=== PATIENT | male | born 1985 | race Caucasian/White ===

== ENCOUNTER 2018-02-26 13:13 | Emergency (ER) | payer BC, OTHER ==
--- OUTSIDE RECORDS SUMMARY | 2018-02-26 13:16 | XMS REPORT | Clinical Summary ---
:1985 Author Organization [facility] Address [address] [place] [id number] Phone Care Team Providers Name Role Phone Unavailable Primary Care Provider Unavailable Allergies Active Allergy Reactions Severity Noted Date Comments Sulfa (Sulfonamide Antibiotics) Anaphylaxis High 10/12/2015 Current Medications No known medications Active Problems Problem Noted Date Kidney stone 02/03/2016 Social History Tobacco Use Types Packs/Day Years Used Date Current Every Day Smoker 0.5 15 Smokeless Tobacco: Current User Chew Alcohol Use Drinks/Week oz/Week Comments No Sex Assigned at Date Recorded Not on file Last Filed Vital Signs Not on file Plan of Treatment Not on file Implants Implanted Type Area Terminal Worker Device Expiration Model / Identifier Date Serial / Lot Set Stent Injection 6x28cm [id number] - [id number] Stents-[employer] 2017 [id number] / Implanted: Qty: 1 on 02/03/2016 by Edgardo Almonte MD [facility] SCI: ONCOLOGY / [id number] Results Not on fileafter 02/25/2017
--- OUTSIDE RECORDS SUMMARY | 2018-02-26 13:16 | XMS REPORT | Clinical Summary ---
:1985 Author Organization [facility] Address [address] [place] [address] Care Team Providers Name Role Phone Asked, No Pcp Primary Care Provider Unavailable Allergies Active Allergy Reactions Severity Noted Date Comments Sulfa (Sulfonamide Antibiotics) 02/23/2016 THROAT SWELL Current Medications Prescription Sig. Disp. Refills Start Date End Date Status baclofen (LIORESAL) TAKE 1 TO 2 60 tablet 2 09/18/2017 Active 10 MG TABLETS BY tabletIndications: MOUTH AT Ankylosing BEDTIME FOR spondylitis of MUSCLE SPASMS lumbosacral region, Encounter for long-term (current) use of high-risk medication, Hyperuricemia, Fatigue, unspecified type, Renal insufficiency, Acute idiopathic gout of foot, unspecified laterality, Encounter for monitoring of methotrexate therapy, Leukocytosis, unspecified type folic acid Take 2 tablets 60 tablet 11 09/18/2017 Active (FOLVITE) 1 MG (2 mg total) by 9 tabletIndications: mouth daily. Ankylosing spondylitis of lumbosacral region, Encounter for long-term (current) use of high-risk medication, Hyperuricemia, Acute idiopathic gout of foot, unspecified laterality, Encounter for monitoring of methotrexate therapy, Leukocytosis, unspecified type, Renal insufficiency sertraline (ZOLOFT) Take 1 tablet 30 tablet 11 09/18/2017 Active 50 MG (50 mg total) 9 tabletIndications: by mouth daily. Acute idiopathic gout of foot, unspecified laterality, Hyperuricemia, Ankylosing spondylitis of lumbosacral region, Encounter for long-term (current) use of high-risk medication, Renal insufficiency, Depressed mood, Encounter for monitoring of methotrexate therapy, Leukocytosis, unspecified type, Obesity (BMI 30-39.9) methotrexate 2.5 MG Take 8 tablets 32 tablet 2 12/20/2017 Active tabletIndications: (20 mg total) 8 Ankylosing by mouth once a spondylitis of week for 90 lumbosacral region, days. 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 baclofen (LIORESAL) TAKE 1 TO 2 60 tablet 2 01/21/2017 Discontinued 10 MG TABLETS BY 7 tabletIndications: MOUTH AT (ankylosing BEDTIME FOR spondylitis), MUSCLE SPASMS Encounter for long-term (current) use of high-risk medication, Hyperuricemia, Fatigue, unspecified type, Renal insufficiency DULoxetine Take 1 capsule 30 capsule 2 01/21/2017 Discontinued (CYMBALTA) 60 MG (60 mg total) 7 capsuleIndications: by mouth daily. (ankylosing spondylitis), Encounter for long-term (current) use of high-risk medication, Hyperuricemia, Fatigue, unspecified type, Renal insufficiency methotrexate 2.5 MG Take 5 tablets 20 tablet 2 01/21/2017 Discontinued tabletIndications: (12.5 mg total) 7 (ankylosing by mouth once a spondylitis), week for 90 Encounter for days. long-term (current) use of high-risk medication folic acid Take 1 tablet 30 tablet 11 01/21/2017 Discontinued (FOLVITE) 1 MG (1 mg total) by 7 tabletIndications: mouth daily. (ankylosing spondylitis), Encounter for long-term (current) use of high-risk medication traMADol (ULTRAM) Take 1 tablet 120 tablet 2 01/21/2017 50 mg (50 mg total) 7 tabletIndications: by mouth every (ankylosing 6 (six) hours spondylitis), as needed for Encounter for moderate pain long-term (current) for up to 90 use of high-risk days. medication certolizumab pegol Inject 2 mL 6 mL 0 01/21/2017 (CIMZIA) 400 mg/2 (400 mg total) 7 mL (200 mg/mL x 2) under the skin syringe every 28 days kitIndications: for 90 days. (ankylosing spondylitis) ULORIC 40 mg TAKE 1 TABLET 30 tablet 0 02/18/2017 Discontinued tabletIndications: BY MOUTH EVERY 7 (ankylosing DAY spondylitis), Encounter for long-term (current) use of high-risk medication, Hyperuricemia, Fatigue, unspecified type, Renal insufficiency febuxostat (ULORIC) Take 1 tablet 30 tablet 2 02/26/2017 Discontinued 80 mg (80 mg total) 7 tabletIndications: by mouth daily (ankylosing for 90 days. spondylitis), Encounter for long-term (current) use of high-risk medication, Hyperuricemia, Fatigue, unspecified type, Renal insufficiency, Acute idiopathic gout of foot, unspecified laterality predniSONE Take 1 tablet 18 tablet 2 02/26/2017 Discontinued (DELTASONE) 10 mg (10 mg total) 7 tabletIndications: by mouth take Acute idiopathic as directed gout of foot, (take 3-2-1 unspecified tabs for 3-3-3 laterality, days each dose) Hyperuricemia, for up to 9 (ankylosing days. spondylitis), Encounter for long-term (current) use of high-risk medication, Renal insufficiency sertraline (ZOLOFT) Take 1 tablet 30 tablet 11 02/26/2017 Discontinued 25 MG (25 mg total) 7 tabletIndications: by mouth daily. Acute idiopathic gout of foot, unspecified laterality, Hyperuricemia, (ankylosing spondylitis), Encounter for long-term (current) use of high-risk medication, Renal insufficiency, Depressed mood predniSONE Take 1 tablet 20 tablet 0 03/05/2017 (DELTASONE) 10 mg (10 mg total) 7 tabletIndications: by mouth take Acute idiopathic as directed gout of foot, (take 4-3-2-1 unspecified tabs for laterality, 3-3-3-3 days Hyperuricemia, each dose) for (ankylosing up to 12 days. spondylitis), Encounter for long-term (current) use of high-risk medication, Renal insufficiency methotrexate 2.5 MG TAKE 5 TABLETS 20 tablet 2 04/11/2017 Discontinued tabletIndications: BY MOUTH ONCE A 7 (ankylosing WEEK spondylitis), Encounter for long-term (current) use of high-risk medication DULoxetine TAKE ONE 30 capsule 2 04/17/2017 Discontinued (CYMBALTA) 60 MG CAPSULE BY 7 capsule MOUTH EVERY DAY baclofen (LIORESAL) TAKE 1 TO 2 60 tablet 2 04/17/2017 Discontinued 10 MG TABLETS BY 7 tabletIndications: MOUTH AT (ankylosing BEDTIME FOR spondylitis), MUSCLE SPASMS Encounter for long-term (current) use of high-risk medication, Hyperuricemia, Fatigue, unspecified type, Renal insufficiency DULoxetine Take 1 capsule 30 capsule 2 04/18/2017 Discontinued (CYMBALTA) 60 MG (60 mg total) 7 capsule by mouth once daily for 30 days. certolizumab pegol Inject 400 mg Discontinued (CIMZIA) 400 mg/2 under the skin 7 mL (200 mg/mL x 2) every 14 syringe kit (fourteen) days. t injection every other week baclofen (LIORESAL) TAKE 1 TO 2 60 tablet 2 04/25/2017 Discontinued 10 MG TABLETS BY 8 tabletIndications: MOUTH AT (ankylosing BEDTIME FOR spondylitis), MUSCLE SPASMS Encounter for long-term (current) use of high-risk medication, Hyperuricemia, Fatigue, unspecified type, Renal insufficiency, Acute idiopathic gout of foot, unspecified laterality, Encounter for monitoring of methotrexate therapy methotrexate 2.5 MG Take 7 tablets 28 tablet 2 04/25/2017 tabletIndications: (17.5 mg total) 7 (ankylosing by mouth once a spondylitis), week for 90 Encounter for days. long-term (current) use of high-risk medication, Hyperuricemia, Acute idiopathic gout of foot, unspecified laterality, Encounter for monitoring of methotrexate therapy folic acid Take 2 tablets 60 tablet 11 04/25/2017 Discontinued (FOLVITE) 1 MG (2 mg total) by 8 tabletIndications: mouth daily. (ankylosing spondylitis), Encounter for long-term (current) use of high-risk medication, Hyperuricemia, Acute idiopathic gout of foot, unspecified laterality, Encounter for monitoring of methotrexate therapy sertraline (ZOLOFT) Take 1 tablet 30 tablet 11 04/25/2017 Discontinued 25 MG (25 mg total) 7 tabletIndications: by mouth daily. Acute idiopathic gout of foot, unspecified laterality, Hyperuricemia, (ankylosing spondylitis), Encounter for long-term (current) use of high-risk medication, Renal insufficiency, Depressed mood, Encounter for monitoring of methotrexate therapy febuxostat (ULORIC) Take 1 tablet 30 tablet 2 04/25/2017 80 mg (80 mg total) 7 tabletIndications: by mouth daily (ankylosing for 90 days. spondylitis), Encounter for long-term (current) use of high-risk medication, Hyperuricemia, Fatigue, unspecified type, Renal insufficiency, Acute idiopathic gout of foot, unspecified laterality, Encounter for monitoring of methotrexate therapy predniSONE Take 1 tablet 30 tablet 2 04/25/2017 (DELTASONE) 5 mg (5 mg total) by 7 tabletIndications: mouth daily for (ankylosing 90 days. spondylitis), Encounter for long-term (current) use of high-risk medication, Hyperuricemia, Acute idiopathic gout of foot, unspecified laterality, Encounter for monitoring of methotrexate therapy certolizumab pegol Inject 2 mL 4 mL 2 05/08/2017 (CIMZIA) 400 mg/2 (400 mg total) 7 mL (200 mg/mL x 2) under the skin syringe every 14 kitIndications: (fourteen) days (ankylosing for 90 days. spondylitis) sertraline (ZOLOFT) Take 1 tablet 30 tablet 11 07/05/2017 Discontinued 50 MG (50 mg total) 8 tabletIndications: by mouth daily. Acute idiopathic gout of foot, unspecified laterality, Hyperuricemia, Ankylosing spondylitis of lumbosacral region, Encounter for long-term (current) use of high-risk medication, Renal insufficiency, Depressed mood, Encounter for monitoring of methotrexate therapy, Leukocytosis, unspecified type, Obesity (BMI 30-39.9) methotrexate 2.5 MG TAKE 5 TABLETS 20 tablet 2 08/26/2017 Discontinued tabletIndications: BY MOUTH ONCE A 8 (ankylosing WEEK spondylitis), Encounter for long-term (current) use of high-risk medication baclofen (LIORESAL) TAKE 1 TO 2 60 tablet 2 08/29/2017 Discontinued 10 MG TABLETS BY 8 tabletIndications: MOUTH AT (ankylosing BEDTIME FOR spondylitis), MUSCLE SPASMS Encounter for long-term (current) use of high-risk medication, Hyperuricemia, Fatigue, unspecified type, Renal insufficiency DULoxetine TAKE ONE 30 capsule 2 08/29/2017 Discontinued (CYMBALTA) 60 MG CAPSULE BY 8 capsule MOUTH EVERY DAY DULoxetine Take 1 capsule 30 capsule 3 08/14/2017 (CYMBALTA) 60 MG (60 mg total) 7 capsule by mouth daily for 30 days. DULoxetine Take 1 capsule 30 capsule 2 09/18/2017 Discontinued (CYMBALTA) 60 MG (60 mg total) 8 capsuleIndications: by mouth once Ankylosing daily. spondylitis of lumbosacral region, Leukocytosis, unspecified type, Renal insufficiency, Hyperuricemia methotrexate 2.5 MG Take 7 tablets 28 tablet 2 09/18/2017 Discontinued tabletIndications: (17.5 mg total) 8 Ankylosing by mouth once a spondylitis of week for 90 lumbosacral region, days. Encounter for long-term (current) use of high-risk medication, Leukocytosis, unspecified type, Renal insufficiency, Hyperuricemia febuxostat (ULORIC) Take 1 tablet 90 tablet 1 09/18/2017 80 mg (80 mg total) 8 tabletIndications: by mouth daily Ankylosing for 90 days. spondylitis of lumbosacral region, Leukocytosis, unspecified type, Renal insufficiency, Hyperuricemia certolizumab pegol Inject 2 mL 2 mL 2 09/18/2017 Discontinued (CIMZIA) 400 mg/2 (400 mg total) 8 mL (200 mg/mL x 2) under the skin syringe every 28 days kitIndications: for 90 days. Ankylosing spondylitis of lumbosacral region methotrexate 2.5 MG Take 8 tablets 32 tablet 2 09/27/2017 Discontinued tabletIndications: (20 mg total) 8 Ankylosing by mouth once a spondylitis of week for 90 lumbosacral region, days. Encounter for long-term (current) use of high-risk medication, Leukocytosis, unspecified type, Renal insufficiency, Hyperuricemia, Encounter for methotrexate monitoring, Fall (on) (from) other stairs and steps, initial encounter, Hip injury, left, initial encounter clobetasol Apply topically 30 g 0 09/27/2017 (TEMOVATE) 0.05 % 2 (two) times a 8 ointmentIndications day for 14 : Ankylosing days. spondylitis of lumbosacral region, Leukocytosis, unspecified type, Encounter for long-term (current) use of high-risk medication, Hyperuricemia, Encounter for methotrexate monitoring, Fall (on) (from) other stairs and steps, initial encounter, Hip injury, left, initial encounter certolizumab pegol Inject 1 mL 6 mL 0 09/27/2017 (CIMZIA) 400 mg/2 (200 mg total) 8 mL (200 mg/mL x 2) under the skin syringe every 14 kitIndications: (fourteen) days Ankylosing for 90 days. spondylitis of lumbosacral region acetaminophen-codei Take 1-2 150 tablet 0 10/07/2017 ne (TYLENOL WITH tablets by 8 CODEINE #3) 300-30 mouth every 8 mg per (eight) hours tabletIndications: as needed for Ankylosing moderate pain spondylitis of for up to 30 lumbosacral region days. febuxostat (ULORIC) Take 80 mg by Discontinued 80 mg tablet mouth daily. 8 predniSONE Take 1-2 60 tablet 2 12/20/2017 Discontinued (DELTASONE) 5 mg tablets (5-10 8 tabletIndications: mg total) by Ankylosing mouth daily for spondylitis of 90 days. 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, Encounter for methotrexate monitoring, Hyperuricemia Hospital, Clinic, or Other Ordered Dose Route Frequency Start Date End Date Status Facility Administered Medication methylPREDNISolone acetate 160 mg IM once 02/26/2017 02/26/2017 Ended (DEPO-MEDROL) injection 160 mgIndications: Acute idiopathic gout of foot, unspecified laterality methylPREDNISolone acetate 40 mg IM once 12/12/2017 12/12/2017 Ended (DEPO-MEDROL) injection 40 mgIndications: Acute idiopathic gout, unspecified site methylPREDNISolone acetate 80 mg IM once 12/20/2017 12/20/2017 Ended (DEPO-MEDROL) injection 80 mgIndications: Ankylosing spondylitis of multiple sites in spine Active Problems Problem Noted Date 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 12/20/2017 Encounter for methotrexate monitoring 09/27/2017 Fall (on) (from) other stairs and steps, initial encounter 09/27/2017 Hip injury, left, initial encounter 09/27/2017 Rash and nonspecific skin eruption 09/27/2017 Depressed mood 02/26/2017 (ankylosing spondylitis) 06/29/2016 Encounter for long-term (current) use of high-risk medication 06/29/2016 Hyperuricemia 06/29/2016 Nephrolithiasis 06/29/2016 Renal insufficiency 06/29/2016 Fatigue 06/29/2016 Obesity (BMI 30-39.9) 06/29/2016 Acute right flank pain 04/28/2016 Calculus of urinary bladder 04/28/2016 Leukocytosis 04/28/2016 Encounters Date Type Specialty Care Team Description 02/03/2018 Documentation Rheumatology maryam Santiago MA 01/20/2018 Office Visit Orthopedic Surgery Jay, Left hip pain (Primary Dx); Lizandro Hargrove MD Femoroacetabular impingement of left hip; Tendinitis involving left hip abductors; Hip instability, left; Labral tear of hip, degenerative 01/08/2018 Orders Only Rheumatology Annel Rivera, 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 (Primary Dx); Ankylosing spondylitis of lumbosacral region; Nephrolithiasis; Renal insufficiency; Obesity (BMI 30-39.9); Encounter for methotrexate monitoring; Hyperuricemia 12/27/2017 Orders Only Rheumatology Annel Rivera, Hip injury, left, MD initial encounter (Primary Dx) 12/20/2017 Hospital Encounter Radiology Annel Rivera, Ankylosing spondylitis of lumbosacral region; Leukocytosis, unspecified type; Encounter for long-term (current) use of high-risk medication; Hyperuricemia; Encounter for methotrexate monitoring; Fall (on) (from) other stairs and steps, initial encounter; Hip injury, left, initial encounter 12/20/2017 Office Visit Rheumatology Annel Rivera, Ankylosing spondylitis of lumbosacral region (Primary Dx); Nephrolithiasis; Renal insufficiency; Obesity (BMI 30-39.9); 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; Encounter for methotrexate monitoring; Hyperuricemia; Fatigue, unspecified type; Fall (on) (from) other stairs and steps, initial encounter; Encounter for long-term (current) use of high-risk medication; Leukocytosis, unspecified type 12/20/2017 Orders Only Rheumatology Jack, Ankylosing spondylitis DAT Miles of multiple sites in spine (Primary Dx) 12/12/2017 Clinical Support Rheumatology 12/12/2017 Orders Only Rheumatology Jack, Acute idiopathic gout, DAT Miles unspecified site (Primary Dx) 10/07/2017 Orders Only Rheumatology Annel Rivera, Ankylosing spondylitis MD of lumbosacral region (Primary Dx) 09/27/2017 Hospital Encounter Radiology Annel Rivera, Ankylosing spondylitis of lumbosacral region; Leukocytosis, unspecified type; Encounter for long-term (current) use of high-risk medication; Hyperuricemia; Encounter for methotrexate monitoring; Fall (on) (from) other stairs and steps, initial encounter; Hip injury, left, initial encounter 09/27/2017 Hospital Encounter Radiology Annel Rivera, Ankylosing spondylitis of lumbosacral region; Leukocytosis, unspecified type; Encounter for long-term (current) use of high-risk medication; Hyperuricemia; Encounter for methotrexate monitoring; Fall (on) (from) other stairs and steps, initial encounter; Hip injury, left, initial encounter 09/27/2017 Office Visit Rheumatology Annel Rivera, Ankylosing spondylitis of lumbosacral region (Primary Dx); Leukocytosis, unspecified type; Encounter for long-term (current) use of high-risk medication; Hyperuricemia; Fatigue, unspecified type; Depressed mood; Obesity (BMI 30-39.9); Encounter for methotrexate monitoring; Fall (on) (from) other stairs and steps, initial encounter; Hip injury, left, initial encounter; Renal insufficiency; Rash and nonspecific skin eruption 09/27/2017 Procedure Pass Radiology 09/18/2017 Orders Only Rheumatology MiguelIliaAnnel, Ankylosing spondylitis of lumbosacral region (Primary Dx); Leukocytosis, unspecified type; Renal insufficiency; Encounter for long-term (current) use of high-risk medication; Hyperuricemia; Fatigue, unspecified type; Acute idiopathic gout of foot, unspecified laterality; Encounter for monitoring of methotrexate therapy; Depressed mood; Obesity (BMI 30-39.9) 08/14/2017 Refill Rheumatology Ginger Santiago MA 08/09/2017 Refill Rheumatology Annel Rivera AS (ankylosing spondylitis); Encounter for long-term (current) use of high-risk medication; Hyperuricemia; Fatigue, unspecified type; Renal insufficiency 08/07/2017 Refill Rheumatology Annel Rivera AS (ankylosing spondylitis); Encounter for long-term (current) use of high-risk medication 07/05/2017 Office Visit Rheumatology Annel Rivera, Ankylosing spondylitis of lumbosacral region (Primary Dx); Encounter for long-term (current) use of high-risk medication; Renal insufficiency; Nephrolithiasis; Leukocytosis, unspecified type; Obesity (BMI 30-39.9); Depressed mood; Fatigue, unspecified type; Hyperuricemia; Encounter for monitoring of methotrexate therapy; Acute idiopathic gout of foot, unspecified laterality; Ankylosing spondylitis of multiple sites in spine 04/25/2017 Office Visit Rheumatology Annel Rivera AS (ankylosing spondylitis) (Primary Dx); Acute right flank pain; Obesity (BMI 30-39.9); Leukocytosis, unspecified type; Calculus of urinary bladder; Nephrolithiasis; Renal insufficiency; Encounter for long-term (current) use of high-risk medication; Hyperuricemia; Fatigue, unspecified type; Depressed mood; Acute idiopathic gout of foot, unspecified laterality; Encounter for monitoring of methotrexate therapy 04/18/2017 Refill Rheumatology Ginger Santiago MA 04/13/2017 Refill Rheumatology Annel Rivera AS (ankylosing spondylitis); Encounter for long-term (current) use of high-risk medication; Hyperuricemia; Fatigue, unspecified type; Renal insufficiency 04/11/2017 Refill Rheumatology Annel Rivera AS (ankylosing spondylitis); Encounter for long-term (current) use of high-risk medication 03/05/2017 Orders Only Rheumatology Annel Rivera, Acute idiopathic gout of foot, unspecified laterality; Hyperuricemia; (ankylosing spondylitis); Encounter for long-term (current) use of high-risk medication; Renal insufficiency 02/26/2017 Office Visit Rheumatology Annel Rivera, Acute idiopathic gout of foot, unspecified laterality (Primary Dx); Hyperuricemia; (ankylosing spondylitis); Encounter for long-term (current) use of high-risk medication; Fatigue, unspecified type; Depressed mood; Renal insufficiency after 02/25/2017 Family History Medical History Relation Name Comments Diabetes Father No Known Problems Mother Diabetes Paternal Grandfather Diabetes Paternal Uncle Diabetes Paternal Uncle Relation Name Status Comments Father Mother Paternal Grandfather Paternal Uncle Paternal Uncle Social History Tobacco Use Types Packs/Day Years Used Date Former Smoker 0.5 10 Smokeless Tobacco: Never Used Comments: quit 02/06/16 Alcohol Use Drinks/Week oz/Week Comments Yes rarely Sex Assigned at Date Recorded Not on file Last Filed Vital Signs Vital Sign Reading Time Taken Blood Pressure 143/89 12/20/2017 10:43 AM CDT Pulse 85 12/20/2017 10:43 AM CDT Temperature 36.6 C (97.8 F) 01/20/2018 8:40 AM CDT Respiratory Rate - - Oxygen Saturation 98% 09/27/2017 12: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 Inhaled Oxygen Concentration - - Weight 113 kg (250 lb) 01/20/2018 8:40 AM CDT Height 177.8 cm (5' 10") 01/20/2018 8:40 AM CDT Body Mass Index 35.87 01/20/2018 8:40 AM CDT Plan of Treatment Health Maintenance Due Date Last Done Comments INFLUENZA VACCINE 04/16/2018 Implants Implanted Type Area Commutator Presser Device Expiration Model / Identifier Date Serial / Lot Stent Uretl S-Flx Kwart Retro-Inject 6fr 28cm - [id number] Peripheral or N/A: [employer] 10/20/2018 [id number] / Implanted: 03/06/2016 (Quantity not on file) Biliary Stents N/A / [id number] Results Urinalysis, automated with microscopy (01/20/2018 10:55 AM)Only the most recent of3 resultswithin the time period is included. Component Value Ref Range Color, UA YELLOW YELLOW Appearance CLEAR CLEAR Specific gravity, urine 1.015 1.001 - 1.035 pH, urine 6.0 5.0 - 8.0 Glucose, urine TRACE (A) NEGATIVE Bilirubin, UA NEGATIVE NEGATIVE Ketones, UA NEGATIVE NEGATIVE Occult blood, urine NEGATIVE NEGATIVE Protein, UA NEGATIVE NEGATIVE Nitrite, UA NEGATIVE NEGATIVE Leukocyte esterase, UA NEGATIVE NEGATIVE WBC, UA NONE SEEN < OR=5 /HPF RBC, UA NONE SEEN < OR=2 /HPF Squamous epithelial cells, UA NONE SEEN < OR=5 /HPF Bacteria, UA NONE SEEN NONE SEEN /HPF Hyaline casts, UA NONE SEEN NONE SEEN /LPF Specimen Performing Laboratory Urine [facility] Narrative FASTING:NO FASTING: NO Sedimentation rate (01/20/2018 10:55 AM)Only the most recent of3 resultswithin the time period is included. Component Value Ref Range Sedimentation rate 2 < OR=15 mm/h Specimen Performing Laboratory Blood [facility] Narrative FASTING:NO FASTING: NO CBC with platelet and differential (01/20/2018 10:55 AM)Only the most recent of3 resultswithin the time period is included. Component Value Ref Range WBC 19.7 (H) 3.8 - 10.8 Thousand/uL RBC 5.54 4.20 - 5.80 Million/uL HGB 15.8 13.2 - 17.1 g/dL HCT 48.0 38.5 - 50.0 % MCV 86.6 80.0 - 100.0 fL MCH 28.5 27.0 - 33.0 pg MCHC 32.9 32.0 - 36.0 g/dL RDW 14.9 11.0 - 15.0 % Platelet count 332 140 - 400 Thousand/uL MPV 9.1 7.5 - 12.5 fL Neutrophils, absolute 12,352 (H) 1,500 - 7,800 cells/uL Lymphocytes, absolute 5,555 (H) 850 - 3,900 cells/uL Monocytes, absolute 1,517 (H) 200 - 950 cells/uL Eosinophils, absolute 138 15 - 500 cells/uL Basophils, absolute 138 0 - 200 cells/uL Neutrophils 62.7 % Lymphocytes 28.2 % Monocytes 7.7 % Eosinophils 0.7 % Basophils + RC 0.7 % Nucleated RBC <enter> Comment: Review of peripheral smear confirms automated results. Specimen Performing Laboratory [facility] Narrative FASTING:NO FASTING: NO C-reactive protein (01/20/2018 10:55 AM)Only the most recent of3 resultswithin the time period is included. Component Value Ref Range CRP 11.8 (H) <8.0 mg/L Specimen Performing Laboratory [facility] Narrative FASTING:NO FASTING: NO Uric acid level (01/20/2018 10:55 AM)Only the most recent of3 resultswithin the time period is included. Component Value Ref Range Uric acid 4.4 4.0 - 8.0 mg/dL Comment: Therapeutic target for gout patients: <6.0 mg/dL Specimen Performing Laboratory [facility] Narrative FASTING:NO FASTING: NO Comprehensive metabolic panel (01/20/2018 10:55 AM)Only the most recent of3 resultswithin the time period is included. Component Value Ref Range Glucose 97 65 - 139 mg/dL Comment: Non-fasting reference interval BUN, whole blood 20 7 - 25 mg/dL Creatinine 1.04 0.60 - 1.35 mg/dL EGFR Non-Afr. Ukrainian 96 > OR=60 mL/min/1.73m2 EGFR 111 > OR=60 mL/min/1.73m2 BUN/creatinine ratio NOT APPLICABLE 6 - 22 (calc) Sodium 143 135 - 146 mmol/L Potassium 3.8 3.5 - 5.3 mmol/L Chloride 104 98 - 110 mmol/L CO2 27 20 - 31 mmol/L Calcium 10.1 8.6 - 10.3 mg/dL Protein 6.8 6.1 - 8.1 g/dL Albumin, S 3.9 3.6 - 5.1 g/dL Globulin, total 2.9 1.9 - 3.7 g/dL (calc) Albumin/globulin ratio 1.3 1.0 - 2.5 (calc) Total bilirubin 0.3 0.2 - 1.2 mg/dL Alkaline phosphatase 82 40 - 115 U/L AST 11 10 - 40 U/L ALT 19 9 - 46 U/L Specimen Performing Laboratory [facility] Narrative FASTING:NO FASTING: NO XR Hip 4 Views Left (01/20/2018 8:52 AM) Specimen Performing Laboratory [place] [id number] Narrative tonnis 0. LCEA 23 deg. Cam KAUR alpha angle 77 degrees. No fx. No HO MRI Lower Extremity Joint Wo Contrast Left (12/20/2017 6:32 PM) [place] [address] Narrative EXAMINATION:MRI LOWER EXTREMITY JOINT WO CONTRAST LEFT CLINICAL HISTORY:M45.7 Ankylosing spondylitis of lumbosacral region, D72.829 Elevated white blood cell countunspecified, patinet with ASrecent fall from height wiht left hip injury TECHNIQUE: Multiplanar, multisequence MR imaging examination of the lefthip obtained without contrast. COMPARISON:X-ray, 09/27/2017 IMPRESSION: 1.Osseous bump at the anterior superior femoral head neck junction with loss of sphericity. This can be seen with cam-type KAUR. A subtle nondisplaced anterosuperior labral tear is noted on series 10 image 1 and series 5 image 12. 2.A small focus of subcortical marrow signal abnormality in the posterior inferior femoral head may indicate a contrecoup injury in the setting of KAUR. 3.No acute fracture or AVN identified in the left hip or femoral head. Incidental note is made of a zone of AVN superiorly in the contralateral femoral head partially visualized. There is no definite cortical collapse, though there is mild flattening in the posterior superior right femoral head. 4.No left hip joint effusion or synovitis. No erosion identified. 5.Visualized portion of the sciatic nerve well-maintained. The partially visualized urinary bladder is distended. 6.Mild gluteus medius medius and minimus insertional tendinitis, without a discrete tear identified. Remaining visualized muscle groups are well- maintained. SUMMARY: CAM-type KAUR with nondisplaced anterosuperior labral tear and possible contrecoup injury in the posterior inferior femoral head. No acute fracture identified. Mild gluteal tendinitis. AVN in the contralateral femoral head partially visualized. [facility]-[id number] Procedure Note [facility], Radiology Results Incoming - 12/20/2017 8:13 PM CDT EXAMINATION: MRI LOWER EXTREMITY JOINT WO CONTRAST LEFT CLINICAL HISTORY: M45.7 Ankylosing spondylitis of lumbosacral region, D72.829 Elevated white blood cell count unspecified, patinet with recent fall from height wiht left hip injury TECHNIQUE: Multiplanar, multisequence MR imaging examination of the left hip obtained without contrast. COMPARISON: X-ray, 09/27/2017 IMPRESSION: 1. Osseous bump at the anterior superior femoral head neck junction with loss of sphericity. This can be seen with cam-type KAUR. A subtle nondisplaced anterosuperior labral tear is noted on series 10 image 1 and series 5 image 12. 2. A small focus of subcortical marrow signal abnormality in the posterior inferior femoral head may indicate a contrecoup injury in the setting of KAUR. 3. No acute fracture or AVN identified in the left hip or femoral head. Incidental note is made of a zone of AVN superiorly in the contralateral femoral head partially visualized. There is no definite cortical collapse, though there is mild flattening in the posterior superior right femoral head. 4. No left hip joint effusion or synovitis. No erosion identified. 5. Visualized portion of the sciatic nerve well-maintained. The partially visualized urinary bladder is distended. 6. Mild gluteus medius medius and minimus insertional tendinitis, without a discrete tear identified. Remaining visualized muscle groups are well- maintained. SUMMARY: CAM-type KAUR with nondisplaced anterosuperior labral tear and possible contrecoup injury in the posterior inferior femoral head. No acute fracture identified. Mild gluteal tendinitis. AVN in the contralateral femoral head partially visualized. [facility]-[id number] XR Sacroiliac Joints 3+ Vw (09/27/2017 2:45 PM) Specimen Performing Laboratory [facility] [address] [place] [id number] Narrative EXAMINATION:XR SACROILIAC JOINTS 3VW CLINICAL HISTORY:M45.7 Ankylosing spondylitis of lumbosacral region, D72.829 Elevated white blood cell countunspecified, . recent fall wiht left SIJ pain IMPRESSION: 3 views were obtained. The sacroiliac joints bilaterally are well aligned. There is no evidence of bony fusion of the joint. There is no evidence of subchondral sclerosis or lytic changes. The sacrum and iliac bones are unremarkable. There is no evidence of significant osteoarthritic changes. [facility][id number] Procedure Note Interface, Radiology Results Incoming - 09/27/2017 5:24 PM DRAWING IN MACHINE TENDER EXAMINATION: XR SACROILIAC JOINTS 3 VW CLINICAL HISTORY: M45.7 Ankylosing spondylitis of lumbosacral region, D72.829 Elevated white blood cell count unspecified, . recent fall wiht left SIJ pain IMPRESSION: 3 views were obtained. The sacroiliac joints bilaterally are well aligned. There is no evidence of bony fusion of the joint. There is no evidence of subchondral sclerosis or lytic changes. The sacrum and iliac bones are unremarkable. There is no evidence of significant osteoarthritic changes. [id number] XR Hip 2-3 View Left (09/27/2017 2:45 PM) Specimen Performing Laboratory [facility] [address] [place] [address] Narrative EXAMINATION:XR HIP 2-3 VIEWS LEFT CLINICAL HISTORY:M45.7 Ankylosing spondylitis of lumbosacral region, D72.829 Elevated white blood cell countunspecified, patinet with ASrecent fall from height wiht left hip injury COMPARISON:None. IMPRESSION: There is no evidence of left hip fracture, dislocation, or joint effusion. Bone mineralization is normal. [facility]-[id number] Procedure Note Hm Interface, Radiology Results Incoming - 09/27/2017 3:18 PM DRAWING IN MACHINE TENDER EXAMINATION: XR HIP 2-3 VIEWS LEFT CLINICAL HISTORY: M45.7 Ankylosing spondylitis of lumbosacral region, D72.829 Elevated white blood cell count unspecified, patinet with recent fall from height wiht left hip injury COMPARISON: None. IMPRESSION: There is no evidence of left hip fracture, dislocation, or joint effusion. Bone mineralization is normal. [facility]-[id number] TB GOLD Quantiferon (07/05/2017 11:23 AM) Component Value Ref Range Quantiferon TB gold NEGATIVE NEGATIVE Comment: Negative test result. M. tuberculosis complex infection unlikely. Quantiferon NIL value 0.07 IU/mL Quantiferon mitogen NIL value >10.00 IU/mL Quantiferon TB NIL value 0.00 IU/mL Comment: The Nil tube value is used to determine if the patient has a preexisting immune response which could cause a false-positive reading on the test. In order for a test to be valid, the Nil tube must have a value of less than or equal to 8.0 IU/mL. The mitogen control tube is used to assure the patient has a healthy immune status and also serves as a control for correct blood handling and incubation. It is used to detect false-negative readings. The mitogen tube must have a gamma interferon value of greater than or equal to 0.5 IU/mL higher than the value of the Nil tube. The TB antigen tube is coated with the M. tuberculosis specific antigens. For a test to be considered positive, the TB antigen tube value minus the Nil tube value must be greater than or equal to 0.35 IU/mL. For additional information, please refer to http://education.[employer]/faq/QFT (This link is being provided for informational/ educational purposes only.) Specimen Performing Laboratory [facility] Narrative FASTING:YES Vitamin D 25 hydroxy level (07/05/2017 11:23 AM) Component Value Ref Range Vitamin D, 25-hydroxy 42 30 - 100 ng/mL Comment: Vitamin D Status 25-OH Vitamin D: Deficiency:<20 ng/mL Insufficiency: 20 - 29 ng/mL Optimal: > or=30 ng/mL For 25-OH Vitamin D testing on patients on D2-supplementation and patients for whom quantitation of D2 and D3 fractions is required, the QuestAssureD(TM) 25-OH VIT D, (D2,D3), LC/MS/MS is recommended: order code 88056 (patients >2yrs). For more information on this test, go to: http://education.[employer]/faq/SWH859 (This link is being provided for informational/educational purposes only.) Specimen Performing Laboratory [facility] Narrative FASTING:YES Thyroid stimulating hormone (07/05/2017 11:23 AM) Component Value Ref Range TSH 2.17 0.40 - 4.50 mIU/L Specimen Performing Laboratory [facility] Narrative FASTING:YES T4, free (07/05/2017 11:23 AM) Component Value Ref Range T4, free 1.2 0.8 - 1.8 ng/dL Specimen Performing Laboratory [facility] Narrative FASTING:YES after 02/25/2017 Insurance Payer Benefit Plan / Group Subscriber ID Type Phone Address BCBS BS OUT OF STATE xxxxxxxxxxxx PPO Home: [address] [phone] [phone]
[2018-02-26] MEDS ORDERED: NA CHLORIDE 0.9% 1,000 ML ONE (14:16)
[2018-02-26] MEDS ORDERED: MORPHINE 4 MG/ML SYR ONE (14:16)
[2018-02-26 14:21] LABS: Potassium 3.6 mEq/L (3.6-5.0)
[2018-02-26 14:24] LABS: Albumin 3.9 g/dL (3.2-5.5); Bilirubin Total 0.8 mg/dL (0.3-1.2); Protein, Total 8.1 g/dL (6.0-8.3)
[2018-02-26 14:32] LABS: Absolute Lymphocytes (CBC) 3.3 K/uL (0.7-4.9); Absolute Monocytes 2.8 K/uL (0.1-1.3); Absolute Neutrophil 14.3 K/uL (1.8-8.0); Eosinophils % 2.7 % (0-4.4); Hematocrit 44.8 % (39.6-49.0); Lymphocytes % 15.8 % (15.3-44.8); MCH 28.2 pg (27.0-35.0); MCV 85.2 fL (80-100); MPV 7.7 fL (7.6-11.3); Monocytes % 13.3 % (3.3-12.3); RBC Red Blood Cell Count 5.26 M/uL (4.33-5.43)
[2018-02-26 15:33] LABS: Urine Blood 1+ (NEG); Urine Glucose NEGATIVE (NEG); Urine Protein TRACE (NEG)
--- NOTE | 2018-02-26 15:34 | ER ---
Nurse's Notes [facility] Name: Seble Potter II Age: 32 yrs Sex: Male : 1985 Arrival Date: 02/26/2018 Time: 13:17 Bed 16 Private MD: None, None Diagnosis: Acute embolism and thrombosis of deep veins of lower extremity;Urinary tract infection, site not specified Presentation: 02/26 13:22 Presenting complaint: Patient states: Left leg pain since Saturday that is worse with aj movement. Patient also reports vomiting since Saturday as well. Transition of care: patient was not received from another setting of care. Onset of symptoms was February 23, 2018. Risk Assessment: Do you want to hurt yourself or someone else? Patient reports no desire to harm self or others. Care prior to arrival: None. 13:22 Method Of Arrival: Ambulatory 13:22 Acuity: KARL 3 16:02 Initial Sepsis Screen: Does the patient meet any 2 criteria? No. Patient's initial jl7 sepsis screen is negative. Does the patient have a suspected source of infection? No. Patient's initial sepsis screen is negative. Triage Assessment: 13:24 General: Appears in no apparent distress. uncomfortable, Behavior is calm, cooperative, aj appropriate for age. Pain: Complains of pain in left leg Pain currently is 7 out of 10 on a pain scale. Neuro: Level of Consciousness is awake, alert, obeys commands, Oriented to person, place, time, situation, Appropriate for age. Respiratory: Airway is patent Respiratory effort is even, unlabored, Respiratory pattern is regular, symmetrical. GI: Reports nausea, vomiting. Derm: Skin is intact, is healthy with good turgor, Skin is pink, warm \T\ dry. normal. Musculoskeletal: Reports pain in left leg. Historical: - Allergies: 13:24 Sulfa (Sulfonamide Antibiotics); aj - Home Meds: 13:24 cimzia [Active]; Methotrexate Sodium Oral [Active]; Baclofen Oral [Active]; aj - PMHx: 13:24 Colitis; Gout; Kidney stones; ankylosing spondilitis; aj - Immunization history:: Adult Immunizations up to date. - Social history:: Smoking status: Patient/guardian denies using tobacco. - Ebola Screening: : Patient negative for fever greater than or equal to 101.5 degrees Fahrenheit, and additional compatible Ebola Virus Disease symptoms Patient denies exposure to infectious person Patient denies travel to an Ebola-affected area in the 21 days before illness onset No symptoms or risks identified at this time. - Family history:: not pertinent. - Hospitalizations: : No recent hospitalization is reported. Screenin:33 Abuse screen: Denies threats or abuse. Denies injuries from another. Nutritional jl7 screening: Has had N/V for 3 or more days. Tuberculosis screening: No symptoms or risk factors identified. Fall Risk IV access (20 points). Total Dupree Fall Scale indicates No Risk (0-24 pts). Assessment: 13:33 General: Appears in no apparent distress. uncomfortable, Behavior is calm, cooperative, jl7 appropriate for age. Pain: Complains of pain in left gluteus erinn Pain radiates to left gluteal fold, left hamstring, posterior aspect of left knee, left calf and medial aspect of left thigh Pain currently is 7 out of 10 on a pain scale. Quality of pain is described as aching, Pain began 2-3 days ago. Is continuous. Neuro: Level of Consciousness is awake, alert, obeys commands, Oriented to person, place, time, situation. Cardiovascular: Patient's skin is warm and dry. Respiratory: Airway is patent Respiratory effort is even, unlabored, Respiratory pattern is regular, symmetrical. GI: Abdomen is round non-distended, Reports diarrhea, nausea, vomiting, since Saturday. : No signs and/or symptoms were reported regarding the genitourinary system. EENT: No signs and/or symptoms were reported regarding the EENT system. Derm: Skin is pink, warm \T\ dry. Musculoskeletal: Reports pain in left leg since Saturday. 14:58 Reassessment: Patient and/or family updated on plan of care and expected duration. Pain jl7 level reassessed. Patient is alert, oriented x 3, equal unlabored respirations, skin warm/dry/pink. Vital Signs: 13:24 BP 135 / 92; Pulse 115; Resp 20; Temp 98.0; Pulse Ox 96% on R/A; Weight 117.93 kg; aj Height 5 ft. 10 in. (177.80 cm); Pain 7/10; 15:30 BP 146 / 90; Pulse 98; Resp 16; Pulse Ox 97% ; jl7 13:24 Body Mass Index 37.31 (117.93 kg, 177.80 cm) aj ED Course: 13:17 Patient arrived in ED. mr 13:17 None, None is Private Physician. mr 13:23 Triage completed. aj 13:24 Arm band placed on left wrist. Patient placed in an exam room. aj 13:28 Sb Upton, RN is Primary Nurse. jl7 13:33 Patient has correct armband on for positive identification. Placed in gown. Bed in low jl7 position. Call light in reach. Side rails up X 1. Pulse ox on. NIBP on. 13:36 Steph Fragoso FNP is PHCP. kav 13:36 Misha Tse MD is Attending Physician. kav 13:45 Initial lab(s) drawn, by me, sent to lab. Urine collected: clean catch specimen, jeffery mh5 colored. Inserted saline lock: 22 gauge in left hand, using aseptic technique. Blood collected. 14:30 Patient taken to ultrasound. aa4 14:47 US Extremity Venous Unilateral Ltd In Process Unspecified. EDMS 14:47 Ultrasound completed. Patient moved back from ultrasound. aa4 14:58 CPK Sent. jl7 15:44 Pillow given. Pulse ox on. NIBP on. mh5 16:00 No provider procedures requiring assistance completed. IV discontinued, intact, jl7 bleeding controlled, No redness/swelling at site. Pressure dressing applied. Administered Medications: 14:57 Drug: NS 0.9% 1000 ml Route: IV; Rate: 1000 ml; Site: left antecubital; jl7 16:00 Follow up: IV Status: Completed infusion jl7 14:58 Not Given (Other Intervention Used): NS 0.9% 1000 ml IV at 125 ml/hr continuous jl7 14:58 Drug: morphine 4 mg Route: IVP; Site: left antecubital; jl7 16:00 Follow up: Response: No adverse reaction; Pain is decreased jl7 Outcome: 15:34 Discharge ordered by . kav 16:02 Discharged to home ambulatory. jl7 16:02 Condition: stable 16:02 Discharge instructions given to patient, Instructed on discharge instructions, follow up and referral plans. medication usage, Demonstrated understanding of instructions, follow-up care, medications, Prescriptions given X 3. 16:03 Patient left the ED. jl7 Signatures: [email or web address] Paula Traore, RN RN aj Steph Fragoso, PRODUCTION TESTER PRODUCTION TESTER Neha Caldwell Amanda 4 Neha [place] [facility] Sb Upton, ALTON RN jl7
--- NOTE | 2018-02-26 15:34 | EDPHYS ---
Physician Documentation [facility] Name: Seble Potter II Age: 32 yrs Sex: Male : 1985 Arrival Date: 02/26/2018 Time: 13:17 Bed 16 Private MD: None, None ED Physician Misha Tse HPI: 02/26 13:39 This 32 yrs old Male presents to ER via Ambulatory with complaints of Leg kav Pain. 13:47 The patient presents with pain, that is acute. The complaints affect the left lateral kav ankle and left calf. Context: The problem was sustained at an unknown site. Onset: The symptoms/episode began/occurred acutely. 13:48 Onset: The symptoms/episode began/occurred 3 hour(s) ago. Modifying factors: The kav symptoms are alleviated by Muscle relaxers for pain. Associated signs and symptoms: Pertinent positives: calf tenderness, of the left lateral ankle and left calf. Treatment prior to arrival includes: prescription medications, cyclobenzaprine. Severity of symptoms: At their worst the symptoms were moderate, a " 7" out of "10". The patient has not experienced similar symptoms in the past. Historical: - Allergies: 13:24 Sulfa (Sulfonamide Antibiotics); aj - Home Meds: 13:24 cimzia [Active]; Methotrexate Sodium Oral [Active]; Baclofen Oral [Active]; aj - PMHx: 13:24 Colitis; Gout; Kidney stones; ankylosing spondilitis; aj - Immunization history:: Adult Immunizations up to date. - Social history:: Smoking status: Patient/guardian denies using tobacco. - Ebola Screening: : Patient negative for fever greater than or equal to 101.5 degrees Fahrenheit, and additional compatible Ebola Virus Disease symptoms Patient denies exposure to infectious person Patient denies travel to an Ebola-affected area in the 21 days before illness onset No symptoms or risks identified at this time. - Family history:: not pertinent. - Hospitalizations: : No recent hospitalization is reported. ROS: 13:51 Constitutional: Negative for fever, chills, and weight loss, Eyes: Negative for injury, kav pain, redness, and discharge, ENT: Negative for injury, pain, and discharge, Neck: Negative for injury, pain, and swelling, Cardiovascular: Negative for chest pain, palpitations, and edema, Respiratory: Negative for shortness of breath, cough, wheezing, and pleuritic chest pain, Back: Negative for injury and pain, : Negative for injury, bleeding, discharge, and swelling, Skin: Negative for injury, rash, and discoloration, Neuro: Negative for headache, weakness, numbness, tingling, and seizure, Psych: Negative for depression, anxiety, suicide ideation, homicidal ideation, and hallucinations, Allergy/Immunology: Negative for hives, rash, and allergies, Endocrine: Negative for neck swelling, polydipsia, polyuria, polyphagia, and marked weight changes, Hematologic/Lymphatic: Negative for swollen nodes, abnormal bleeding, and unusual bruising. 13:51 Abdomen/GI: Positive for nausea. 13:51 MS/extremity: Positive for pain, of the left lateral ankle and left calf. Exam: 13:51 Constitutional: This is a well developed, well nourished patient who is awake, alert, kav and in no acute distress. Head/Face: Normocephalic, atraumatic. Eyes: Pupils equal round and reactive to light, extra-ocular motions intact. Lids and lashes normal. Conjunctiva and sclera are non-icteric and not injected. Cornea within normal limits. Periorbital areas with no swelling, redness, or edema. ENT: Nares patent. No nasal discharge, no septal abnormalities noted. Tympanic membranes are normal and external auditory canals are clear. Oropharynx with no redness, swelling, or masses, exudates, or evidence of obstruction, uvula midline. Mucous membranes moist. Neck: Trachea midline, no thyromegaly or masses palpated, and no cervical lymphadenopathy. Supple, full range of motion without nuchal rigidity, or vertebral point tenderness. No Meningismus. Chest/axilla: Normal chest wall appearance and motion. Nontender with no deformity. No lesions are appreciated. Cardiovascular: Regular rate and rhythm with a normal S1 and S2. No gallops, murmurs, or rubs. Normal PMI, no JVD. No pulse deficits. Respiratory: Lungs have equal breath sounds bilaterally, clear to auscultation and percussion. No rales, rhonchi or wheezes noted. No increased work of breathing, no retractions or nasal flaring. Abdomen/GI: Soft, non-tender, with normal bowel sounds. No distension or tympany. No guarding or rebound. No evidence of tenderness throughout. Back: No spinal tenderness. No costovertebral tenderness. Full range of motion. Skin: Warm, dry with normal turgor. Normal color with no rashes, no lesions, and no evidence of cellulitis. Neuro: Awake and alert, GCS 15, oriented to person, place, time, and situation. Cranial nerves II-XII grossly intact. Motor strength 5/5 in all extremities. Sensory grossly intact. Cerebellar exam normal. Normal gait. Psych: Awake, alert, with orientation to person, place and time. Behavior, mood, and affect are within normal limits. 13:51 Musculoskeletal/extremity: Extremities: noted in the left lateral ankle and left calf: ROM: limited active range of motion, in the left leg, Circulation is intact in all extremities. Pulses: noted to be 2+ in the left posterior tibial artery, Sensation intact. Joints: All joints are normal except the left lateral ankle and left calf displays painful range of motion, Weight bearing: able to fully bear weight, without difficulty, DVT Exam: pain, that is moderate, of the left leg. Vital Signs: 13:24 BP 135 / 92; Pulse 115; Resp 20; Temp 98.0; Pulse Ox 96% on R/A; Weight 117.93 kg; aj Height 5 ft. 10 in. (177.80 cm); Pain 7/10; 15:30 BP 146 / 90; Pulse 98; Resp 16; Pulse Ox 97% ; jl7 13:24 Body Mass Index 37.31 (117.93 kg, 177.80 cm) aj MDM: 13:36 Medical screening is not applicable. [facility] 15:33 Data reviewed: vital signs, nurses notes, lab test result(s), radiologic studies, [facility] ultrasound. 06 13:47 Order name: CBC with Diff [facility] 02/26 15:33 Interpretation: Normal except: RDW 15.3; MN% 13.3; NEUT A 14.3. [facility] 02/26 13:47 Order name: CMP; Complete Time: 14:34 [facility] 02/26 14:34 Interpretation: Normal except: GLUC 134; CRE 1.47; GFR 56. [facility] 02/26 14:36 Order name: CPK [facility] 02/26 14:36 Order name: Creatine Phosphokinase; Complete Time: 15:33 EDMS 02/26 15:33 Interpretation: Within normal limits. kav 02/26 14:59 Order name: Urine Dipstick--Ancillary (enter results); Complete Time: 15:35 bd 02/26 15:35 Interpretation: Normal except: UBLD 1+; UESTR TRACE. [facility] 02/26 15:38 Order name: Urine Microscopic Only [facility] 02/26 13:47 Order name: Urine Dipstick-Ancillary (obtain specimen); Complete Time: 14:58 [facility] 02/26 13:47 Order name: US Extremity Venous Unilateral Ltd [facility] Administered Medications: 14:57 Drug: NS 0.9% 1000 ml Route: IV; Rate: 1000 ml; Site: left antecubital; [facility] 16:00 Follow up: IV Status: Completed infusion [facility] 14:58 Not Given (Other Intervention Used): NS 0.9% 1000 ml IV at 125 ml/hr continuous [facility] 14:58 Drug: morphine 4 mg Route: IVP; Site: left antecubital; 7 16:00 Follow up: Response: No adverse reaction; Pain is decreased [facility] Disposition: 16:10 Co-signature as Attending Physician, Misha Tse MD I agree with the assessment and kdr plan of care. Disposition: 02/26/18 15:34 Discharged to Home. Impression: Acute embolism and thrombosis of deep veins of lower extremity, Urinary tract infection, site not specified. - Condition is Stable. - Discharge Instructions: Urinary Tract Infection, Huah-jk-Nizk. - Prescriptions for Eliquis 5 mg Oral tablet - take 1 tablet by ORAL route 2 times per day; 30 tablet. Eliquis 5 mg Oral tablet - take 2 tablet by ORAL route 2 times per day for 7 days; 14 tablet. Levaquin 500 mg Oral Tablet - take 1 tablet by ORAL route once daily for 7 days; 7 tablet. - Medication Reconciliation Form, Thank You Letter, Antibiotic Education, Prescription Opioid Use form. - Follow up: Private Physician; When: 2 - 3 days; Reason: Recheck today's complaints, Continuance of care, Re-evaluation by your physician. - Problem is new. - Symptoms are unchanged. - Notes: f/u with pcp regarding diagnosis DVT LLE. you have been prescribed Eliquis (anticoagulant) for your DVT. you will start out with Eliquis 10 mg po bid x 7 days then, Eliquis 5 mg po bid. please let your pcp know that you are taking an anticoagulant f/u with nephrology regarding kidney function cr 1.47 Signatures: Dispatcher [employer] Paula Traore, RN RN Misha Barbosa MD MD kdr Vern, Katherine, TANK FURNACE OPERATOR TANK FURNACE OPERATOR Sb James RN RN jl7 Corrections: (The following items were deleted from the chart) 15:35 15:15 Within normal limits. brisa ledezma 16:03 15:34 02/26/2018 15:34 Discharged to Home. Impression: Acute embolism and thrombosis of jl7 deep veins of lower extremity; Urinary tract infection, site not specified. Condition is Stable. Discharge Instructions: Urinary Tract Infection, Dgdr-la-Aeao. Prescriptions for Eliquis 5 mg Oral tablet - take 1 tablet by ORAL route 2 times per day; 30 tablet, Eliquis 5 mg Oral tablet - take 2 tablet by ORAL route 2 times per day for 7 days; 14 tablet, Levaquin 500 mg Oral Tablet - take 1 tablet by ORAL route once daily for 7 days; 7 tablet. and Forms are Medication Reconciliation Form, Thank You Letter, Antibiotic Education, Prescription Opioid Use. Follow up: Private Physician; When: 2 - 3 days; Reason: Recheck today's complaints, Continuance of care, Re-evaluation by your physician. Problem is new. Symptoms are unchanged. kav
--- NOTE | 2018-02-26 16:04 | RAD REPORT ---
EXAM DESCRIPTION: VAS - Extremity Venous Uni Ltd - 02/26/2018 2:47 pm CLINICAL HISTORY: Left leg pain and swelling COMPARISON: None. TECHNIQUE: Real-time sonographic evaluation of the left lower extremity deep venous system was perfo rmed. FINDINGS: Good compression and flow augmentation seen in the left common femoral vein. Thrombus is p resent from the proximal superficial femoral vein distally through the popliteal vein to the posterio r tibial vein near the ankle. No mass or abnormal fluid collection in the adjacent soft tissues. Preliminary findings provided at the time of the study. IMPRESSION: Acute deep venous thrombosis left lower extremity from the proximal thigh to the ankle.
[2018-02-26 16:05] LABS: Urine RBC <5 /HPF (NONE SEEN)
[2018-02-26 16:06] LABS: Urine Bacteria NONE SEEN /HPF (NONE SEEN); Urine Culture Reflex Order NOT NEEDED
== END 2018-02-26 16:03 | disposition home or self-care (01) ==
LOC: ER 13:13
DX: I82.4Y2 Acute embolism and thrombosis of unspecified deep veins of left proximal lower extremity (principal); N39.0 Urinary tract infection, site not specified; Z88.2 Allergy status to sulfonamides; M10.9 Gout, unspecified
CPT/HCPCS: 36415; 80053; 81003; 81015; 82550; 85025; 93971; 96361; 96374; 99284; J7030

== ENCOUNTER 2018-02-28 04:45 | Observation (INO) | payer BC ==
--- OUTSIDE RECORDS SUMMARY | 2018-02-28 04:47 | XMS REPORT | Clinical Summary ---
:1985 Author Organization [facility] Address [address] [place] [phone] Phone Care Team Providers Name Role Phone [...] Not on file Implants Implanted Type Area Psychiatric Therapist Device Expiration Model / Identifier Date Serial / Lot Set Stent Injection 6x28cm [id number] - [id number] Stents-Pe [place] 2017 [id number] / Implanted: Qty: 1 on 02/03/2016 by Edgardo Almonte MD [facility] SCI: ONCOLOGY / [id number] Results Not on fileafter 02/27/2017
--- OUTSIDE RECORDS SUMMARY | 2018-02-28 04:47 | XMS REPORT | Clinical Summary ---
:1985 Author Organization [facility] Address [address] [place] [address] Care Team Providers Name Role Phone Asked, [...] days kitIndications: for 90 days. (ankylosing spondylitis) febuxostat (ULORIC) Take 1 tablet 30 tablet [...] Date Status Facility Administered Medication methylPREDNISolone acetate 40 mg IM once 12/12/2017 [...] initial encounter 12/20/2017 Office Visit Rheumatology Annel Rivera Ankylosing spondylitis of lumbosacral region (Primary Dx); [...] Orders Only Rheumatology Annel Rivera, Ankylosing spondylitis of lumbosacral region (Primary Dx) 09/27/2017 Hospital [...] Procedure Pass Radiology 09/18/2017 Orders Only Rheumatology Annel Rivera, Ankylosing spondylitis of lumbosacral [...] (current) use of high-risk medication; Renal insufficiency after 02/27/2017 Family History Medical History Relation Name Comments [...] - Oxygen Saturation 98% 09/27/2017 12:51 PM [facility] Inhaled Oxygen Concentration - - Weight 113 kg (250 lb) 01/20/2018 8:40 AM CDT Height 177.8 cm (5' 10") 01/20/2018 8:40 AM CDT Body Mass Index 35.87 01/20/2018 8:40 AM CDT Plan of Treatment Health Maintenance Due Date Last Done Comments INFLUENZA VACCINE 04/16/2018 Implants Implanted Type Area Pit Recorder Device Expiration Model / Identifier Date Serial / Lot Stent Uretl S-Flx Kwart Retro-Inject 6fr 28cm - [id number] Peripheral or N/A: [employer] 10/20/2018 [id number] / Implanted: 03/06/2016 (Quantity not on file) Biliary Stents N/A / [id number] Results Urinalysis, automated with microscopy (01/20/2018 10:55 [...] 1.04 0.60 - 1.35 mg/dL EGFR Non-Afr. Malian 96 > OR=60 mL/min/1.73m2 EGFR 111 > [...] Left (01/20/2018 8:52 AM) Specimen Performing Laboratory [facility] [address] [place] [address] Narrative tonnis 0. LCEA 23 deg. Cam KAUR alpha angle 77 degrees. No fx. No HO MRI Lower Extremity Joint Wo Contrast Left (12/20/2017 6:32 PM) Specimen Performing Laboratory [facility] [address] [place] [address] Narrative EXAMINATION:MRI LOWER EXTREMITY JOINT WO CONTRAST [...] in the contralateral femoral head partially visualized. [facility]-[id number] Procedure Note Interface, Radiology Results Incoming - 12/20/2017 8:13 PM [...] in the contralateral femoral head partially visualized. [facility]-[id number] XR Sacroiliac Joints 3+ Vw (09/27/2017 2:45 PM) Specimen Performing Laboratory [facility] [address] [place] [address] Narrative EXAMINATION:XR SACROILIAC JOINTS 3VW CLINICAL HISTORY:M45.7 [...] is no evidence of significant osteoarthritic changes. [id number] Procedure Note Interface, Radiology Results Incoming - 09/27/2017 5:24 PM [facility] EXAMINATION: XR SACROILIAC JOINTS 3 VW CLINICAL [...] is no evidence of significant osteoarthritic changes. [facility]-[id number] XR Hip 2-3 View Left (09/27/2017 2:45 PM) Specimen Performing Laboratory [address] [address] Narrative EXAMINATION:XR HIP 2-3 VIEWS LEFT CLINICAL HISTORY:M45.7 Ankylosing spondylitis of lumbosacral region, D72.829 Elevated white blood cell countunspecified, patinet with ASrecent fall from height wiht left hip injury COMPARISON:None. IMPRESSION: There is no evidence of left hip fracture, dislocation, or joint effusion. Bone mineralization is normal. [facility]-[id number] Procedure Note Interface, Radiology Results Incoming - 09/27/2017 3:18 PM [facility] EXAMINATION: XR HIP 2-3 VIEWS LEFT CLINICAL HISTORY: M45.7 Ankylosing spondylitis of lumbosacral region, D72.829 Elevated white blood cell count unspecified, patinet with recent fall from height wiht left hip injury COMPARISON: None. IMPRESSION: There is no evidence of left hip fracture, dislocation, or joint effusion. Bone mineralization is normal. [facility]-[id number] TB GOLD Quantiferon (07/05/2017 11:23 AM) Component [...] IU/mL. For additional information, please refer to [email or web address] (This link is being provided for informational/ [...] D, (D2,D3), LC/MS/MS is recommended: order code 84721 (patients >2yrs). For more information on this test, go to: http://education.[employer]/faq/LHF681 (This link is being provided for informational/educational purposes only.) Specimen Performing Laboratory [facility] Narrative FASTING:YES Thyroid stimulating hormone (07/05/2017 11:23 AM) Component Value Ref Range TSH 2.17 0.40 - 4.50 mIU/L Specimen Performing Laboratory [facility] Narrative FASTING:YES T4, free (07/05/2017 11:23 AM) Component Value Ref Range T4, free 1.2 0.8 - 1.8 ng/dL Specimen Performing Laboratory [facility] Narrative FASTING:YES after 02/27/2017 Insurance Payer Benefit Plan / Group Subscriber ID Type Phone Address BCBS BCBS OUT OF STATE xxxxxxxxxxxx PPO Home: [address] [phone] [place], [address] [place] [phone]
[2018-02-28] MEDS ORDERED: COLCHICINE 0.6 MG TAB ONE ×2 (05:29→06:52)
[2018-02-28] MEDS ORDERED: FENTANYL CITR 100 MCG/2 ML ONE (05:29)
[2018-02-28] MEDS ORDERED: ONDANSETRON 4 MG/2 ML VIAL ONE (05:30)
[2018-02-28] MEDS ORDERED: NA CHLORIDE 0.9% 1,000 ML ONE ×2 (05:30→06:44)
[2018-02-28 06:02] LABS: Absolute Lymphocytes (CBC) 2.7 K/uL (0.7-4.9); Absolute Monocytes 2.3 K/uL (0.1-1.3); Absolute Neutrophil 12.2 K/uL (1.8-8.0); Basophils % 0.6 % (0-1.3); Eosinophils % 2.6 % (0-4.4); MCH 28.9 pg (27.0-35.0); MCV 83.6 fL (80-100); MPV 7.6 fL (7.6-11.3); RBC Red Blood Cell Count 4.91 M/uL (4.33-5.43)
[2018-02-28 06:06] LABS: Potassium 3.6 mEq/L (3.6-5.0); Protime INR 2.54
[2018-02-28 06:12] LABS: Albumin 3.6 g/dL (3.2-5.5); Bilirubin Direct 0.1 mg/dL (0-0.2); Bilirubin Total 0.8 mg/dL (0.3-1.2); Magnesium 1.9 mg/dL (1.8-2.5); Protein, Total 7.8 g/dL (6.0-8.3); Uric Acid 12.2 mg/dL (4.8-8.7)
[2018-02-28 06:14] LABS: CKMB Creatine Kinase MB 0.3 ng/ml (0.3-4.0)
[2018-02-28] MEDS ORDERED: KETOROLAC 30 MG/ML INJ ONE (07:25)
--- NOTE | 2018-02-28 07:55 | EDPHYS ---
Physician Documentation [facility] Name: Seble Potter II Age: 32 yrs Sex: Male : 1985 Arrival Date: 02/28/2018 Time: 04:46 Bed 6 Private MD: ED Physician Esequiel Conley HPI: 02/28 05:07 This 32 yrs old Male presents to ER via Ambulatory with complaints of Leg dov Pain, Leg Swelling. 05:07 The patient presents with decreased range of motion, pain, swelling, tenderness. The dov complaints affect the lateral aspect of left calf, left lateral ankle, lateral aspect of left foot, left medial ankle, medial aspect of left foot, left russell, anterior aspect of left ankle and dorsum of left foot. Context: The problem was sustained at an unknown site. Onset: The symptoms/episode began/occurred 2 day(s) ago. Modifying factors: The symptoms are alleviated by remaining still, the symptoms are aggravated by movement, bending knee. Associated signs and symptoms: The patient has no apparent associated signs or symptoms. Treatment prior to arrival includes: eliqus. Severity of symptoms: At their worst the symptoms were moderate, in the emergency department the symptoms are unchanged. Historical: - Allergies: 04:58 Sulfa (Sulfonamide Antibiotics); tl2 - Home Meds: 04:58 Baclofen Oral [Active]; cimzia [Active]; Methotrexate Sodium Oral [Active]; Eliquis tl2 oral oral [Active]; - PMHx: 04:58 ankylosing spondilitis; Colitis; Kidney stones; Gout; DVT; tl2 - Immunization history:: Adult Immunizations up to date. - Social history:: Smoking status: Patient/guardian denies using tobacco. - Ebola Screening: : No symptoms or risks identified at this time. - Family history:: not pertinent. ROS: 05:07 Constitutional: Negative for fever, chills, and weight loss, Eyes: Negative for injury, dov pain, redness, and discharge, ENT: Negative for injury, pain, and discharge, Neck: Negative for injury, pain, and swelling, Cardiovascular: Negative for chest pain, palpitations, and edema, Respiratory: Negative for shortness of breath, cough, wheezing, and pleuritic chest pain, Abdomen/GI: Negative for abdominal pain, nausea, vomiting, diarrhea, and constipation, Back: Negative for injury and pain, : Negative for injury, bleeding, discharge, and swelling, Skin: Negative for injury, rash, and discoloration, Neuro: Negative for headache, weakness, numbness, tingling, and seizure, Psych: Negative for depression, anxiety, suicide ideation, homicidal ideation, and hallucinations, Allergy/Immunology: Negative for hives, rash, and allergies, Endocrine: Negative for neck swelling, polydipsia, polyuria, polyphagia, and marked weight changes, Hematologic/Lymphatic: Negative for swollen nodes, abnormal bleeding, and unusual bruising. 05:07 MS/extremity: Positive for pain, swelling, tenderness, warmth, of the left leg. Exam: 05:07 Constitutional: This is a well developed, well nourished patient who is awake, alert, dov and in no acute distress. Head/Face: Normocephalic, atraumatic. Eyes: Pupils equal round and reactive to light, extra-ocular motions intact. Lids and lashes normal. Conjunctiva and sclera are non-icteric and not injected. Cornea within normal limits. Periorbital areas with no swelling, redness, or edema. ENT: Nares patent. No nasal discharge, no septal abnormalities noted. Tympanic membranes are normal and external auditory canals are clear. Oropharynx with no redness, swelling, or masses, exudates, or evidence of obstruction, uvula midline. Mucous membranes moist. Neck: Trachea midline, no thyromegaly or masses palpated, and no cervical lymphadenopathy. Supple, full range of motion without nuchal rigidity, or vertebral point tenderness. No Meningismus. Chest/axilla: Normal chest wall appearance and motion. Nontender with no deformity. No lesions are appreciated. Cardiovascular: Regular rate and rhythm with a normal S1 and S2. No gallops, murmurs, or rubs. Normal PMI, no JVD. No pulse deficits. Respiratory: Lungs have equal breath sounds bilaterally, clear to auscultation and percussion. No rales, rhonchi or wheezes noted. No increased work of breathing, no retractions or nasal flaring. Abdomen/GI: Soft, non-tender, with normal bowel sounds. No distension or tympany. No guarding or rebound. No evidence of tenderness throughout. Back: No spinal tenderness. No costovertebral tenderness. Full range of motion. Neuro: Awake and alert, GCS 15, oriented to person, place, time, and situation. Cranial nerves II-XII grossly intact. Motor strength 5/5 in all extremities. Sensory grossly intact. Cerebellar exam normal. Normal gait. Psych: Awake, alert, with orientation to person, place and time. Behavior, mood, and affect are within normal limits. Vital Signs: 04:58 BP 142 / 87; Pulse 107; Resp 18; Temp 97.8; Pulse Ox 97% on R/A; Weight 113.4 kg; tl2 Height 5 ft. 10 in. (177.80 cm); Pain 8/10; 05:38 BP 132 / 92; Pulse 98; Resp 18; Pulse Ox 98% ; tl2 06:15 BP 111 / 66; Pulse 80; Resp 18; Pulse Ox 98% on R/A; tl2 07:29 BP 136 / 94; Pulse 79; Resp 18; Pulse Ox 98% ; sv 08:27 BP 136 / 88; Pulse 79; Resp 18; Pulse Ox 98% ; sv 10:20 BP 127 / 81; Pulse 86; Resp 18; Pulse Ox 99% ; sv 04:58 Body Mass Index 35.87 (113.40 kg, 177.80 cm) tl2 MDM: 04:49 Patient medically screened. [facility] 05:11 Data reviewed: vital signs, nurses notes, lab test result(s), EKG, radiologic studies, [facility] CT scan, doppler, plain films, ultrasound. 02/28 05:02 Order name: Basic Metabolic Panel; Complete Time: 06:38 [facility] 02/28 05:02 Order name: BNP; Complete Time: 06:38 [facility] 02/28 05:02 Order name: CBC with Diff; Complete Time: 06:38 [facility] 02/28 05:02 Order name: Ckmb; Complete Time: 06:38 [facility] 02/28 05:02 Order name: CPK; Complete Time: 06:38 [facility] 02/28 05:02 Order name: LFT's; Complete Time: 06:38 [facility] 02/28 05:02 Order name: Magnesium; Complete Time: 06:38 [facility] 02/28 05:02 Order name: PT-INR; Complete Time: 06:38 [facility] 02/28 05:02 Order name: Ptt, Activated; Complete Time: 06:38 [facility] 02/28 05:02 Order name: Troponin (emerg Dept Use Only); Complete Time: 06:38 [facility] 02/28 05:02 Order name: Uric Acid; Complete Time: 06:38 [facility] 02/28 05:02 Order name: Urine Culture [facility] 02/28 07:02 Order name: Urine Dipstick--Ancillary (enter results) 02/28 07:52 Order name: Blood Culture Adult (2) [facility] 02/28 05:02 Order name: XRAY Chest (1 view) [facility] 02/28 05:02 Order name: EKG; Complete Time: 05:02 [facility] 02/28 05:02 Order name: Cardiac monitoring; Complete Time: 05:25 [facility] 02/28 05:02 Order name: CT Chest For PE Angio [facility] 02/28 05:05 Order name: US Extremity Venous Unilateral Ltd [facility] 02/28 07:58 Order name: Echo w/ Doppler 02/28 08:06 Order name: CONS Physician Consult [facility] 02/28 08:06 Order name: CONS Physician Consult [facility] 02/28 05:02 Order name: EKG - Nurse/Tech; Complete Time: 05:25 [facility] 02/28 05:02 Order name: IV Saline Lock; Complete Time: 05:25 [facility] 02/28 05:02 Order name: Labs collected and sent; Complete Time: 05:25 [facility] 02/28 05:02 Order name: O2 Per Protocol; Complete Time: 05:25 [facility] 02/28 05:02 Order name: O2 Sat Monitoring; Complete Time: 05:25 [facility] 02/28 05:02 Order name: Urine Dipstick-Ancillary (obtain specimen); Complete Time: 06:12 [facility] Administered Medications: 05:37 Drug: NS 0.9% 1000 ml Route: IV; Rate: 1 bolus; Site: right forearm; tl2 05:38 Drug: fentaNYL (PF) 50 mcg Route: IVP; Site: right forearm; tl2 06:12 Follow up: Response: No adverse reaction; Pain is decreased tl2 05:38 Drug: Zofran 4 mg Route: IVP; Site: right forearm; tl2 06:12 Follow up: Response: No adverse reaction; Nausea is decreased tl2 05:38 Drug: Colcrys 1.2 mg Route: PO; tl2 06:12 Follow up: Response: No adverse reaction tl2 07:27 Drug: Colcrys 0.6 mg Route: PO; sv 07:50 Follow up: Response: No adverse reaction sv 07:27 Drug: NS 0.9% 1000 ml Route: IV; Rate: 1 bolus; Site: right antecubital; sv 08:30 Follow up: Response: No adverse reaction; IV Status: Completed infusion; IV Intake: sv 1000ml 07:27 Drug: TORadol 30 mg Route: IVP; Site: right antecubital; sv 07:50 Follow up: Response: No adverse reaction sv 08:42 Drug: Eliquis 5 mg Route: PO; sv 10:30 Follow up: Response: No adverse reaction sv Disposition: 02/28/18 07:55 Hospitalization ordered by Teresa Souza for Observation. Preliminary diagnosis are Acute embolism and thrombosis of other specified deep vein of left lower extremity, Pulmonary embolism with acute cor pulmonale, Elevated white blood cell count, Unspecified kidney failure, Gout. - Bed requested for Telemetry/MedSurg (observation). - Status is Observation. sv - Condition is Stable. - Problem is new. - Symptoms have improved. UTI on Admission? No Signatures: Dispatcher [employer] EDMS Dianelys Mart Stephanie, RN RN sv Anderson, Corey, MD MD cha Knox, Taylor, RN RN tl2 Corrections: (The following items were deleted from the chart) 10:11 07:55 Hospitalization Ordered by Teresa Souza MD for Observation. Preliminary bd diagnosis is Acute embolism and thrombosis of other specified deep vein of left lower extremity; Pulmonary embolism with acute cor pulmonale; Elevated white blood cell count; Unspecified kidney failure; Gout. Bed requested for Telemetry/MedSurg (observation). Status is Observation. Condition is Stable. Problem is new. Symptoms have improved. UTI on Admission? No. dov 11:07 10:11 02/28/2018 07:55 Hospitalization Ordered by Teresa Souza MD for Observation. sv Preliminary diagnosis is Acute embolism and thrombosis of other specified deep vein of left lower extremity; Pulmonary embolism with acute cor pulmonale; Elevated white blood cell count; Unspecified kidney failure; Gout. Bed requested for Telemetry/MedSurg (observation). Status is Observation. Condition is Stable. Problem is new. Symptoms have improved. UTI on Admission? No. bd
--- NOTE | 2018-02-28 07:55 | ER ---
Nurse's Notes [facility] Name: Seble Potter II Age: 32 yrs Sex: Male : 1985 Arrival Date: 02/28/2018 Time: 04:46 Bed 6 Private MD: Diagnosis: Acute embolism and thrombosis of other specified deep vein of left lower extremity;Pulmonary embolism with acute cor pulmonale;Elevated white blood cell count;Unspecified kidney failure;Gout Presentation: 02/28 04:56 Presenting complaint: Patient states: Seen here Saturday and diagnosed with a DVT in tl2 left thigh. Pt states pain has not gotten worse but he has pain and swelling in L foot since being discharged. Transition of care: patient was not received from another setting of care. Onset of symptoms was February 26, 2018. Risk Assessment: Do you want to hurt yourself or someone else? Patient reports no desire to harm self or others. Initial Sepsis Screen: Does the patient meet any 2 criteria? No. Patient's initial sepsis screen is negative. Does the patient have a suspected source of infection? No. Patient's initial sepsis screen is negative. Care prior to arrival: None. 04:56 Method Of Arrival: Ambulatory tl2 04:56 Acuity: KARL 3 tl2 Triage Assessment: 04:58 General: Appears in no apparent distress. uncomfortable, Behavior is calm, cooperative, tl2 appropriate for age. General: No swelling noted in left leg. Pt states pain has decreased in L leg since being discharged on Saturday. . Pain: Complains of pain in left foot Pain does not radiate. Pain currently is 8 out of 10 on a pain scale. Neuro: Level of Consciousness is awake, alert, obeys commands, Oriented to person, place, time, situation. Cardiovascular: Denies chest pain. Respiratory: Airway is patent Respiratory effort is even, unlabored, Respiratory pattern is regular, symmetrical. GI: Reports intolerance of food. : No signs and/or symptoms were reported regarding the genitourinary system. Derm: Skin is pink, warm \T\ dry. Musculoskeletal: Circulation, motion, and sensation intact. Swelling present in left foot. Historical: - Allergies: 04:58 Sulfa (Sulfonamide Antibiotics); tl2 - Home Meds: 04:58 Baclofen Oral [Active]; cimzia [Active]; Methotrexate Sodium Oral [Active]; Eliquis tl2 oral oral [Active]; - PMHx: 04:58 ankylosing spondilitis; Colitis; Kidney stones; Gout; DVT; tl2 - Immunization history:: Adult Immunizations up to date. - Social history:: Smoking status: Patient/guardian denies using tobacco. - Ebola Screening: : No symptoms or risks identified at this time. - Family history:: not pertinent. Screenin:01 Abuse screen: Denies threats or abuse. Nutritional screening: No deficits noted. tl2 Tuberculosis screening: No symptoms or risk factors identified. Fall Risk None identified. Assessment: 05:01 General: see triage assessment. tl2 05:39 Reassessment: Patient appears in no apparent distress at this time. No changes from tl2 previously documented assessment. Patient and/or family updated on plan of care and expected duration. Pain level reassessed. Patient is alert, oriented x 3, equal unlabored respirations, skin warm/dry/pink. 06:15 Reassessment: Patient appears in no apparent distress at this time. Pt appears to be tl2 sleeping, RR even and unlabored. 07:27 Reassessment: Patient appears in no apparent distress at this time. Patient and/or sv family updated on plan of care and expected duration. Pain level reassessed. Patient is alert, oriented x 3, equal unlabored respirations, skin warm/dry/pink. 08:27 Reassessment: Patient appears in no apparent distress at this time. No changes from sv previously documented assessment. Patient and/or family updated on plan of care and expected duration. Pain level reassessed. Patient is alert, oriented x 3, equal unlabored respirations, skin warm/dry/pink. Echo at the bedside. 09:04 Reassessment: Patient appears in no apparent distress at this time. Patient and/or sv family updated on plan of care and expected duration. Pain level reassessed. Patient is alert, oriented x 3, equal unlabored respirations, skin warm/dry/pink. Attempted to get blood cultures, unsuccessful with 1 stick using a 23G needle. Site covered with 2x2 gauze and tape. Inside lab called to help. 10:47 Reassessment: Patient appears in no apparent distress at this time. Patient and/or sv family updated on plan of care and expected duration. Pain level reassessed. Patient is alert, oriented x 3, equal unlabored respirations, skin warm/dry/pink. Vital Signs: 04:58 BP 142 / 87; Pulse 107; Resp 18; Temp 97.8; Pulse Ox 97% on R/A; Weight 113.4 kg; tl2 Height 5 ft. 10 in. (177.80 cm); Pain 8/10; 05:38 BP 132 / 92; Pulse 98; Resp 18; Pulse Ox 98% ; tl2 06:15 BP 111 / 66; Pulse 80; Resp 18; Pulse Ox 98% on R/A; tl2 07:29 BP 136 / 94; Pulse 79; Resp 18; Pulse Ox 98% ; sv 08:27 BP 136 / 88; Pulse 79; Resp 18; Pulse Ox 98% ; sv 10:20 BP 127 / 81; Pulse 86; Resp 18; Pulse Ox 99% ; sv 04:58 Body Mass Index 35.87 (113.40 kg, 177.80 cm) tl2 ED Course: 04:46 Patient arrived in ED. am2 04:49 Esequiel Conley MD is Attending Physician. dov 04:56 Marta Castillo, RN is Primary Nurse. tl2 04:57 Triage completed. tl2 04:58 Arm band placed on right wrist. tl2 05:01 Patient has correct armband on for positive identification. Placed in gown. Bed in low tl2 position. Call light in reach. Side rails up X 1. 05:19 X-ray completed. Portable x-ray completed in exam room. Patient tolerated procedure kw well. 05:19 XRAY Chest (1 view) In Process Unspecified. EDMS 05:25 Head of bed elevated. monitoring manager on. Pulse ox on. NIBP on. rg2 05:25 Initial lab(s) drawn, by ut, sent to lab. EKG done, by ED staff, reviewed by Esequiel Conley MD. Inserted saline lock: 20 gauge in right forearm, using aseptic technique. Blood collected. 06:[address] aa4 07:06 CT Chest For PE Angio In Process Unspecified. EDMS 07:06 CT completed. Patient tolerated procedure well. Patient moved back from CT. kw1 07:18 Ultrasound completed. Patient tolerated well. Patient moved back from ultrasound. aa4 07:27 US Extremity Venous Unilateral Ltd In Process Unspecified. EDMS 07:31 Primary Nurse role handed off by Marta Castillo RN sv 07:31 Franny Elliott RN is Primary Nurse. sv 07:51 Awaiting radiology results. Awaiting re-evaluation by ER provider. sv 07:53 Teresa Souza MD is Hospitalizing Provider. dov 10:31 Echo w/ Doppler Sent. sv 10:47 No provider procedures requiring assistance completed. Patient admitted, IV remains in sv place. intact. Administered Medications: 05:37 Drug: NS 0.9% 1000 ml Route: IV; Rate: 1 bolus; Site: right forearm; tl2 05:38 Drug: fentaNYL (PF) 50 mcg Route: IVP; Site: right forearm; tl2 06:12 Follow up: Response: No adverse reaction; Pain is decreased tl2 05:38 Drug: Zofran 4 mg Route: IVP; Site: right forearm; tl2 06:12 Follow up: Response: No adverse reaction; Nausea is decreased tl2 05:38 Drug: Colcrys 1.2 mg Route: PO; tl2 06:12 Follow up: Response: No adverse reaction tl2 07:27 Drug: Colcrys 0.6 mg Route: PO; sv 07:50 Follow up: Response: No adverse reaction sv 07:27 Drug: NS 0.9% 1000 ml Route: IV; Rate: 1 bolus; Site: right antecubital; sv 08:30 Follow up: Response: No adverse reaction; IV Status: Completed infusion; IV Intake: sv 1000ml 07:27 Drug: TORadol 30 mg Route: IVP; Site: right antecubital; sv 07:50 Follow up: Response: No adverse reaction sv 08:42 Drug: Eliquis 5 mg Route: PO; sv 10:30 Follow up: Response: No adverse reaction sv Intake: 08:30 IV: 1000ml; Total: 1000ml. sv Output: 08:30 Urine: 450ml (Voided); Total: 450ml. sv Outcome: 07:55 Decision to Hospitalize by Provider. dov 10:47 Admitted to Tele accompanied by manda, via stretcher, room 225, with chart, Report sv called to Nhung DANG 10:47 Condition: stable 10:47 Instructed on the need for admit. 11:07 Patient left the ED. sv Signatures: [facility] Deb Duckworth rg2 EarlFranny garcia RN RN sv Anderson, Corey, MD MD cha Frazier, Amanda aa4 Rivka Sal Taylor, RN RN tl2 Paula Zavala am2 Azucena Cifuentes kw1 Corrections: (The following items were deleted from the chart) 10:25 10:20 Pulse 86bpm; Resp 18bpm; Pulse Ox 99%; sv sv
[2018-02-28] MEDS ORDERED: APIXABAN 5 MG TABLET PO ONE (08:15)
--- NOTE | 2018-02-28 08:28 | EKG ---
Test Date: 2018-02-28 Test Time: 05:10:00 [employer] Superintendent: SHIMA MEASUREMENT RESULTS: Intervals: Rate: 101 CT: 162 QRSD: 96 QT: 334 QTc: 433 [place]: P: 11 CT: 162 QRS: 6 T: 26 INTERPRETIVE STATEMENTS: Sinus tachycardia Otherwise normal ECG Compared to ECG 03/22/2001 17:38:00 Sinus rhythm no longer present Electronically Signed On 02-28-18 08:27:28 CDT by Thomas Jay
--- NOTE | 2018-02-28 08:54 | RAD REPORT ---
EXAM DESCRIPTION: Ed Single View02/28/2018 5:21 am CLINICAL HISTORY: Cough COMPARISON: none FINDINGS: The lungs appear clear of acute infiltrate. The heart is upper limits normal size IMPRESSION: No acute abnormalities displayed
--- NOTE | 2018-02-28 08:57 | ECHO ---
HEIGHT: ft in WEIGHT: lb oz DATE OF STUDY: 02/28/[address]: Esequiel Conley MD 2-DIMENSIONAL: YES M.MODE: YES DOPPLER: YES COLOR FLOW: YES TDS: PORTABLE: DEFINITY: BUBBLE STUDY: DIAGNOSIS: LEG SWELLING, LEG PAIN CARDIAC HISTORY: CATHERIZATION: NO SURGERY: NO PROSTHETIC VALVE: NO PACEMAKER: NO MEASUREMENTS (cm) DIASTOLIC (NORMALS) SYSTOLIC (NORMALS) IVSd 1.2 (0.6-1.2) LA Diam 3.6 (1.9-4.0) LVEF 59% LVIDd 5.2 (3.5-5.7) LVIDs 3.5 (2.0-3.5) %FS 31% LVPWd 1.2 (0.6-1.2) Ao Diam 2.6 (2.0-3.7) 2 DIMENSIONAL ASSESSMENT: RIGHT ATRIUM: NORMAL LEFT ATRIUM: NORMAL RIGHT VENTRICLE: NORMAL LEFT VENTRICLE: NORMAL TRICUSPID VALVE: NORMAL MITRAL VALVE: NORMAL PULMONIC VALVE: NORMAL AORTIC VALVE: NORMAL PERICARDIAL EFFUSION: NONE AORTIC ROOT: NORMAL LEFT VENTRICULAR WALL MOTION: NORMAL DOPPLER/COLOR FLOW: PHYSIOLOGIC TRICUSPID REGURGITATION. NORMAL RIGHT VENTRICULAR SYSTOLIC PRESSURE. COMMENTS: NORMAL 2-DIMENSIONAL ECHOCARDIOGRAM WITH DOPPLER. TECHNOLOGIST: JODI VIRAMONTES
--- NOTE | 2018-02-28 09:22 | RAD REPORT ---
EXAM DESCRIPTION: VASExtremity Venous Uni Ltd02/28/2018 7:27 am CLINICAL HISTORY: left leg pain and swelling. COMPARISON: February 26, 2018 FINDINGS: There has been mild improvement in the thrombus within the left superficial femoral vein. No significant change has occurred within the thrombus within the left popliteal and left posterior t ibial veins. The left femoral vein is patent IMPRESSION: Some improvement within the thrombus within the left superficial femoral vein since February 26 No significant change in the occlusive thrombus within the left popliteal and left posterior tibial v eins.
--- NOTE | 2018-02-28 09:29 | RAD REPORT ---
EXAM DESCRIPTION: CT - Chest For Pe Angio - 02/28/2018 8:01 am CLINICAL HISTORY: Chest pain COMPARISON: None. TECHNIQUE: Dynamically enhanced axial 3 mm thick images of the chest were obtained during administra tion of <100> mL Isovue 370 IV contrast. Coronal and oblique reconstruction images were generated and reviewed. Exam utilizes a protocol for optimal evaluation of pulmonary arterial tree.A preliminary r eport was generated by [employer] and reviewed prior to this dictation All CT scans are performed using dose optimization technique as appropriate and may include automated exposure control or mA/KV adjustment according to patient size. FINDINGS: Thrombus within the main pulmonary, right and left main pulmonary arteries is not seen. Ho wever there is thrombus within the lobar, segmental and subsegmental bilateral pulmonary arteries of all lobes. A thoracic aortic aneurysm is not noted. A pleural effusion is not seen. A pericardial effusion is not seen. A lung consolidation is not present. IMPRESSION: Bilateral pulmonary emboli
[2018-02-28] MEDS ORDERED: ACETAMINOPHEN 500 MG TAB PO PRN (11:48)
[2018-02-28] MEDS: ASPIRIN EC 81 MG TAB PO SCH (11:48)
[2018-02-28 12:34] LABS: RPR Titer ND
[2018-02-28 13:42] LABS: Folic Acid, (Folate) > 22.3 ng/ml (>5.21)
--- NOTE | 2018-02-28 14:32 | P.CNS ---
Date of Consult: 02/28/18 Reason for Consult: DVT and PE Chief Complaint: Swelling of the left leg History of Present Illness: Patient is 32 years of age where started having swelling of his left leg came on when as take presented to the emergency room diagnosed with DVT and was discharged home with swelling became progressively worse and was admitted to the hospital he denies any shortness of breath chest pain fever chills no prior history of thromboembolism no risk factors is very active patient has ankylosing spondylitis and seeing a repair service dispatcher only also has some doubt Allergies Sulfa (Sulfonamide Antibiotics) Allergy (Intermediate, Verified 12/02/12 23:08) THROAT SWELLS Home Medications: Baclofen 10 mg PO Q6HP PRN 02/28/18 Febuxostat [Uloric] 80 mg PO DAILY 02/28/18 Methotrexate [Methotrexate*] 17.5 mg PO WMP 02/28/18 traMADol HCL [Ultram*] 50 mg PO Q6HP PRN 02/28/18 - Social History Smoking Status: Never smoker Review of Systems 10-point ROS is otherwise unremarkable Physical Examination Temp Pulse Resp BP Pulse Ox 97.5 F 87 16 147/88 H 97 02/28/18 12:00 02/28/18 12:00 02/28/18 12:00 02/28/18 12:00 02/28/18 12:00 General: Alert, Oriented x3 HEENT: Atraumatic Neck: Supple Respiratory: Clear to auscultation bilaterally Cardiovascular: Regular rate/rhythm, Edema (2+ edema of the left leg compared to the right) Gastrointestinal: Normal bowel sounds, Soft and benign Laboratory Data (last 24 hrs) 02/28/18 05:25: PT 30.2 H, INR 2.54, APTT 39.8 H 02/28/18 05:25: WBC 17.7 H, Hgb 14.2, Hct 41.0, Plt Count 375 02/28/18 05:25: B-Natriuretic Peptide < 10 02/28/18 05:25: Sodium 138, Potassium 3.6, BUN 12, Creatinine 1.48 H, Glucose 146 H, Uric Acid 12.2 H D, Magnesium 1.9, Total Bilirubin 0.8, AST 29, ALT 27, Alkaline Phosphatase 78 - Problems (1) DVT of lower extremity (deep venous thrombosis) Current Visit: Yes Status: Acute Plan: Patient is 32 years of age admitted with acute DVT PE is currently hemodynamically stable oxygenation satisfactory echocardiogram normal no other risk factors patient has history of ankylosing spondylitis scalp is currently on Eliquis patient to continue with full dose of Eliquis 10 mg twice a day for 10 days and 5 mg twice a day he need lifelong anticoagulation with compression stockings possible discharge tomorrow Qualifiers: Laterality: left
[2018-02-28] MEDS ORDERED: PROMETHAZINE 25 MG/ML VIAL IV ONE (19:00)
[2018-02-28] MEDS: APIXABAN 5 MG TABLET PO SCH (20:50)
--- NOTE | 2018-02-28 21:13 | P.HP ---
Certification for Inpatient Patient admitted to: Observation With expected LOS: <2 Midnights Patient will require the following post-hospital care: None Practitioner: I am a practitioner with admitting privileges, knowledge of patient current condition, hospital course, and medical plan of care. Services: Services provided to patient in accordance with Admission requirements found in Title 42 Section 412.3 of the Code of Federal Regulations Patient History Date of Service: 02/28/18 Primary Care Provider: sees Carding Supervisor in [place] Reason for admission: Swelling of the left leg History of Present Illness: Pt was seen in the ED on Saturday of this week and determined to have a DVT in his left leg. Pt discharged on Eliquis. Pt states he began having left foot pain today and returned to the ER. Pt found to have multiple PE with reported mild right heart strain. Pt denies chest pain, shortness of breath, or changes in recent abilities Allergies Sulfa (Sulfonamide Antibiotics) Allergy (Intermediate, Verified 12/02/12 23:08) THROAT SWELLS Home medications list reviewed: Yes Home Medications: Baclofen 10 mg PO Q6HP PRN 02/28/18 Febuxostat [Uloric] 80 mg PO DAILY 02/28/18 Methotrexate [Methotrexate*] 17.5 mg PO WMP 02/28/18 traMADol HCL [Ultram*] 50 mg PO Q6HP PRN 02/28/18 - Past Medical/Surgical History Has patient received pneumonia vaccine in the past: No Diabetic: No -: Gout -: kidney stones -: ankylosing spondylitis -: stent for ureteral calculi Psychosocial/ Personal History: Pt lives at home with 6 yo Daughter, 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 - Family History Father History Unknown: Yes Notes: Grandmother with multiple DVT without apparent cause - Social History Smoking Status: Never smoker Smoking therapy provided: No Alcohol use: No CD- Drugs: No Caffeine use: No Place of Residence: Home Domestic Violence: no Review of Systems Unremarkable General: Malaise Eyes: Unremarkable ENT: Unremarkable Respiratory: Unremarkable Cardiovascular: Edema (left leg greater than right), Unremarkable Gastrointestinal: Nausea, Vomiting Genitourinary: Unremarkable Musculoskeletal: Foot Pain Integumentary: Unremarkable Neurological: Unremarkable Physical Examination - Vital Signs Temperature: 98.5 F Blood Pressure: 131/73 Pulse: 82 Respirations: 17 Pulse Ox (%): 97 - Physical Exam General: Alert, In no apparent distress, Oriented x3 HEENT: Atraumatic, Normocephalic Neck: Supple, 2+ carotid pulse no bruit Respiratory: Clear to auscultation bilaterally, Normal air movement Cardiovascular: Edema (left leg greater than right, left foot) Capillary refill: <2 Seconds Gastrointestinal: Normal bowel sounds, Soft and benign Musculoskeletal: No clubbing Integumentary: No rashes Neurological: Normal gait, Normal speech, Normal strength at 5/5 x4 extr Lymphatics: No axilla or inguinal lymphadenopathy External genitalia: Deferred Rectal: Deferred - Studies Laboratory Data (last 24 hrs) 02/28/18 05:25: PT 30.2 H, INR 2.54, APTT 39.8 H 02/28/18 05:25: WBC 17.7 H, Hgb 14.2, Hct 41.0, Plt Count 375 02/28/18 05:25: B-Natriuretic Peptide < 10 02/28/18 05:25: Sodium 138, Potassium 3.6, BUN 12, Creatinine 1.48 H, Glucose 146 H, Uric Acid 12.2 H D, Magnesium 1.9, Total Bilirubin 0.8, AST 29, ALT 27, Alkaline Phosphatase 78 Assessment and Plan - Problems (Diagnosis) (1) Pulmonary embolism Current Visit: Yes Status: Acute Plan: Continue Eliquis as per Dr. Quinn recommendations Qualifiers: Chronicity: acute (2) Ankylosing spondylitis Current Visit: No Status: Acute (3) Gout Current Visit: Yes Status: Acute Plan: Pain medications prn Qualifiers: Gout etiology: unspecified cause (4) DVT of lower extremity (deep venous thrombosis) Current Visit: Yes Status: Acute Plan: Continue Eliquis as Dr. Quinn's recommendation Qualifiers: Laterality: left (5) Vomiting Current Visit: Yes Status: Acute Plan: Phenergan as needed for N/V - Advance Directives Does patient have a Living Will: No Does patient have a Durable POA for Healthcare: No
[2018-03-01 02:56] LABS: RPR (Rapid Plasma Reagin) NON-REACT (NON-REACT)
[2018-03-01 05:22] LABS: Absolute Lymphocytes (CBC) 2.5 K/uL (0.7-4.9); Absolute Monocytes 1.4 K/uL (0.1-1.3); Absolute Neutrophil 5.6 K/uL (1.8-8.0); Basophils % 1.2 % (0-1.3); Hematocrit 37.7 % (39.6-49.0); Lymphocytes % 24.1 % (15.3-44.8); MCH 29.1 pg (27.0-35.0); MCV 84.1 fL (80-100); MPV 7.1 fL (7.6-11.3); Monocytes % 13.5 % (3.3-12.3); RBC Red Blood Cell Count 4.49 M/uL (4.33-5.43)
[2018-03-01 05:38] LABS: Potassium 3.8 mEq/L (3.6-5.0)
[2018-03-01] MEDS: ASPIRIN EC 81 MG TAB PO SCH (09:44)
[2018-03-01] MEDS: APIXABAN 5 MG TABLET PO SCH (09:44)
--- NOTE | 2018-03-01 10:40 | P.DS ---
Admission Date: 02/28/18 Discharge Date: 03/01/18 Primary Care Provider: sees Cardiac Technologist in [place] Disposition: ROUTINE DISCHARGE Discharge Condition: FAIR Reason for Admission: Swelling of the left leg - Problems (1) DVT of lower extremity (deep venous thrombosis) Current Visit: Yes Status: Acute Qualifiers: Affected thrombotic vein of extremity: femoral Laterality: left Brief History of Present Illness: Patient is 32 years of age where started having swelling of his left leg came on when as take presented to the emergency room diagnosed with DVT and was discharged home with swelling became progressively worse and was admitted to the hospital he denies any shortness of breath chest pain fever chills no prior history of thromboembolism no risk factors is very active patient has ankylosing spondylitis and seeing a job molder only also has some doubt Hospital Course: Patient did well during the course of the stay his echocardiogram normal normal blood pressure oxygen at the time of discharge he was doing well denied any shortness of breath or chest pain physical examination and normal lungs normal heart sounds swelling the same improving patient was alert oriented responsive he was instructed to take Eliquis lifelong Eliquis 10 mg twice a day for 7 days then 5 mg twice a day indefinitely. extensive PE workup was ordered by air the nurse practitioner at discharge creatinine 1.27 which was an improvement Vital Signs/Physical Exam: Temp Pulse Resp BP Pulse Ox 97.9 F 92 H 18 139/74 97 03/01/18 08:00 03/01/18 08:00 03/01/18 08:00 03/01/18 08:00 03/01/18 08:00 Laboratory Data at Discharge: WBC 10.2 K/uL (4.3-10.9) D 03/01/18 04:57 Hgb 13.1 g/dL (13.6-17.9) L 03/01/18 04:57 Hct 37.7 % (39.6-49.0) L 03/01/18 04:57 Plt Count 343 K/uL (152-406) 03/01/18 04:57 PT 30.2 SECONDS (9.5-12.5) H 02/28/18 05:25 INR 2.54 02/28/18 05:25 APTT 39.8 SECONDS (24.3-36.9) H 02/28/18 05:25 Sodium 143 mEq/L (135-145) 03/01/18 04:57 Potassium 3.8 mEq/L (3.6-5.0) 03/01/18 04:57 BUN 11 mg/dL (6-20) 03/01/18 04:57 Creatinine 1.27 mg/dL (0.61-1.24) H 03/01/18 04:57 Glucose 109 mg/dL (65-120) 03/01/18 04:57 Uric Acid 12.2 mg/dL (4.8-8.7) H D 02/28/18 05:25 Magnesium 1.9 mg/dL (1.8-2.5) 02/28/18 05:25 Total Bilirubin 0.8 mg/dL (0.3-1.2) 02/28/18 05:25 AST 29 IU/L (10-42) 02/28/18 05:25 ALT 27 IU/L (10-60) 02/28/18 05:25 Alkaline Phosphatase 78 IU/L (42-121) 02/28/18 05:25 Troponin I < 0.03 ng/mL (<0.03) 02/28/18 16:17 B-Natriuretic Peptide < 10 pg/ml (<=100) 02/28/18 05:25 Home Medications: Baclofen 10 mg PO Q6HP PRN 02/28/18 Febuxostat [Uloric] 80 mg PO DAILY 02/28/18 Methotrexate [Methotrexate*] 17.5 mg PO WMP 02/28/18 traMADol HCL [Ultram*] 50 mg PO Q6HP PRN 02/28/18 Apixaban [Eliquis] 5 mg PO BID 30 Days #30 tablet 03/01/18 New Medications: Apixaban [Eliquis] 5 mg PO BID 30 Days #30 tablet Patient Discharge Instructions: Patient can resume regular activities on Saturday the Eliquis 10 mg twice a day for a total of 7 days and then 5 mg twice a day indefinitely and less instructed by a physician to do so. Please give a printout on DVT and pulmonary embolism print out for Eliquis instruct patient he is to remain on Eliquis lifelong until discontinued by a physician Diet: Regular Activity: Ad gerardo Followup: Eugene Quinn MD [ACTIVE - CAN ADMIT] -
[2018-03-02 14:17] LABS: Protein C Antigen 119 % (70-140)
[2018-03-04 13:45] LABS: Prothrombin Gene Analysis Test REPORT
[2018-03-04 16:17] LABS: P-ANCA Anti-Myeloperoxidase Ab <1.0 AI (<1.0)
[2018-03-04 21:55] LABS: Alpha-1-Globulins 0.6 g/dL (0.2-0.3); Alpha-2-Globulins 1.2 g/dL (0.5-0.9); Gamma Globulins 0.8 g/dL (0.8-1.7); INTERPRETATION REPORT
== END 2018-03-01 16:20 | disposition home or self-care (01) ==
LOC: ER 04:45 → ERHOLD 07:56 → 2ND 10:47
PROVIDERS: ADMIT Family Medicine; ATTEND Internal Medicine Sleep Medicine
DX: I82.412 Acute embolism and thrombosis of left femoral vein (principal); I26.99 Other pulmonary embolism without acute cor pulmonale; M45.9 Ankylosing spondylitis of unspecified sites in spine; M10.9 Gout, unspecified; Z88.2 Allergy status to sulfonamides
CPT/HCPCS: 36415; 71045; 71275; 80048; 80076; 81240; 81241; 82306; 82550; 82553; 82607; 82746; 83090; 83735; 83880; 84165; 84484; 84550; 85025; 85300; 85302; 85305; 85306; 85610; 85730; 86021; 86147; 86592; 87040; 87086; 87088; 93005; 93306; 93971; 99285; G0378; J2405; J2550; J3010; J7030; Q9967

== ENCOUNTER 2018-10-06 22:35 | Emergency (ER) | payer BC ==
--- OUTSIDE RECORDS SUMMARY | 2018-10-06 22:37 | XMS REPORT | Clinical Summary ---
:1985 Author Organization [facility] Address [address] [place] [address] Care Team Providers Name Role Phone Asked, No Pcp Primary Care Provider Unavailable Allergies Active Allergy Reactions Severity Noted Date Comments Sulfa (Sulfonamide Antibiotics) 02/23/2016 THROAT SWELL Medications Medication Sig Dispensed Refills Start End Date Status Date baclofen TAKE 1 TO 2 60 tablet 2 Active (LIORESAL) 10 MG TABLETS BY MOUTH 8 tabletIndications: AT BEDTIME FOR Ankylosing MUSCLE SPASMS spondylitis of lumbosacral region (HCC), Encounter for long-term (current) use of high-risk medication, Hyperuricemia, Fatigue, unspecified type, Renal insufficiency, Acute idiopathic gout of foot, unspecified laterality, Encounter for monitoring of methotrexate therapy, Leukocytosis, unspecified type febuxostat Take 1 tablet (80 30 tablet 5 01/21/20 Active (ULORIC) 80 mg mg total) by mouth 8 19 tabletIndications: daily for 180 Chronic idiopathic days. gout involving toe of left foot without tophus CIMZIA 400 mg/2 mL INJECT 400MG (2 3 kit 0 01/02/20 Active (200 mg/mL x 2) SYRINGES) 9 19 syringe kit SUBCUTANEOUSLY EVERY 4 WEEKS DIRECTED DULoxetine Take 1 capsule (60 30 capsule 2 12/21/19 Discontinued (CYMBALTA) 60 MG mg total) by mouth 8 18 capsuleIndications once daily. : Ankylosing spondylitis of lumbosacral region (HCC), Leukocytosis, unspecified type, Renal insufficiency, Hyperuricemia folic acid Take 2 tablets (2 60 tablet 11 09/18/19 (FOLVITE) 1 MG mg total) by mouth 8 19 tabletIndications: daily. Ankylosing spondylitis of lumbosacral region (HCC), Encounter for long-term (current) use of high-risk medication, Hyperuricemia, Acute idiopathic gout of foot, unspecified laterality, Encounter for monitoring of methotrexate therapy, Leukocytosis, unspecified type, Renal insufficiency sertraline Take 1 tablet (50 30 tablet 11 09/18/19 (ZOLOFT) 50 MG mg total) by mouth 8 19 tabletIndications: daily. Acute idiopathic gout of foot, unspecified laterality, Hyperuricemia, Ankylosing spondylitis of lumbosacral region (HCC), Encounter for long-term (current) use of high-risk medication, Renal insufficiency, Depressed mood, Encounter for monitoring of methotrexate therapy, Leukocytosis, unspecified type, Obesity (BMI 30-39.9) febuxostat Take 1 tablet (80 90 tablet 1 12/18/19 (ULORIC) 80 mg mg total) by mouth 8 18 tabletIndications: daily for 90 days. Ankylosing spondylitis of lumbosacral region (HCC), Leukocytosis, unspecified type, Renal insufficiency, Hyperuricemia methotrexate 2.5 Take 8 tablets (20 32 tablet 2 12/21/19 Discontinued MG mg total) by mouth 8 18 tabletIndications: once a week for 90 Ankylosing days. spondylitis of lumbosacral region (HCC), Encounter for long-term (current) use of high-risk medication, Leukocytosis, unspecified type, Renal insufficiency, Hyperuricemia, Encounter for methotrexate monitoring, Fall (on) (from) other stairs and steps, initial encounter, Hip injury, left, initial encounter clobetasol Apply topically 2 30 g 0 10/11/19 (TEMOVATE) 0.05 % (two) times a day 8 18 ointmentIndication for 14 days. s: Ankylosing spondylitis of lumbosacral region (HCC), Leukocytosis, unspecified type, Encounter for long-term (current) use of high-risk medication, Hyperuricemia, Encounter for methotrexate monitoring, Fall (on) (from) other stairs and steps, initial encounter, Hip injury, left, initial encounter certolizumab pegol Inject 1 mL (200 6 mL 0 12/27/19 (CIMZIA) 400 mg/2 mg total) under 8 18 mL (200 mg/mL x 2) the skin every 14 syringe (fourteen) days kitIndications: for 90 days. Ankylosing spondylitis of lumbosacral region (HCC) acetaminophen-code Take 1-2 tablets 150 tablet 0 11/06/19 ine (TYLENOL WITH by mouth every 8 8 18 CODEINE #3) 300-30 (eight) hours as mg per needed for tabletIndications: moderate pain for Ankylosing up to 30 days. spondylitis of lumbosacral region (HCC) febuxostat Take 80 mg by 0 12/21/19 Discontinued (ULORIC) 80 mg mouth daily. 18 tablet methotrexate 2.5 Take 8 tablets (20 32 tablet 2 03/20/20 MG mg total) by mouth 8 18 tabletIndications: once a week for 90 Ankylosing days. 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 predniSONE Take 1-2 tablets 60 tablet 0 08/21/20 (DELTASONE) 5 mg (5-10 mg total) by 8 18 tablet mouth daily as needed (joint pain) for up to 30 days. 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 12/20/2017 Fall (on) (from) other stairs and steps, initial encounter 09/27/2017 Hip injury, left, initial encounter 09/27/2017 Rash and nonspecific skin eruption 09/27/2017 Depressed mood 02/26/2017 (ankylosing spondylitis) 06/29/2016 Encounter for long-term (current) use of high-risk medication 06/29/2016 Hyperuricemia 06/29/2016 Nephrolithiasis 06/29/2016 Renal insufficiency 06/29/2016 Fatigue 06/29/2016 Obesity (BMI 30-39.9) 06/29/2016 Acute right flank pain 04/28/2016 Calculus of urinary bladder 04/28/2016 Leukocytosis 04/28/2016 Resolved Problems Problem Noted Date Resolved Date Encounter for methotrexate monitoring 09/27/2017 07/22/2018 Encounters Date Type Specialty Care Team Description 10/03/2018 Refill Rheumatology Annel Rivera MD 07/22/2018 Hospital Encounter Radiology Annel Rivera Ankylosing spondylaracely of lumbosacral region ([facility]); 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; Rash and nonspecific skin eruption; Leukocytosis, unspecified type; Renal insufficiency; Encounter for long-term (current) use of high-risk medication; Hyperuricemia; Thoracic radiculopathy 07/22/2018 Office Visit Rheumatology Annel Rivera Ankylosing spondylaracely of lumbosacral region ([facility]) (Primary Dx); 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; Rash and nonspecific skin eruption; Leukocytosis, unspecified type; Calculus of urinary bladder; Renal insufficiency; Encounter for long-term (current) use of high-risk medication; Hyperuricemia; Obesity (BMI 30-39.9); Thoracic radiculopathy; Other pulmonary embolism without acute cor pulmonale, unspecified chronicity ([facility]) 06/16/2018 Orders Only Rheumatology Annel Rivera Ankylosing spondylaracely MCKEON of lumbosacral region ([facility]) (Primary Dx) 06/12/2018 Refill Rheumatology Annel Rivera MD 03/05/2018 Refill Rheumatology Annel Rivera MD 02/03/2018 Documentation Rheumatology maryam Santiago MA 01/20/2018 [...] initial encounter 12/20/2017 Office Visit Rheumatology Annel Rievra Ankylosing spondylitis of lumbosacral region (Primary Dx); Nephrolithiasis; Renal insufficiency; Obesity (BMI 30-39.9); 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; Encounter for methotrexate monitoring; Hyperuricemia; Fatigue, unspecified type; Fall (on) (from) other stairs and steps, initial encounter; Encounter for long-term (current) use of high-risk medication; Leukocytosis, unspecified type; Hip injury, left, initial encounter 12/20/2017 Orders Only Rheumatology Jack, Ankylosing spondylitis DAT Miles of multiple sites in spine (Primary Dx) 12/12/2017 Clinical Support Rheumatology 12/12/2017 Orders Only Rheumatology Jack, Acute idiopathic gout, DAT Miles unspecified site (Primary Dx) 10/07/2017 Orders Only Rheumatology Annel Rivera Ankylosing spondylitis of lumbosacral region (Primary Dx) after 10/05/2017 Family History Medical History Relation Name Comments [...] Assigned at Date Recorded Not on file Job Start Date Occupation Industry Not on file Not on file Not on file Travel History Travel Start Travel End No recent travel history available. Last Filed Vital Signs Vital Sign Reading Time Taken Blood Pressure 171/109 07/22/2018 10:10 AM OUTSIDE SALESMAN Pulse 93 07/22/2018 10:10 AM OUTSIDE SALESMAN Temperature 36.8 C (98.2 F) 07/22/2018 10:10 AM OUTSIDE SALESMAN Respiratory Rate - - Oxygen Saturation - - Inhaled Oxygen Concentration - - Weight 117 kg (258 lb 6.4 oz) 07/22/2018 10:10 AM OUTSIDE SALESMAN Height 177.8 cm (5' 10") 07/22/2018 10:10 AM OUTSIDE SALESMAN Body Mass Index 37.08 07/22/2018 10:10 AM OUTSIDE SALESMAN Plan of Treatment Date Type Specialty Care Team Description 10/28/2018 Office Visit Rheumatology Annel Rivera MD [address] [address] Health Maintenance Due Date Last Done Comments INFLUENZA VACCINE 04/16/2018 Implants Implanted Type Area Stem Lead Former Device Shelf Model / Identifier Expiration Serial / Date Lot Stent Uretl S-Flx Kwart Retro-Inject 6fr 28cm - [id number] Peripheral or N/A: [employer] 10/20/2018 [id number] / Implanted: 03/06/2016 (Quantity not on file) Biliary Stents N/A / [id number] Procedures Procedure Name Priority Date/Time Associated Diagnosis Comments XR THORACIC SPINE 3 Routine 07/22/2018 1:09 Ankylosing Results for this VW PM OUTSIDE SALESMAN spondylitis of procedure are in lumbosacral region the results (HCC) section. 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 MRI LOWER EXTREMITY Routine 12/20/2017 6:32 Ankylosing Results for this JOINT WO CONTRAST PM CDT spondylitis of procedure are in LEFT lumbosacral region the results Leukocytosis, section. unspecified type Encounter for long-term (current) use of high-risk medication Hyperuricemia Encounter for methotrexate monitoring Fall (on) (from) other stairs and steps, initial encounter Hip injury, left, initial encounter after 10/05/2017 Results XR Thoracic Spine 3 Vw (07/22/2018 1:09 PM OUTSIDE SALESMAN) Narrative Performed At EXAMINATION: XR THORACIC SPINE 3 VW [facility] CLINICAL HISTORY: M45.7 Ankylosing spondylitis of lumbosacral region, M1A.0720 Idiopathic chronic goutleft ankle and footwithout tophus (tophi), T spine radiculopathy h o COMPARISON:None IMPRESSION: Minimal levoscoliosis of the mid to upper thoracic spine. No displaced fracture. No subluxation. No suspicious osseous abnormalities. [id number] Procedure Note Hm Interface, Radiology Results Incoming - 07/22/2018 2:28 PM OUTSIDE SALESMAN EXAMINATION: XR THORACIC SPINE 3 VW CLINICAL HISTORY: M45.7 Ankylosing spondylitis of lumbosacral region, M1A.0720 Idiopathic chronic gout left ankle and foot without tophus (tophi), T spine radiculopathy h o COMPARISON: None IMPRESSION: Minimal levoscoliosis of the mid to upper thoracic spine. No displaced fracture. No subluxation. No suspicious osseous abnormalities. [id number] Performing Organization Address City/State/Zipcode Phone Number [facility] [address] [place] [address] Vitamin D 25 hydroxy level (07/22/2018 11:57 AM OUTSIDE SALESMAN) Vitamin D, 25-hydroxy 53 30 - 100 ng/mL [facility] Comment: [place] Vitamin D Status 25-OH Vitamin D: Deficiency:<20 ng/mL Insufficiency: 20 - 29 ng/mL Optimal: > or=30 ng/mL For 25-OH Vitamin D testing on patients on D2-supplementation and patients for whom quantitation of D2 and D3 fractions is required, the QuestAssureD(TM) 25-OH VIT D, (D2,D3), LC/MS/MS is recommended: order code 93310 (patients >2yrs). For more information on this test, go to: http://education.Rypple/faq/GOH459 (This link is being provided for informational/educational purposes only.) Specimen Blood Narrative Performed At FASTING:YES [facility] FASTING: YES Resulting Agency Comment Performing Organization Information: Site ID: [id number] Name: [facility] Address: [address] [place] [phone] Director: Beryl Main Performing Organization Address [facility] Servicescode Phone Number [facility] [address] [address] Urinalysis, automated with microscopy (07/22/2018 11:57 AM OUTSIDE SALESMAN)Only the most recent of2 resultswithin the time period is included. Color, UA YELLOW YELLOW [facility] [place] Appearance CLEAR CLEAR [facility] [place] Specific gravity, urine 1.011 1.001 - 1.035 [facility] [place] pH, urine 5.5 5.0 - 8.0 [facility] [place] Glucose, urine NEGATIVE NEGATIVE [facility] [place] Bilirubin, UA NEGATIVE NEGATIVE [facility] [place] Ketones, UA NEGATIVE NEGATIVE [facility] [place] Occult blood, urine NEGATIVE NEGATIVE [facility] [place] Protein, UA NEGATIVE NEGATIVE [facility] [place] Nitrite, UA NEGATIVE NEGATIVE [facility] [place] Leukocyte esterase, UA NEGATIVE NEGATIVE [facility] [place] WBC, UA NONE SEEN < OR=5 /HPF [facility] [place] RBC, UA NONE SEEN < OR=2 /HPF [facility] [place] Squamous epithelial cells, UA NONE SEEN < OR=5 /HPF [facility] [place] Bacteria, UA NONE SEEN NONE SEEN /HPF [facility] [place] Hyaline casts, UA NONE SEEN NONE SEEN /LPF [facility] [place] Specimen Urine Narrative Performed At FASTING:YES [facility] FASTING: YES Resulting Agency Comment Performing Organization Information: Site ID: [id number] Name: [facility] Address: [address] [place] [phone] Director: Beryl Main Performing Organization Address [facility]/Zipcode Phone Number [facility] [address] [address] Sedimentation rate (07/22/2018 11:57 AM OUTSIDE SALESMAN)Only the most recent of2 resultswithin the time period is included. Sedimentation rate 6 < OR=15 mm/h [facility] [place] Specimen Blood Narrative Performed At FASTING:YES [facility] FASTING: YES Resulting Agency Comment Performing Organization Information: Site ID: [id number] Name: [facility] Address: [address] [place] [phone] Director: Beryl Main Performing Organization Address City/State/Zipcode Phone Number JOYCE [facility] [place] [address] [place] [address] [phone] CBC with platelet and differential (07/22/2018 11:57 AM OUTSIDE SALESMAN)Only the most recent of2 resultswithin the time period is included. WBC 13.1 (H) 3.8 - 10.8 Thousand/uL [facility] RBC 6.06 (H) 4.20 - 5.80 Million/uL [facility] HGB 16.9 13.2 - 17.1 g/dL [facility] HCT 49.5 38.5 - 50.0 % [facility] MCV 81.7 80.0 - 100.0 fL [facility] [place] MCH 27.9 27.0 - 33.0 pg [facility] [place] MCHC 34.1 32.0 - 36.0 g/dL [facility] [place] RDW 14.2 11.0 - 15.0 % [facility] [place] Platelet count 356 140 - 400 Thousand/uL [facility] MPV 9.8 7.5 - 12.5 fL [facility] [place] Neutrophils, absolute 8,266 (H) 1,500 - 7,800 cells/uL [facility] [place] Lymphocytes, absolute 3,354 850 - 3,900 cells/uL [facility] [place] Monocytes, absolute 983 (H) 200 - 950 cells/uL [facility] [place] Eosinophils, absolute 419 15 - 500 cells/uL [facility] [place] Basophils, absolute 79 0 - 200 cells/uL [facility] [place] Neutrophils 63.1 % [facility] [place] Lymphocytes 25.6 % [facility] [place] Monocytes 7.5 % [facility] [place] Eosinophils 3.2 % [facility] [place] Basophils + RC 0.6 % [facility] [place] Specimen Blood Narrative Performed At FASTING:YES [facility] FASTING: YES Resulting Agency Comment Performing Organization Information: Site ID: [id number] Name: [facility] Address: [address] [place] [phone] Director: Beryl Main Performing Organization Address [facility] Servicescode Phone Number [facility] [address] [address] C-reactive protein (07/22/2018 11:57 AM OUTSIDE SALESMAN)Only the most recent of2 resultswithin the time period is included. CRP 16.5 (H) <8.0 mg/L [facility] [place] Specimen Blood Narrative Performed At FASTING:YES QUEST FASTING: YES Resulting Agency Comment Performing Organization Information: Site ID: [id number] Name: [facility] Address: [address] [place] [id number] Director: Beryl Main Performing Organization Address [facility] [place] [address] Uric acid level (07/22/2018 11:57 AM OUTSIDE SALESMAN)Only the most recent of2 resultswithin the time period is included. Uric acid 14.9 (H) 4.0 - 8.0 mg/dL [facility] [place] Comment: Verified by repeat analysis. Therapeutic target for gout patients: <6.0 mg/dL Specimen Blood Narrative Performed At FASTING:YES QUEST FASTING: YES Resulting Agency Comment Performing Organization Information: Site ID: [id number] Name: [facility] Address: [address] [place] [phone] Director: Beryl Main Performing Organization Address [facility] [place] [address] Creatine kinase, total (CPK) (07/22/2018 11:57 AM OUTSIDE SALESMAN) Creatine kinase 47 44 - 196 U/L [facility] [place] Specimen Blood Narrative Performed At FASTING:YES QUEST FASTING: YES Resulting Agency Comment Performing Organization Information: Site ID: [id number] Name: [facility] Address: [address] [place] [id number] Director: Beryl Main Performing Organization Address [facility] Phone Number [facility] [place] [phone] Comprehensive metabolic panel (07/22/2018 11:57 AM OUTSIDE SALESMAN)Only the most recent of2 resultswithin the time period is included. Glucose 70 65 - 99 mg/dL [facility] Comment: [place] Fasting reference interval BUN, whole blood 13 7 - 25 mg/dL [facility] [place] Creatinine 1.08 0.60 - 1.35 mg/dL [facility] [place] EGFR Non-Afr. Maldivian 91 > OR=60 [facility] mL/min/1.73m2 [place] EGFR 105 > OR=60 [facility] mL/min/1.73m2 [place] BUN/creatinine ratio NOT APPLICABLE 6 - 22 (calc) [facility] [place] Sodium 139 135 - 146 mmol/L [facility] [place] Potassium 4.2 3.5 - 5.3 mmol/L [facility] [place] Chloride 102 98 - 110 mmol/L [facility] [place] CO2 23 20 - 32 mmol/L [facility] [place] Calcium 10.4 (H) 8.6 - 10.3 mg/dL [facility] [place] Protein 8.0 6.1 - 8.1 g/dL [facility] [place] Albumin, S 4.5 3.6 - 5.1 g/dL [facility] [place] Globulin, total 3.5 1.9 - 3.7 g/dL [facility] (calc) [place] Albumin/globulin ratio 1.3 1.0 - 2.5 (calc) [facility] [place] Total bilirubin 0.4 0.2 - 1.2 mg/dL [facility] [place] Alkaline phosphatase 90 40 - 115 U/L [facility] [place] AST 13 10 - 40 U/L [facility] [place] ALT 10 9 - 46 U/L [facility] [place] Specimen Blood Narrative Performed At FASTING:YES QUEST FASTING: YES Resulting Agency Comment Performing Organization Information: Site ID: [id number] Name: [facility] Address: [address] [place] [id number] Director: Beryl Main Performing Organization Address [facility] Phone Number [facility] [address] [address] XR Hip 4 Views Left (01/20/2018 8:52 AM CDT) Narrative Performed At tonnis 0. LCEA 23 deg. Cam KAUR alpha angle 77 degrees. No fx. No HO [facility] Performing Organization Address City/[facility]/Zipcode Phone Number [facility] [address] [place] [address] MRI Lower Extremity Joint Wo Contrast Left (12/20/2017 6:32 PM CDT) Narrative Performed At EXAMINATION:MRI LOWER EXTREMITY JOINT WO CONTRAST LEFT [facility] CLINICAL HISTORY:M45.7 Ankylosing spondylitis of lumbosacral region, D72.829 Elevated white blood cell countunspecified, patinet with recent fall from height wiht left hip injury TECHNIQUE: Multiplanar, multisequence MR imaging examination of the left hip obtained without contrast. COMPARISON:X-ray, 09/27/2017 IMPRESSION: 1.Osseous [...] femoral head partially visualized. There is no definit e cortical collapse, though there is mild flattening [...] in the contralateral femoral head partially visualized. [facility]-[id number] Procedure Note Interface, Radiology Results Incoming - [...] in the contralateral femoral head partially visualized. [facility]-[id number] Performing Organization Address City/State/Zipcode Phone Number HM [facility] [address] [place] [address] after 10/05/2017 Insurance Payer Benefit Plan / Group Subscriber ID Type Phone Address BCBS BS OUT OF STATE xxxxxxxxxxxx PPO Advance Directives Patient has advance care planning documents on file. For more information, please contact:Toney Gilmore[address] [place] [phone]
--- OUTSIDE RECORDS SUMMARY | 2018-10-06 22:38 | XMS REPORT | Clinical Summary ---
:1985 Author Organization [facility] Address [address] [place] [address] Care Team Providers Name Role Phone Ghada Primary Care Provider Allergies Active Allergy Reactions Severity Noted Date Comments Sulfa (Sulfonamide Antibiotics) Anaphylaxis High 10/12/2015 Medications No known medications Active Problems Problem [...] travel history available. Last Filed Vital Signs Not on file Plan of Treatment Not on file Implants Implanted Type Area Steam And Power Supervisor Device Shelf Model / Identifier Expiration Serial / Lot Date Set Stent Injection 6x28cm 185-615 - [id number] Stents-Pe [place] 2017 [id number] / Implanted: Qty: 1 on 02/03/2016 by Edgardo Almonte MD [facility] SCI: ONCOLOGY / [id number] Results Not on fileafter 10/05/2017 Insurance Payer Benefit Plan / Group Subscriber ID Type Phone Address HUMANA - MGD CARE HUMANA HMO POS xxxxxxxxx HMO/POS
[2018-10-06] MEDS ORDERED: KETOROLAC 30 MG/ML INJ ONE (22:59)
--- NOTE | 2018-10-07 04:03 | ER ---
Nurse's Notes [facility] Name: Seble Potter II Age: 33 yrs Sex: Male : 1985 Arrival Date: 10/06/2018 Time: 22:38 Bed 23 Private MD: Diagnosis: Monoarthritis, not elsewhere classified, right ankle and foot Presentation: 10/06 22:48 Presenting complaint: Patient states: right foot pain, throbbing since last night. ak1 Transition of care: patient was not received from another setting of care. Onset of symptoms was October 06, 2018. Risk Assessment: Do you want to hurt yourself or someone else? Patient reports no desire to harm self or others. Initial Sepsis Screen: Does the patient meet any 2 criteria? No. Patient's initial sepsis screen is negative. Does the patient have a suspected source of infection? No. Patient's initial sepsis screen is negative. Care prior to arrival: None. 22:48 Method Of Arrival: Wheelchair ak1 22:48 Acuity: KARL 4 ak1 Triage Assessment: 22:51 General: Appears in no apparent distress. Behavior is calm, cooperative. Pain: ak1 Complains of pain in right foot Quality of pain is described as throbbing. Historical: - Allergies: 22:51 Sulfa (Sulfonamide Antibiotics); ak1 - Home Meds: 22:51 Baclofen Oral [Active]; Methotrexate Sodium Oral [Active]; cimzia [Active]; ak1 - PMHx: 22:51 ankylosing spondilitis; Colitis; Gout; Kidney stones; DVT; ak1 - Immunization history:: Adult Immunizations unknown. - Social history:: Smoking status: Patient/guardian denies using tobacco, Patient/guardian denies using alcohol, street drugs. - Ebola Screening: : No symptoms or risks identified at this time. Screenin:54 Abuse screen: Denies threats or abuse. Denies injuries from another. Nutritional rv screening: No deficits noted. Tuberculosis screening: No symptoms or risk factors identified. Fall Risk None identified. Assessment: 22:53 General: Appears in no apparent distress. uncomfortable, Behavior is calm, cooperative. rv Pain: Complains of pain in right foot. Pain: Pain currently is 4 out of 10 on a pain scale. Neuro: Cardiovascular: Capillary refill < 3 seconds. Respiratory: Airway is patent. GI: No signs and/or symptoms were reported involving the gastrointestinal system. : No signs and/or symptoms were reported regarding the genitourinary system. EENT: No signs and/or symptoms were reported regarding the EENT system. Derm: Skin is intact. Musculoskeletal: Reports pain in right foot. Vital Signs: 22:47 BP 154 / 99; Pulse 88; Resp 18; Temp 97.8(O); Pulse Ox 97% on R/A; Weight 122.47 kg ak1 (R); Height 5 ft. 10 in. (177.80 cm) (R); Pain 4/10; 23:00 BP 152 / 96; Pulse 83; Resp 18; Pulse Ox 95% on R/A; rv 22:47 Body Mass Index 38.74 (122.47 kg, 177.80 cm) ak1 ED Course: 22:38 Patient arrived in ED. es 22:45 Darion Gaitan MD is Attending Physician. tw4 22:47 Arm band placed on Patient placed in an exam room, on a stretcher, on pulse oximetry, ak1 Patient notified of wait time. 22:50 Triage completed. ak1 22:56 Patient has correct armband on for positive identification. Bed in low position. Call rv light in reach. Side rails up X 1. Adult w/ patient. Pulse ox on. NIBP on. 23:37 No provider procedures requiring assistance completed. Patient did not have IV access rv during this emergency room visit. Administered Medications: 22:52 Drug: TORadol 60 mg Route: IM; Site: right deltoid; rv 23:38 Follow up: Response: Pain is decreased rv Outcome: 23:25 Discharge ordered by . tw4 23:37 Discharged to home via wheelchair. rv 23:37 Condition: improved 23:37 Discharge instructions given to patient, Instructed on discharge instructions, follow up and referral plans. medication usage, Demonstrated understanding of instructions, follow-up care, medications, Prescriptions given X 1. 23:38 Patient left the ED. rv Signatures: Michelle Moser Amber, RN RN ak1 Darion Gaitan MD MD tw4 Jacob Lo RN RN rv
--- NOTE | 2018-10-07 04:03 | EDPHYS ---
Physician Documentation [facility] Name: Seble Potter II Age: 33 yrs Sex: Male : 1985 Arrival Date: 10/06/2018 Time: 22:38 Bed 23 Private MD: ED Physician Darion Gaitan Historical: - Allergies: 10/06 22:51 Sulfa (Sulfonamide Antibiotics); ak1 - Home Meds: 22:51 Baclofen Oral [Active]; Methotrexate Sodium Oral [Active]; cimzia [Active]; ak1 - PMHx: 22:51 ankylosing spondilitis; Colitis; Gout; Kidney stones; DVT; ak1 - Immunization history:: Adult Immunizations unknown. - Social history:: Smoking status: Patient/guardian denies using tobacco, Patient/guardian denies using alcohol, street drugs. - Ebola Screening: : No symptoms or risks identified at this time. Vital Signs: 22:47 BP 154 / 99; Pulse 88; Resp 18; Temp 97.8(O); Pulse Ox 97% on R/A; Weight 122.47 kg ak1 (R); Height 5 ft. 10 in. (177.80 cm) (R); Pain 4/10; 23:00 BP 152 / 96; Pulse 83; Resp 18; Pulse Ox 95% on R/A; rv 22:47 Body Mass Index 38.74 (122.47 kg, 177.80 cm) ak1 MDM: 22:45 Patient medically screened. tw4 Administered Medications: 22:52 Drug: TORadol 60 mg Route: IM; Site: right deltoid; rv 23:38 Follow up: Response: Pain is decreased rv Disposition: 10/06/18 23:25 Discharged to Home. Impression: Monoarthritis, not elsewhere classified, right ankle and foot. - Condition is Stable. - Discharge Instructions: Arthritis, Byzv-hl-[id number]. - Prescriptions for indomethacin 25 mg Oral capsule - take 1 capsule by ORAL route 3 times per day with food; 12 capsule. - Medication Reconciliation Form, Thank You Letter, Antibiotic Education, Prescription Opioid Use form. - Follow up: Private Physician; When: Upon discharge from the Emergency Department; Reason: Recheck today's complaints, Continuance of care. - Problem is new. - Symptoms have improved. Addendum: 10/14/2018 06:28 Addendum: HPI: Pt is a 33 year old male that comes to the ED with complaint of right t w4 foot pain. Pt states that he has a history of gout. pt states that this pain feel similar to his gout flare. Pt denies injury to right foot. Pt denies fever, chills, leg swelling or calf pain. Addendum: ROS:Constitutional : denies fever chills malaise HEENT: denies sore throat, neck pain, visual changes CV: denies chest pain, palpitations Resp: denies SOB, DOMINGUEZ, PND Abdomen: denies abdominal pain, nausea vomiting Ext: positive for pain right foot, negative for swelling, injury deformity. Addendum: PE: General: well developed male in NAD Ext: right foot, pulses intact, moderate diffuse swelling of the foot, no erythema, mild tenderness to palpation . Addendum: ED: pt received Toradol for pain states that he feels better. Will give outpatient medications for treatment of gout. Signatures: Mckenna Rodriguez RN RN ak1 Darion Gaitan MD MD tw4 Jacob Lo RN RN rv Corrections: (The following items were deleted from the chart) 10/06 23:38 23:25 10/06/2018 23:25 Discharged to Home. Impression: Monoarthritis, not elsewhere rv classified, right ankle and foot. Condition is Stable. Forms are Medication Reconciliation Form, Thank You Letter, Antibiotic Education, Prescription Opioid Use. Follow up: Private Physician; When: Upon discharge from the Emergency Department; Reason: Recheck today's complaints, Continuance of care. Problem is new. Symptoms have improved. tw4
== END 2018-10-06 23:38 | disposition home or self-care (01) ==
LOC: ER 22:35
DX: M13.171 Monoarthritis, not elsewhere classified, right ankle and foot (principal); Z88.2 Allergy status to sulfonamides
CPT/HCPCS: 96372; 99283

== ENCOUNTER 2020-02-28 11:31 | Emergency (ER) | payer BC ==
--- OUTSIDE RECORDS SUMMARY | 2020-02-28 11:33 | XMS REPORT | Clinical Summary ---
:1985 Author Organization [facility] Address [address] [place] [address] Care Team Providers Name Role Phone Asked, No Pcp Primary Care Provider Unavailable Allergies Active Allergy Reactions Severity Noted Date Comments Sulfa (Sulfonamide Antibiotics) 6 THROAT SWELL Medications Medication Sig Dispensed Refills Start Date End Date Status baclofen TAKE 1 TO 2 TABLETS 60 tablet 2 09/18/2017 Active (LIORESAL) 10 MG BY MOUTH AT BEDTIME tabletIndications: FOR MUSCLE SPASMS Ankylosing spondylitis of lumbosacral region (HCC), Encounter for long-term (current) use of high-risk medication, Hyperuricemia, Fatigue, unspecified type, Renal insufficiency, Acute idiopathic gout of foot, unspecified laterality, Encounter for monitoring of methotrexate therapy, Leukocytosis, unspecified type CIMZIA 400 mg/2 mL INJECT 400MG (2 6 mL 0 02/11/201904/17 (200 mg/mL x 2) SYRINGES) syringe kit SUBCUTANEOUSLY EVERY 4 WEEKS DIRECTED CIMZIA 400 mg/2 mL INJECT 400MG (2 6 each 0 09/02/201911/14 (200 mg/mL x 2) SYRINGES) syringe kit SUBCUTANEOUSLY EVERY 4 WEEKS DIRECTED Active Problems Problem Noted Date 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 12/20/2017 Fall (on) (from) other stairs and steps, initial encou nter 09/27/2017 Hip injury, left, initial encounter 09/27/2017 Rash and nonspecific skin eruption 09/27/2017 Depressed mood 02/26/2017 (ankylosing spondylitis) 06/29/2016 Encounter for long-term (current) use of high-risk med ication 06/29/2016 Hyperuricemia 06/29/2016 Nephrolithiasis 06/29/2016 Renal insufficiency 06/29/2016 Fatigue 06/29/2016 Obesity (BMI 30-39.9) 06/29/2016 Acute right flank pain 04/28/2016 Calculus of urinary bladder 04/28/2016 Leukocytosis 04/28/2016 Encounters Date Type Specialty Care Team Description 08/26/2019 Refill Rheumatology Annel Rivera MD after 02/27/2019 Family History Medical History Relation Name Comments [...] Signs Not on file Plan of Treatment Health Maintenance Due Date Last Done Comments INFLUENZA VACCINE 04/16/2020 Implants Implanted Type Area Broom Bundler Device Shelf Model / Identifier Expiration Serial / Date Lot Stent Uretl S-Flx Kwart Retro-Inject 6fr 28cm - [id number] Periphe ral or N/A: [employer] 10/20/2018 [id number] / Implanted: 03/06/2016 at [facility] (Quantity not on file) Jaswinder iary Stents N/A / [id number] Results Not on fileafter 02/27/2019 Advance Directives For more information, please contact: [phone] Type Date Recorded Patient Delivery Clerk Explanati on Advance Directives, Living Will 12/20/2017 2:07 PM and Medical Power of Personnel Coordinator
--- OUTSIDE RECORDS SUMMARY | 2020-02-28 11:33 | XMS REPORT | Clinical Summary ---
:1985 Author Organization [facility] Address [address] [place] [address] Care Team Providers Name Role Phone Ghada Primary Care Provider Allergies Active Allergy Reactions Severity Noted Date Comments Sulfa (Sulfonamide Antibiotics) Anaphylaxis High 6 Medications No known medications Active Problems Problem [...] Not on file Implants Implanted Type Area Wood Boat Builder Supervisor Device Shelf Model / Identifier Expiration Serial / Lot Date Set Stent Injection 6x28cm [id number] - [id number] Stents-Pe [place]IA [place] 10/17/2017 [id number] / Implanted: Qty: 1 on 02/03/2016 by Edgardo Almonte MD [facility] SCI:ONCOLOGY / [id number] Results Not on fileafter 02/27/2019 Insurance Payer Benefit Plan / Group Subscriber ID Type Phone A ddress HUMANA - MGD CARE HUMANA HMO POS xxxxxxxxx HMO/POS
[2020-02-28 12:11] LABS: Urine Blood 3+ (NEG); Urine Glucose TRACE (NEG); Urine Protein 3+ (NEG); Urine Specific Gravity 1.015 (1.005-1.030); Urine pH 5.5 (5.0-7.0)
[2020-02-28 12:11] LABS: Absolute Lymphocytes (CBC) 1.8 K/uL (0.7-4.9); Basophils % 0.7 % (0-1.3); Hematocrit 48.7 % (39.6-49.0); Lymphocytes % 12.9 % (15.3-44.8); MPV 7.8 fL (7.6-11.3)
[2020-02-28] MEDS ORDERED: MORPHINE 4 MG/ML SYR ONE (12:14)
[2020-02-28] MEDS ORDERED: NA CHLORIDE 0.9% 1,000 ML ONE (12:14)
[2020-02-28] MEDS ORDERED: ONDANSETRON 4 MG/2 ML VIAL ONE (12:14)
[2020-02-28 12:34] LABS: Albumin 4.1 g/dL (3.4-5.0); Bilirubin Total 0.5 mg/dL (0.2-1.0); Potassium 3.8 mmol/L (3.5-5.1); Protein, Total 8.4 g/dL (6.4-8.2)
--- NOTE | 2020-02-28 12:42 | RAD REPORT ---
EXAM DESCRIPTION: CT - Stone Protocol - 02/28/2020 12:16 pm CLINICAL HISTORY: Pain;Kidney stones, bilateral flank pain with hematuria COMPARISON: CTSTONE PROTOCOL dated 12/06/2013 TECHNIQUE: Axial 5 mm thick images were obtained without oral or IV contrast. The vsivu-ul-ehxh span s the entirety of the system including uppermost abdomen and lung bases. All CT scans are performed using dose optimization technique as appropriate and may include automated exposure control or mA/KV adjustment according to patient size. FINDINGS: Mild right-sided hydronephrosis is present extending down to the UVJ. There is no obstruct ing calculus. The 10 x 2 millimeter area of calcification is present lower pole calyx on the right. P atient has left-sided nephrocalcinosis of the renal pyramids. A 2.5 centimeter low-density mass mid l eft kidney is believed to be a cyst. This has rim calcification. Moderate severity hydronephrosis is present in the left-side pelvis and calices with [id number] left-sided hydroureter down to the UVJ. The patient has an unusual 18 millimeter long calcification than extends from the distal ureter, across the UVJ into the lumen of the bladder. This could be an u nusual linear calcification or a cluster of calcifications. Patient additionally has a 4 millimeter b ladder calculus. Isodense masses and pyelonephritis are not excluded on stone protocol study. No sign ificant adrenal finding. No other urinary bladder finding. Liver shows diffuse fatty infiltration no focal liver lesions seen. Spleen and pancreas show no suspi cious findings. No gallbladder or biliary tree abnormality identified. No suspicious bowel findings. Appendix is normal. No hernia, mass or bulky lymphadenopathy noted. No free air, free fluid or inflammatory stranding. No significant bony abnormality. IMPRESSION: Moderate severity left-sided hydronephrosis secondary to an unusual elongated linear jackie cification 18 mm in length. This extends from the distal ureter, across the UVJ into the bladder lume n. The left sided calcification may be a single the elongated calcification that has formed or a cluster of abutting calcifications. Mild right-sided hydronephrosis without obstructing calculus seen. The patient has a 4 mm bladder jackie culus. Mildly complex 2.5 centimeter left renal cyst with rim calcification. Isodense masses and pyelonephritis are not excluded on stone protocol technique.
[2020-02-28] MEDS ORDERED: CEFTRIAXONE/SWI 1gm 1 GM/10 ML SYR ONE (13:14)
--- NOTE | 2020-02-28 13:32 | EDPHYS ---
Physician Documentation [facility] Name: Seble Potter II Age: 34 yrs Sex: Male : 1985 Arrival Date: 02/28/2020 Time: 11:33 Bed 2 Private MD: Esequiel Waters HPI: 02/27 11:57 This 34 yrs old Male presents to ER via Ambulatory with complaints of dov Possible Kidney Stone. 11:57 The patient presents with pain that is acute, with no known mechanism of injury. The dov symptoms are located in the left mid back and right mid back. Onset: The symptoms/episode began/occurred this morning. The pain does not radiate. Associated signs and symptoms: The patient has no apparent associated signs or symptoms. The problem was sustained from unknown cause. Modifying factors: The patient symptoms are alleviated by nothing, the patient symptoms are aggravated by nothing. Severity of symptoms: At their worst the symptoms were moderate, in the emergency department the symptoms are unchanged. The patient has not experienced similar symptoms in the past. Historical: - Allergies: 11:44 Sulfa (Sulfonamide Antibiotics); iw - Home Meds: 11:44 Tylenol #3 Oral as needed [Active]; iw - PMHx: 11:44 ankylosing spondilitis; Colitis; DVT; Gout; Kidney stones; Diabetes - NIDDM; iw - PSHx: 11:44 Kidney stents; Lithotripsy; iw - Immunization history:: Adult Immunizations. - Social history:: Smoking status: Patient denies any tobacco usage or history of. - Family history:: not pertinent. ROS: 11:57 Constitutional: Negative for fever, chills, and weight loss, Eyes: Negative for injury, dov pain, redness, and discharge, ENT: Negative for injury, pain, and discharge, Neck: Negative for injury, pain, and swelling, Cardiovascular: Negative for chest pain, palpitations, and edema, Respiratory: Negative for shortness of breath, cough, wheezing, and pleuritic chest pain, Abdomen/GI: Negative for abdominal pain, nausea, vomiting, diarrhea, and constipation, : Negative for injury, bleeding, discharge, and swelling, MS/Extremity: Negative for injury and deformity, Skin: Negative for injury, rash, and discoloration, Neuro: Negative for headache, weakness, numbness, tingling, and seizure, Psych: Negative for depression, anxiety, suicide ideation, homicidal ideation, and hallucinations, Allergy/Immunology: Negative for hives, rash, and allergies, Endocrine: Negative for neck swelling, polydipsia, polyuria, polyphagia, and marked weight changes, Hematologic/Lymphatic: Negative for swollen nodes, abnormal bleeding, and unusual bruising. 11:57 Back: Positive for pain at rest, of the left mid back and right mid back. Exam: 11:57 Constitutional: This is a well developed, well nourished patient who is awake, alert, dov and in no acute distress. Head/Face: Normocephalic, atraumatic. Eyes: Pupils equal round and reactive to light, extra-ocular motions intact. Lids and lashes normal. Conjunctiva and sclera are non-icteric and not injected. Cornea within normal limits. Periorbital areas with no swelling, redness, or edema. ENT: Nares patent. No nasal discharge, no septal abnormalities noted. Tympanic membranes are normal and external auditory canals are clear. Oropharynx with no redness, swelling, or masses, exudates, or evidence of obstruction, uvula midline. Mucous membranes moist. Neck: Trachea midline, no thyromegaly or masses palpated, and no cervical lymphadenopathy. Supple, full range of motion without nuchal rigidity, or vertebral point tenderness. No Meningismus. Chest/axilla: Normal chest wall appearance and motion. Nontender with no deformity. No lesions are appreciated. Cardiovascular: Regular rate and rhythm with a normal S1 and S2. No gallops, murmurs, or rubs. Normal PMI, no JVD. No pulse deficits. Respiratory: Lungs have equal breath sounds bilaterally, clear to auscultation and percussion. No rales, rhonchi or wheezes noted. No increased work of breathing, no retractions or nasal flaring. Abdomen/GI: Soft, non-tender, with normal bowel sounds. No distension or tympany. No guarding or rebound. No evidence of tenderness throughout. Back: No spinal tenderness. No costovertebral tenderness. Full range of motion. Male : Normal genitalia with no discharge or lesions. Skin: Warm, dry with normal turgor. Normal color with no rashes, no lesions, and no evidence of cellulitis. MS/ Extremity: Pulses equal, no cyanosis. Neurovascular intact. Full, normal range of motion. Neuro: Awake and alert, GCS 15, oriented to person, place, time, and situation. Cranial nerves II-XII grossly intact. Motor strength 5/5 in all extremities. Sensory grossly intact. Cerebellar exam normal. Normal gait. Psych: Awake, alert, with orientation to person, place and time. Behavior, mood, and affect are within normal limits. Vital Signs: 11:42 BP 169 / 110; Pulse 84; Resp 16; Temp 97.4; Pulse Ox 96% on R/A; Weight 117.93 kg; iw Height 5 ft. 10 in. (177.80 cm); Pain 6/10; 12:51 BP 138 / 97; Pulse 90; Resp 17; Pulse Ox 96% ; Pain 2/10; jl7 14:43 BP 138 / 68; Pulse 68; Resp 15; Pulse Ox 98% ; jl7 15:50 BP 154 / 87; Pulse 63; Resp 17; Temp 97.5; Pulse Ox 98% ; bp 11:42 Body Mass Index 37.31 (117.93 kg, 177.80 cm) iw MDM: 11:46 Patient medically screened. [facility] 12:07 Data reviewed: vital signs, nurses notes, lab test result(s), radiologic studies, CT dov scan. 12:07 Differential diagnosis: Cholelithiasis Osteoarthritis Pyelonephritis Renal Infarction dov sprain, Ureterolithiasis. 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 Counseling: I had a detailed discussion with the patient and/or guardian regarding: the historical points, exam findings, and any diagnostic results supporting the discharge/admit diagnosis, lab results, radiology results. Medication response: 13:31 ED course: dw plan with the patient and dr villar at [facility], will accept in transfer, dov pt stable and agrees with the plan. 14:18 ED course: dr de leon accepting for attending. [facility] 02/27 11:56 Order name: CBC with Diff; Complete Time: 12:56 [facility] 02/27 11:56 Order name: Comprehensive Metabolic Panel; Complete Time: 12:56 [facility] 02/27 11:56 Order name: CT Stone Protocol; Complete Time: 12:56 [facility] 02/27 11:56 Order name: Urine Culture [facility] 02/27 12:06 Order name: Urine Dipstick--Ancillary (enter results); Complete Time: 12:56 02/27 11:56 Order name: Urine Dipstick-Ancillary (obtain specimen); Complete Time: 12:11 [facility] Administered Medications: 12:05 Drug: NS 0.9% 1000 ml Route: IV; Rate: 1 bolus; Site: right antecubital; bp 13:00 Follow up: Response: No adverse reaction; IV Status: Completed infusion; IV Intake: jl7 1000ml 12:05 Drug: morphine 4 mg Route: IVP; Site: right antecubital; bp 12:30 Follow up: Response: No adverse reaction; Pain is decreased jl7 12:05 Drug: Zofran (Ondansetron) 4 mg Route: IVP; Site: right antecubital; bp 12:53 Follow up: Response: No adverse reaction 7 13:05 Drug: Rocephin 1 grams Route: IV; Rate: per protocol; Site: right forearm; 7 13:08 Follow up: Response: No adverse reaction; IV Status: Completed infusion [facility] Disposition: 02/28/20 13:31 Transfer ordered to [facility]. Diagnosis are Hydronephrosis with renal and ureteral calculous obstruction - left, moderate, right hydro with no ureteral stone, 4 mm in the bladder, Type 2 diabetes mellitus, Unspecified kidney failure - renal insufficency. - Reason for transfer: Higher level of care. - Accepting physician is to [facility], per dr villar. - Condition is Fair. - Problem is new. - Symptoms have improved. Signatures: Dispatcher [employer] EDMS Esequiel Conley MD MD cha Williams, Irene RN ALTON Sb Upton RN RN jl7 Peltier, Brian, RN RN bp Corrections: (The following items were deleted from the chart) 15:52 13:31 02/28/2020 13:31 Transfer ordered to [facility]. Diagnosis is bp Hydronephrosis with renal and ureteral calculous obstruction - left, moderate, right hydro with no ureteral stone, 4 mm in the bladder; Type 2 diabetes mellitus; Unspecified kidney failure - renal insufficency. Reason for transfer: Higher level of care. [facility]ing physician [facility], per dr villar. Condition is Fair. Problem is new. Symptoms have improved. dov
--- NOTE | 2020-02-28 13:32 | ER ---
Nurse's Notes [facility] Name: Seble Potter II Age: 34 yrs Sex: Male : 1985 Arrival Date: 02/28/2020 Time: 11:33 Bed 2 Private MD: Diagnosis: Hydronephrosis with renal and ureteral calculous obstruction-left, moderate, right hydro with no ureteral stone, 4 mm in the bladder;Type 2 diabetes mellitus;Unspecified kidney failure-renal insufficency Presentation: 02/27 11:42 Chief complaint: Patient states: hx of kidney stones, c/o blaine flank pain since this iw morning, blood in urine. Coronavirus screen: Proceed with normal triage. Patient denies a cough. Patient denies shortness of breath or difficulty breathing. Patient denies measured and/or subjective temperature greater than 100.4F prior to today's visit. Patient denies travel on a cruise ship or to a country the [facility] currently lists as an affected area. Patient denies contact with known and/or suspected case of COVID-19. Ebola Screen: Patient negative for fever greater than or equal to 101.5 degrees Fahrenheit, and additional compatible Ebola Virus Disease symptoms Patient denies exposure to infectious person. Patient denies travel to an Ebola-affected area in the 21 days before illness onset. No symptoms or risks identified at this time. Initial Sepsis Screen: Does the patient meet any 2 criteria? No. Patient's initial sepsis screen is negative. Does the patient have a suspected source of infection? No. Patient's initial sepsis screen is negative. Risk Assessment: Do you want to hurt yourself or someone else? Patient reports no desire to harm self or others. Onset of symptoms was February 28, 2020. 11:42 Method Of Arrival: Ambulatory iw 11:42 Acuity: KARL 3 iw Historical: - Allergies: 11:44 Sulfa (Sulfonamide Antibiotics); iw - Home Meds: 11:44 Tylenol #3 Oral as needed [Active]; iw - PMHx: 11:44 ankylosing spondilitis; Colitis; DVT; Gout; Kidney stones; Diabetes - NIDDM; iw - PSHx: 11:44 Kidney stents; Lithotripsy; iw - Immunization history:: Adult Immunizations. - Social history:: Smoking status: Patient denies any tobacco usage or history of. - Family history:: not pertinent. Screenin:45 Abuse screen: Denies threats or abuse. Denies injuries from another. Nutritional jl7 screening: No deficits noted. Tuberculosis screening: No symptoms or risk factors identified. Fall Risk IV access (20 points). Total Dupree Fall Scale indicates No Risk (0-24 pts). Assessment: 11:45 General: Appears in no apparent distress. uncomfortable, Behavior is cooperative, jl7 appropriate for age, anxious. Pain: Complains of pain in right mid back and left mid back Pain currently is 5 out of 10 on a pain scale. Pain began suddenly, Is continuous. Neuro: Level of Consciousness is awake, alert, obeys commands, Oriented to person, place, time, situation. Cardiovascular: Patient's skin is warm and dry. Respiratory: Airway is patent Respiratory effort is even, unlabored, Respiratory pattern is regular, symmetrical. GI: Abdomen is non-distended, : Reports pain in bilateral flank(s). Derm: Skin is pink, warm \T\ dry. 12:51 Reassessment: Pt laying in bed with eyes closed, respirations even and unlabored, jl7 easily arousable with verbal stimuli. Reports pain is a 2/10 at this time. Lowered head of bed for pt comfort. 14:43 Reassessment: Patient appears in no apparent distress at this time. No changes from jl7 previously documented assessment. Patient and/or family updated on plan of care and expected duration. Pain level reassessed. Patient is alert, oriented x 3, equal unlabored respirations, skin warm/dry/pink. 15:50 Reassessment: EMS AT B/S FOR TRANSPORT. bp Vital Signs: 11:42 BP 169 / 110; Pulse 84; Resp 16; Temp 97.4; Pulse Ox 96% on R/A; Weight 117.93 kg; iw Height 5 ft. 10 in. (177.80 cm); Pain 6/10; 12:51 BP 138 / 97; Pulse 90; Resp 17; Pulse Ox 96% ; Pain 2/10; jl7 14:43 BP 138 / 68; Pulse 68; Resp 15; Pulse Ox 98% ; jl7 15:50 BP 154 / 87; Pulse 63; Resp 17; Temp 97.5; Pulse Ox 98% ; bp 11:42 Body Mass Index 37.31 (117.93 kg, 177.80 cm) iw ED Course: 11:33 Patient arrived in ED. ag5 11:41 Esequiel Conley MD is Attending Physician. dov 11:43 Triage completed. iw 11:45 Patient has correct armband on for positive identification. Bed in low position. Call jl7 light in reach. Side rails up X 1. Pulse ox on. NIBP on. 11:46 Sb Upton, ALTON is Primary Nurse. jl7 12:02 Arm band placed on right wrist. jl7 12:02 Initial lab(s) drawn, by me, sent to lab. Urine collected: clean catch specimen, clear. jl7 Inserted saline lock: 20 gauge in right forearm, using aseptic technique. Blood collected. 12:16 CT completed. Patient tolerated procedure well. Patient moved back from CT. bq 12:16 CT Stone Protocol In Process Unspecified. EDMS 13:[address] Miranda who is covering Dr. Almonte the urologist manager implementation with [facility] Streeter for eb patient transfer consultation. 13:30 initiated a transfer with Kathy Castaneda from the [facility]. eb 14:15 connected the hospitalist manager implementation for [facility] with Dr. Conley for patient eb transfer consultation. 14:25 administrative approval given by nisa Castaneda Brazing Machine Setter. Patient has been eb accepted to [facility] pending a bed/ DrDarryl Marie has accepted the patient in transfer/ face sheet faxed to [phone]. 14:48 patient will be going to [facility] to the [facility] bed 2108/ report to be eb called to [phone]. 15:51 No provider procedures requiring assistance completed. Patient transferred, IV remains bp in place. Administered Medications: 12:05 Drug: NS 0.9% 1000 ml Route: IV; Rate: 1 bolus; Site: right antecubital; bp 13:00 Follow up: Response: No adverse reaction; IV Status: Completed infusion; IV Intake: jl7 1000ml 12:05 Drug: morphine 4 mg Route: IVP; Site: right antecubital; bp 12:30 Follow up: Response: No adverse reaction; Pain is decreased jl7 12:05 Drug: Zofran (Ondansetron) 4 mg Route: IVP; Site: right antecubital; bp 12:53 Follow up: Response: No adverse reaction jl7 13:05 Drug: Rocephin 1 grams Route: IV; Rate: per protocol; Site: right forearm; jl7 13:08 Follow up: Response: No adverse reaction; IV Status: Completed infusion 7 Intake: 13:00 IV: 1000ml; Total: 1000ml. Outcome: 13:31 ER care complete, transfer ordered by MD. monae 15:51 Transferred by ground EMS to [facility], Transfer form completed. bp 15:51 Condition: stable 15:51 Instructed on the need for transfer. 15:52 Patient left the ED. bp Signatures: Dispatcher [employer] EDMS Esequiel Conley MD MD cha Quilty, Betty bq Williams, Irene RN Sb Zabala RN RN jl7 Peltier, Brian, RN RN bp Botello, Elizabeth eb Gaskin, Ajare 5
[2020-02-28 16:01] VITALS: O2SAT 98
[2020-02-28 16:03] VITALS: BP 154/87; TEMP 97.5
== END 2020-02-28 15:52 | disposition short-term general hospital (02) ==
LOC: ER 11:31
DX: N13.2 Hydronephrosis with renal and ureteral calculous obstruction (principal); N28.9 Disorder of kidney and ureter, unspecified; E11.9 Type 2 diabetes mellitus without complications; Z88.2 Allergy status to sulfonamides
CPT/HCPCS: 87088; 85025; 87086; 36415; 81003; 80053; 76377; 74176; 99285; J0696; J7030; J2405

== ENCOUNTER 2020-08-21 | Emergency (ER) | payer BC ==
--- OUTSIDE RECORDS SUMMARY | 2020-08-21 11:41 | XMS REPORT | Clinical Summary ---
:1985 Author Organization [facility] Address [address] [place] [address] Care Team Providers Name Role Phone Edgardo Shepard Primary Care Provider Allergies Active Allergy Reactions Severity Noted Date Comments Sulfa (Sulfonamide Antibiotics) 6 THROAT SWELL Medications Medication Sig Dispensed Refills Start End Date Status Date baclofen TAKE 1 TO 2 TABLETS 60 tablet 2 Active (LIORESAL) 10 MG BY MOUTH AT BEDTIME 8 tabletIndications FOR MUSCLE SPASMS : Ankylosing spondylitis of lumbosacral region (HCC), Encounter for long-term (current) use of high-risk medication, Hyperuricemia, Fatigue, unspecified type, Renal insufficiency, Acute idiopathic gout of foot, unspecified laterality, Encounter for monitoring of methotrexate therapy, Leukocytosis, unspecified type certolizumab Inject 200 mg under 0 Active pegoL (CIMZIA) the skin every 14 400 mg/2 mL (200 (fourteen) days. mg/mL x 2) syringe kit allopurinoL Take 600 mg by 0 Act nanette (ZYLOPRIM) 300 MG mouth daily. 0 tablet pot,sodium Take 15 mL by mouth 473 mL 0 Active citrate-citric every 12 (twelve) 0 acid hours. (TRICITRATES) 550-500-334 mg/5 mL solution CIMZIA 400 mg/2 INJECT 400MG (2 6 each 0 12/01/19 mL (200 mg/mL x SYRINGES) 9 20 2) syringe kit SUBCUTANEOUSLY EVERY 4 WEEKS DIRECTED pot,sodium Take 15 mL by mouth 473 mL 0 03/02/20 Discontinued citrate-citric 4 (four) times a 0 20 acid day with meals and (TRICITRATES) nightly for 30 550-500-334 mg/5 days. mL solution tamsulosin Take 1 capsule (0.4 30 capsule 0 04/02/20 (FLOMAX) 0.4 mg mg total) by mouth 0 20 capsule daily for 30 days. 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 involving [...] Encounters Date Type Specialty Care Team Description 04/23/2020 Refill Internal Medicine Elijah Leonard MD 03/24/2020 Refill Internal Medicine Elijah Leonard MD 03/01/2020 Anesthesia Event Urology Nestor Johnston D O Crawley, Teri, NP 03/01/2020 Surgery Urology Johana Zarate CYSTO, BILA TERAL MD RETROGRADE PYELOGRAMS, BILATERAL URETROSCOPY, LE NICOLE VELOZNET STONE BASKETING, LUIGI VARGAS STENT PLACEMENT 02/28/2020 [facility] General Internal Alejandro Marie Nephrol ithiasis (Primary Dx); - Encounter Medicine Lalit SESAY MD Hydronephrosis with renal and ureteral c alculous obstruction; 03/02/2020 Moraima Darling, KISHA (acute kidney injury) (HCC) MD Christian, Atif Ruby MD 08/26/2019 Refill Rheumatology Annel Rivera MD after 08/21/2019 Surgical History Surgery Date Site/Laterality Comments URETERAL STENT PLACEMENT LITHOTRIPSY CO CYSTO/URETERO/PYELOSCOPY 03/06/2016 Left Proc edure: CYSTOSCOPY, LEFT W/LITHOTRIPSY URETEROSCOPY, LA SER OF STONE, LEFT STEN T PLACEMENT ; Surgeon: Won Almonte MD; Location: [facility] IN OR; Service: Urology Medical devices from this surgery are in t he Implants section. CYSTO, URETEROSCOPY 03/01/2020 N/A Procedure: C YSTO, BILATERAL RETROGRADE PYELO GRAMS, BILATERAL URETRO SCOPY, LEFT KIDNET STONE BAS KETING, BILATERAL STENT PLACEMENT; Surgeon: Johana Zarate MD; Location: [facility] OR; Service: Urology ; Laterality: N/A; Medical devices from this surgery are in t he Implants section. Medical History Medical History Date Comments Gout Anesthesia NHAP/NO FHAP-no CP/S OB Ankylosing spondylitis (HCC) Kidney stones Arthritis Psoriasis groin, buttocks Family History Medical History Relation Name Comments [...] Vital Signs Vital Sign Reading Time Taken Comments Blood Pressure 182/94 03/02/2020 11:47 AM CDT Pulse 87 03/02/2020 11:47 AM CDT Temperature 35.5 C (95.9 F) 03/02/2020 11:47 AM CDT Respiratory Rate 17 03/02/2020 7:58 AM CDT Oxygen Saturation 98% 03/02/2020 11:47 AM CDT Inhaled Oxygen Concentration - - Weight 117 kg (257 lb 12.8 oz) 03/01/2020 5:05 AM CDT Height 177.8 cm (5' 10") 03/01/2020 5:05 AM CDT Body Mass Index 36.99 03/01/2020 5:05 AM CDT Plan of Treatment Health Maintenance Due Date Last Done Comments DIABETES: RETINAL EYE EXAM 1997 DIABETIC FOOT EXAM 1997 URINE MICROALBUMIN 1997 INFLUENZA VACCINE 04/16/2020 Implants Implanted Type Area Network Support Manager Device Shelf Model / Identifier Expiration Serial / Date Lot Stent Uretl S-Flx Kwart Retro-Inject 6fr 28cm - [id number] Periphe ral or N/A: [employer] 10/20/2018 [id number] / Implanted: 03/06/2016 at [facility] (Quantity not on file) Biliary N/A / Stents [id number] Catheter Uretl 6/10fr 50cm Flx-Tp Dlmn Std Accs - [id number] Uro logical N/A: [employer] [id number] / Implanted: 03/01/2020 at [facility] (Quantity not on file) Implants or N/A / Sets Stent Uretl Polrs Ult [id number] 6fr 26cm Hydroplus W/O Gw - Log [id number] Urological Right: [facility] 11/04/2022 192 133 / Implanted: Qty: 1 on 03/01/2020 by Johana Zarate MD at [facility] Implants or N/A / Sets [id number] Stent Uretl Polrs Ult 2drmtr 6fr 26cm Hydroplus W/O Gw - Log [id number] Urological Left: [facility] 10/28/2022 192 133 / Implanted: Qty: 1 on 03/01/2020 by Johana Zarate MD at [facility] Implants or N/A / Sets [id number] Procedures Procedure Name Priority Date/Time Associated Diagnosis Comme nts POC GLUCOSE Routine 03/02/2020 12:35 Results for this PM CDT procedure are i n the results section. BETA HYDROXYBUTYRATE STAT 03/02/2020 9:37 Res ults for this AM CDT procedure are i n the results section. POC GLUCOSE Routine 03/02/2020 8:17 Results for this AM CDT procedure are i n the results section. ESTIMATED GFR Routine 03/02/2020 5:00 Results fo r this AM CDT procedure are i n the results section. BASIC METABOLIC PANEL Routine 03/02/2020 5:00 Re sults for this AM CDT procedure are i n the results section. HC COMPLETE BLD COUNT Routine 03/02/2020 5:00 Re sults for this W/AUTO DIFF AM CDT procedure are i n the results section. POC GLUCOSE Routine 03/01/2020 4:53 Results for this PM CDT procedure are i n the results section. POC GLUCOSE Routine 03/01/2020 1:05 Results for this PM CDT procedure are i n the results section. SURGICAL PATHOLOGY Routine 03/01/2020 12:58 Resul ts for this REQUEST PM CDT procedure are i n the results section. SURGICAL PATHOLOGY Routine 03/01/2020 12:58 Resul ts for this REQUEST PM CDT procedure are i n the results section. FL RENAL STENTOGRAM Routine 03/01/2020 12:20 Resu lts for this PM CDT procedure are i n the results section. CALCULI ANALYSIS WITH Routine 03/01/2020 11:43 Re sults for this PHOTO AM CDT procedure are i n the results section. CO AN ELECTIVE Routine 03/01/2020 11:02 Results f or this ENDOTRACHEAL AIRWAY AM CDT procedur e are in the results section. CYSTO, URETEROSCOPY 03/01/2020 10:48 Hydronephrosis wi th AM CDT renal and ureteral calculous obstruction Special Needs REQ 1030 START TYPE AND SCREEN Routine 03/01/2020 5:17 AM CDT R esults for this procedure are i n the results section . ESTIMATED GFR Routine 03/01/2020 5:17 AM CDT Res ults for this procedure are i n the results section . ALBUMIN LEVEL Routine 03/01/2020 5:17 AM CDT Res ults for this procedure are i n the results section . PHOSPHORUS LEVEL Routine 03/01/2020 5:17 AM CDT Results for this procedure are i n the results section . BASIC METABOLIC PANEL Routine 03/01/2020 5:17 AM CDT Results for this procedure are i n the results section . HC COMPLETE BLD COUNT W/AUTO Routine 03/01/2020 5:17 AM CDT Results for this DIFF procedure are i n the results section . PARATHYROID HORMONE Routine 03/01/2020 5:17 AM CDT Results for this procedure are i n the results section . PROTHROMBIN TIME WITH INR Routine 03/01/2020 5:17 AM CDT Results for this procedure are i n the results section . CALCULI ANALYSIS WITH PHOTO Routine 02/29/2020 5:35 PM CDT Results for this procedure are i n the results section . POC GLUCOSE Routine 02/29/2020 4:49 PM CDT Resu lts for this procedure are i n the results section . COVID-19 QUALITATIVE PCR STAT 02/29/2020 4:00 PM CDT Results for this procedure are i n the results section . POC GLUCOSE Routine 02/29/2020 11:37 AM CDT Resu lts for this procedure are i n the results section . POC GLUCOSE Routine 02/29/2020 7:51 AM CDT Resu lts for this procedure are i n the results section . PARTIAL THROMBOPLASTIN TIME Routine 02/29/2020 5:30 AM CDT Results for this (PTT) procedure are i n the results section . HC COMPLETE BLD COUNT W/AUTO Routine 02/29/2020 5:30 AM CDT Results for this DIFF procedure are i n the results section . ESTIMATED GFR Routine 02/29/2020 4:00 AM CDT Res ults for this procedure are i n the results section . BASIC METABOLIC PANEL Routine 02/29/2020 4:00 AM CDT Results for this procedure are i n the results section . URINE CULTURE Routine 02/28/2020 9:25 PM CDT Res ults for this procedure are i n the results section . HC COMPLETE BLD COUNT W/AUTO Routine 02/28/2020 8:10 PM CDT Results for this DIFF procedure are i n the results section . PARTIAL THROMBOPLASTIN TIME Routine 02/28/2020 8:10 PM CDT Results for this (PTT) procedure are i n the results section . PROTHROMBIN TIME WITH INR Routine 02/28/2020 8:10 PM CDT Results for this procedure are i n the results section . HEMOGLOBIN A1C Routine 02/28/2020 8:00 PM CDT Re sults for this procedure are i n the results section . POC GLUCOSE Routine 02/28/2020 7:40 PM CDT Resu lts for this procedure are i n the results section . URINALYSIS SCREEN AND Routine 02/28/2020 7:23 PM CDT Results for this MICROSCOPY, WITH REFLEX TO p rocedure are in the CULTURE results section . ESTIMATED GFR Routine 02/28/2020 7:20 PM CDT Res ults for this procedure are i n the results section . CREATININE LEVEL Routine 02/28/2020 7:20 PM CDT Results for this procedure are i n the results section . ECG 12-LEAD Routine 02/28/2020 7:05 PM CDT Resu lts for this procedure are i n the results section . ESTIMATED GFR Routine 02/28/2020 6:05 PM CDT Res ults for this procedure are i n the results section . URIC ACID LEVEL Routine 02/28/2020 6:05 PM CDT R esults for this procedure are i n the results section . LACTIC ACID LEVEL Routine 02/28/2020 6:05 PM CDT Results for this procedure are i n the results section . COMPREHENSIVE METABOLIC Routine 02/28/2020 6:05 PM CDT Results for this PANEL procedure are i n the results section . CT ABD/PELVIC EXTERNAL STUDY Routine 02/28/2020 12:13 PM CDT Results for this procedure are i n the results section . after 08/21/2019 Results POC glucose (03/02/2020 12:35 PM CDT)Only the most recent of8 resultswithin the time period is included. [facility] POC glucose 184 (H) 65 - 99 mg/dL [facility] Comment: HOSPITAL Account Services Associate Name: Galilea Grady Device ID: [id number] Chartable: [facility] Notified RN Specimen Blood Performing Organization Address City/[facility] Phon e Number [facility] DEPARTMENT OF PATHOLOGY AND [address] [place] [address] [phone] [address] Beta hydroxybutyrate (03/02/2020 9:37 AM CDT) [facility] Beta hydroxybutyrate 0.06 0.02 - 0.27 [facility] mmol/L HOSPITAL Specimen Serum Performing Organization Address [facility] Phon e Number [facility] DEPARTMENT OF PATHOLOGY AND [address] [place], [place] [phone] [address] [address] Estimated GFR (03/02/2020 5:00 AM CDT)Only the most recent of5 resultswithin the time period is included. [facility] Estimated GFR 52 (A) mL/min/1.73 [facility] Comment: m2 HOSPITAL Catergory Units Interpretation G1 >=90 Normal or high G2 60-89 Mildly decreased G3a 45-59 Mildly to moderately decreas ed G3b 30-44 Moderately to severely decre ased G4 15-29 Severely decreased G5 <15 Kidney failure The eGFR was calculated using the Chronic Kidney Disea se Epidemiology Collaboration (CKD-EPI) equation. Interpretation is based on recommendations of the National Kidney Foundation-Kidney Disease Outcomes Boo lity Initiative (NKF-KDOQI) published in 2014. Specimen Performing Organization Address City/[facility] Phon e Number [facility] DEPARTMENT OF PATHOLOGY AND [address] [place] [address] [phone] [address] CBC with platelet and differential (03/02/2020 5:00 AM CDT)Only the most recent of4 resultswithin the time period is included. WBC 11.31 (H) 4.50 - 11.00 [facility] k/uL HOSPITAL RBC 4.99 4.40 - 6.00 [facility] m/uL [facility] HGB 14.3 14.0 - 18.[address] [facility] HCT 44.2 41.0 - 51.0 % [facility] MCV 88.6 82.0 - 100.0 [facility] MCH 28.7 27.0 - 34.0 pg [facility] MCHC 32.4 31.0 - 37.0 [facility] RDW - SD 43.2 37.0 - 55.0 fL [facility] MPV 9.6 8.8 - 13.2 fL [facility] Platelet count 277 150 - 400 k/uL [facility] Nucleated RBC 0.00 /100 WBC [facility] Neutrophils 70.2 (H) 39.0 - 69.0 % [facility] Lymphocytes 18.7 (L) 25.0 - 45.0 % [facility] Monocytes 9.5 0.0 - 10.0 % [facility] Eosinophils 1.0 0.0 - 5.0 % [facility] Basophils 0.3 0.0 - 1.0 % [facility] Immature granulocytes 0.3Comment: 0.0 - 1.0 % [facility] "Immature [facility] granulocytes" (promyelocytes , myelocytes, metamyelocytes ) Specimen Blood Performing Organization Address City/[facility] Phon e Number [facility] DEPARTMENT OF PATHOLOGY AND [address] [place], [place] [phone] [address] Basic metabolic panel (03/02/2020 5:00 AM CDT)Only the most recent of3 results within the time period is included. Pathologist Sig nature Sodium 140 135 - 148 mEq/L [facility] Potassium 4.1 3.5 - 5.0 mEq/L [facility] Chloride 103 98 - 112 mEq/L [facility] CO2 20 (L) 24 - 31 mEq/L [facility] Anion gap 17@ANIO (H) 7 - 15 mEq/L [facility] BUN 17 6 - 20 mg/dL [facility] Creatinine 1.70 (H) 0.70 - 1.20 mg/dL [facility] Glucose 296 (H) 65 - 99 mg/dL [facility] Calcium 9.3 8.3 - 10.2 mg/dL [facility] Specimen Blood Performing Organization Address [facility] Phon e Number [facility] DEPARTMENT OF PATHOLOGY AND [address] [place] [phone] GENOMIC MEDICINE [address] [address] Surgical pathology request (03/01/2020 12:58 PM CDT)Only the most recent of2 resultswithin the time period is included. [facility] DEPARTMENT OF PATHOLOGY AND GENOMIC MEDICINE Surgical pathology See link below for [facility] DEPARTMENT O F report PDF Lab Report PATHOLOGY AND GENOMIC MEDICINE Result status This is Supplemental [facility] DEPARTMENT OF Report for PATHOLOGY AND [id number] GENOMIC MEDICINE Specimen Performing Organization Address [facility] Phon e Number [facility] DEPARTMENT OF PATHOLOGY AND [address] [place] [phone] GENOMIC MEDICINE FL Renal Stentogram (03/01/2020 12:20 PM CDT) Specimen Narrative Performed At EXAMINATION: FL RENAL STENTOGRAM [facility] CLINICAL HISTORY: COMPARISON: 02/28/2020 external study TECHNIQUE:Renal stentogram IMPRESSION: 1.Please refer to clinical note on the same date. Procedure Note Interface, Radiology Results Incoming - 03/01/2020 3:30 PM CDT EXAMINATION: FL RENAL STENTOGRAM CLINICAL HISTORY: COMPARISON: 02/28/2020 external study TECHNIQUE:Renal stentogram IMPRESSION: 1.Please refer to clinical note on the s shari date. Performing Organization Address City/[facility] Phon e Number [facility] [address] [place] [phone] Calculi analysis with photo (03/01/2020 11:43 AM CDT)Only the most recent of2 resultswithin the time period is included. Calculi mass 9 mg [facility] Calculi number 1 [facility] Calculi size 1 to 4 mm [facility] Calculi descrption See Note [facility] Comment: Specimen consists of a single, small, ying, irregular calculus. Calculi composition See Note [facility] Comment: Calculi composed primarily of uric acid. INTERPRETIVE INFORMATION: Calculi (Stone) analysis Calculi are the products of physiological processes th at yield crystalline compounds in a matrix of biological compou nds and blood. Matrix components are not reported. The cli nically significant crystalline components identified in calcu li specimens are reported. Gross description may not be consisten t with composition determined by FTIR analysis. EER calculi (stone) See Note [facility] analysis and photo Comment: Access [facility] Enhanced Report using either link below: -Direct access: [email or web address] -Enter Username, Password: [email or web address] Username: [email or web address] Password: [email or web address] Performed by [facility], [address] [place] [id number] [email or web address] Benja Donald MD, Lab. Director Specimen Serum Narrative Performed At [id number] [facility] Left Renal Stone Performing Organization Address City/State/ZIP Code Phon e Number [facility] [address] [phone] [facility] [address] [place] [address] Airway (03/01/2020 11:02 AM CDT) Narrative Performed At Latoya Morillo 03/01/2020 11:02 AM Airway Performed by: Latoya Morillo Authorized by: Nestor Johnston DO Location: OR Urgency: Elective Difficult Airway: No Performed by: resident/[employer] REPRESENTATIVE/AA Preoxygenated with 100% O2: Yes Mask Ventilation: Easy mask Final Airway Type: Endotracheal airway Final Endotracheal Airway: ETT Cuffed: Yes Technique Used: Direct laryngoscopy Insertion Site: Oral Blade Type: Huang Laryngoscope Blade/Videolaryngoscope Renan de Size: 2 ETT Size (mm): 8.0 Cuff at minimum occlusion pressure: Yes Measured from: Lips ETT to Lips (cm): 22 Placement Verified by: CO2 detection, di rect visualization and equal breath sounds Laryngoscopic view: Grade I - full vie w of glottis Number of Attempts at Approach: 1 Prothrombin time with INR (03/01/2020 5:17 AM CDT)Only the most recent of2 resultswithin the time period is included. Prothrombin time 13.7 11.5 - 14.5 [facility] INR 1.0 [facility] Comment: [facility] International Normalized Ratio (INR) is a [facility] monitoring tool for patients who are stable on oral anticoagulant therapy. An INR of 2.0-3.0 is suggested for deep vein thrombosis/pulmonary embolism. Specimen Blood Performing Organization Address [facility] Phon e Number [facility] DEPARTMENT OF PATHOLOGY AND [address] [place] [address] [phone] [address] Type and screen (03/01/2020 5:17 AM CDT) Pathologist Sig nature ABO grouping O [facility] Rh type NEG [facility] Antibody screen (gel) NEG [facility] Specimen Blood Performing Organization Address [facility] Phon e Number [facility] DEPARTMENT OF PATHOLOGY AND [address] [place] [address] [phone] [address] Phosphorus level (03/01/2020 5:17 AM CDT) Pathologist Sig nature Phosphorus 4.1 2.4 - 4.5 mg/dL [facility] L Specimen Blood Performing Organization Address City/[facility]/ZIP [facility] Phon e Number [facility] DEPARTMENT OF PATHOLOGY AND [address] [place] [address] [phone] [address] Parathyroid hormone (03/01/2020 5:17 AM CDT) Pathologist Sig nature PTH 34 15 - 65 pg/mL [facility] Specimen Blood Performing Organization Address City/[facility] Phon e Number [facility] DEPARTMENT OF PATHOLOGY AND [address] [place] [address] [phone] [address] Albumin level (03/01/2020 5:17 AM CDT) Pathologist [facility] Albumin 3.4 (L) 3.5 - 5.0 g/dL [facility] Specimen Blood Performing Organization Address [facility] Phon e Number [facility] DEPARTMENT OF PATHOLOGY AND [address] [place] [address] 0 [place] [address] COVID-19 qualitative PCR (02/29/2020 4:00 PM CDT) Pathologist [facility] Interpretation Negative results do not prec lude 2019-nCoV infection and should not be used as the sole basis for treatment or other patient management decisions. Negative results must be combined with clinical observations, patient history, and epidemiological ROBIN information. [facility] COVID-19 qualitative Not-Detected Not-Detecte [facility] PCR result d [facility] COVID19 qualitative See link below for [facility] PCR PDF Lab [facility] ReportComment: Case HOSPITAL Number: [id number] Specimen Performing Organization Address [facility] Phon e Number [facility] DEPARTMENT OF PATHOLOGY AND [address] [place] [address] Partial thromboplastin time, activated (02/29/2020 5:30 AM CDT)Only the most recent of2 resultswithin the time period is included. Pathologist [facility] PTT 32.6 23.0 - 36.0 [facility] Comment: [facility] PTT therapeutic range for unfractionated heparin is 61.0-112.0 seconds which corresponds to Anti-Xa 0.3-0.7 U/ml. Specimen Blood Performing Organization Address City/[facility] Phon e Number [facility] DEPARTMENT OF PATHOLOGY AND [address] [place] [address] 0 [place] [address] Urine culture (02/28/2020 9:25 PM CDT) [facility] Urine culture No growth after 24 hours [facility] isolate Comment: HOSPITAL Specimen Information Specimen Source: Urine Specimen Site: Clean catch Specimen Urine Performing Organization Address [facility] Phon e Number [facility] DEPARTMENT OF PATHOLOGY AND [address] [place] [address] [phone] [address] Hemoglobin A1c (02/28/2020 8:00 PM CDT) Hemoglobin A1C 10.5 (H) 4.0 - 5.6 % [facility] Comment: HOSPITAL HbA1c cutoffs for diagnosing diabetes: 4.0% - 5.6% = normal 5.7% - 6.4% = increased risk for diabetes (prediabetes )9 >=6.5% = diabetes9 Goals for glycemic control (ADA 2016) < 7.0% Target for non adults with diabetes. More or less stringent targets may be appropriate for individual patients. <7.5% Target for Children and adolescents with type 1 diabetes. Specimen Blood Performing Organization Address [facility] Phon e Number [facility] DEPARTMENT OF PATHOLOGY AND [address] [place] [phone] [address] Urinalysis screen and microscopy, with reflex to culture (02/28/2020 7:23 PM CDT) Pathologist Sig nature Specimen site Clean catch [facility] Color, UA Straw [facility] Appearance, UA Clear [facility] Specific gravity, 1.003 1.001 - 1.035 [facility] pH, UA 6.0 5.0 - 8.5 [facility] Protein, UA Negative Negative [facility] Glucose, UA Negative Negative [facility] Ketones, UA Negative Negative [facility] Bilirubin, UA Negative Negative [facility] Blood, UA Large (A) Negative [facility] Nitrite, UA Negative Negative [facility] Urobilinogen, UA <2.0 <2.0 [facility] Leukocyte esterase, Small (A) Negative [facility] WBC, UA 9 (H) 0 - 1 /HPF [facility] RBC, UA <1 0 - 5 /HPF [facility] Bacteria, UA Few None seen [facility] Yeast, UA None seen [facility] Yeast with None seen [facility] pseudohyphae, HOSPITAL Specimen Urine Performing Organization Address City/[facility] Phon e Number [facility] DEPARTMENT OF PATHOLOGY AND [address] [place] [address] [phone] [address] Creatinine level (02/28/2020 7:20 PM CDT) Pathologist Sig nature Creatinine 1.45 (H) 0.70 - 1.20 mg/dL [facility] Specimen Blood Performing Organization Address City/[facility] Phon e Number [facility] DEPARTMENT OF PATHOLOGY AND [address] [place] [address] [phone] [address] ECG 12 lead (02/28/2020 7:05 PM CDT) Pathologist Sig nature Ventricular rate 68 [facility] Atrial rate 68 [facility] CO interval 204 [facility] QRSD interval 100 [facility] QT interval 374 [facility] QTC interval 397 [facility] P axis 1 25 [facility] QRS axis 1 17 [facility] T wave axis 7 [facility] MUSE EKG impression Normal sinus [facility] MUSE rhythm-- Specimen Narrative Performed At This result has an attachment that is no t available. Performing Organization Address City/[facility] Phon e Number [facility] MUSE [address] [place] [id number] Uric acid level (02/28/2020 6:05 PM CDT) Pathologist Sig nature Uric acid 14.4 (H) 3.4 - 7.0 mg/dL [facility] L Specimen Blood Performing Organization Address City/[facility]/ZIP Code Phon e Number [facility] DEPARTMENT OF PATHOLOGY AND [address] [place] [address] [phone] [address] Lactic acid level (02/28/2020 6:05 PM CDT) Pathologist Sig nature Lactic acid 2.2 0.5 - 2.2 mmol/L [facility] Specimen Blood Performing Organization Address City/[facility]/ZIP Code Phon e Number [facility] DEPARTMENT OF PATHOLOGY AND [address] [place] [address] [phone] [address] Comprehensive metabolic panel (02/28/2020 6:05 PM CDT) Sodium 141 135 - 148 [facility] mEq/L [facility] Potassium 3.6 3.5 - 5.0 [facility] mEq/L [facility] Chloride 102 98 - 112 [facility] mEq/L [facility] CO2 22 (L) 24 - 31 mEq/L [facility] Anion gap 17@ANIO (H) 7 - 15 mEq/L [facility] BUN 14 6 - 20 mg/dL [facility] Creatinine 1.44 (H) 0.70 - 1.20 [facility] mg/dL [facility] Glucose 155 (H) 65 - 99 mg/dL [facility] Calcium 9.8 8.3 - 10.2 [facility] mg/dL [facility] Protein 7.3 6.3 - 8.3 [facility] Comment: g/dL [facility] [place] 4.6-7.0 g/dL 1 week 4.4-7.6 g/dL 7 months-1year 5.1-7.3 g/dL 1-2 years 5.6-7.5 g/dL >3 years 6.0-8.0 g/dL 18-150 6.3-8.3 g/dL Albumin 3.5 3.5 - 5.0 [facility] g/dL HOSPITAL A/G ratio 0.9 0.7 - 3.8 [facility] Alkaline phosphatase 83 40 - 129 U/L [facility] AST 27 10 - 50 U/L [facility] ALT 31 5 - 50 U/L [facility] Total bilirubin 0.3 0.0 - 1.2 [facility] mg/dL HOSPITAL Specimen Blood Performing Organization Address City/[facility]/ZIP Code Phon e Number [facility] DEPARTMENT OF PATHOLOGY AND [address] [place], [place] [phone] GENOMIC MEDICINE [address] [address] [address] Abd/Pelvic External Study (02/28/2020 12:13 PM CDT) Specimen Narrative Performed At This exam was not acquired at a [facility] t facility and has not been [facility] interpreted by a [facility] Provider. T he exam was imported into our imaging system. Performing Organization Address City/State/ZIP Code Phon e Number [facility] [address] [place] [address] after 08/21/2019 Advance Directives For more information, please contact: [phone] Type Date Recorded Patient Video Editing Internship Explanati on Advance Directives, Living Will and Medical Power of Vegetable Grower
--- OUTSIDE RECORDS SUMMARY | 2020-08-21 11:42 | XMS REPORT | Clinical Summary ---
:1985 Author Organization [facility] Address [address] [place] [id number] Care Team Providers Name Role Phone Ghada [...] Not on file Implants Implanted Type Area Transfer Professor Device Shelf Model / Identifier Expiration Serial / Lot Date Set Stent Injection 6x28cm [id number] - [id number] Stents-Pe NELIA TON 10/17/2017 [id number] / Implanted: Qty: 1 on 02/03/2016 by Xochitl Almonte MD at [facility] / [id number] Results Not on fileafter 08/21/2019 Insurance Payer Benefit Plan / Subscriber ID Effective Dates Phone Addre ss Type Group HUMANA - MGD HUMANA HMO POS [id number] 2014-Present HMO/POS CARE
--- OUTSIDE RECORDS SUMMARY | 2020-08-21 11:42 | XMS REPORT | Continuity of Care Document ---
:1985 Author Organization [facility] t Address [address] [place] [address] Care Team Providers Name Role Phone Ghada Primary Care Physician Aisha MCKEON Attending Clinician Lalit Marie MD Attending Clinician Phong MCKEON Attending Clinician Tung Christian MD Attending Clinician Preston CALDERON Attending Clinician Santiago KAUFFMAN Attending Clinician Elliot MCKEON Attending Clinician Miguel MCKEON Attending Clinician REINIER Admitting Clinician Unavailable Payers Payer Name Policy Type Policy Effective Date Expiration Date Sour ce Number BCBSBCBS OUT OF [id number] [facility] Sikhism 96 2017-Pres entPPO Problems Condition Condition Condition Status Onset Resolution Last Treating Co mments Source Name Details Category Date Date Treatment Clinician Date Hydronephr Hydronephr Disease Active [place] osis with osis with 6-14 Meth angelina urinary urinary 00:00: st obstructio obstructio 00 n due to n due to renal renal calculus calculus Type 2 Type 2 Disease Active [place] diabetes diabetes 6-14 Method i mellitus, mellitus, 00:00: st without without 00 long-term long-term current current use of use of insulin insulin Gout Gout Disease Active [place] 6-14 Methodi 00:00: st 00 Hydronephr Hydronephr Disease Active H maribellaci osis osis 6-14 Methodi concurrent concurrent 00:00: st with and with and 00 due to due to calculi of calculi of kidney and kidney and ureter ureter 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 00:00: st 00 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 4-06 Me thodi gout gout 00:00: st involving involving 00 toe of toe of left foot left foot without without tophus tophus Fall (on) Fall (on) Disease Active Cheryle ston (from) (from) 1-12 [facility] other other 00:00: st stairs and stairs and 00 steps, steps, initial initial encounter encounter Hip Hip Disease Active [place] injury, injury, 12 Methodi left, left, 00:00: st initial initial 00 encounter encounter Rash and Rash and Disease Active [place] nonspecifi nonspecifi 1-12 Me thodi c skin c skin 00:00: st eruption eruption 00 Depressed Depressed Disease Active Cheryle stokeely mood mood 6-13 Methodi 00:00: st 00 Disease Active 2015-09 [place] (ankylosin (ankylosin 0-14 Me thodi g g 00:00: st spondyliti spondyliti 00 s) s) Encounter Encounter Disease Active 2015-09 Cheryle aguero for for 0-14 Methodi long-term long-term 00:00: st (current) (current) 00 use of use of high-risk high-risk medication medication Hyperurice Hyperurice Disease Active 2015-09 H suni denzel denzel 0-14 Methodi 00:00: st 00 Nephrolith Nephrolith Disease Active 2015-09 H maribellaci iasis iasis 0-14 Methodi 00:00: st 00 Renal Renal Disease Active 2015-09 [place] insufficie insufficie 0-14 Me thodi ncy ncy 00:00: st 00 Fatigue Fatigue Disease Active 2015-09 [place] 0-14 Methodi 00:00: st 00 Obesity Obesity Disease Active 2015-09 [place] (BMI (BMI 0-14 Methodi 30-39.9) 30-39.9) 00:00: st 00 Acute Acute Disease Active [place] right right 8-13 Methodi flank pain flank pain 00:00: st 00 Calculus Calculus Disease Active [place] of urinary of urinary 8-13 Me thodi bladder bladder 00:00: st 00 Leukocytos Leukocytos Disease Active H suni is is 8-13 Methodi 00:00: st 00 Kidney Kidney Disease [facility] Allergies, Adverse Reactions, Alerts Allergy Allergy Status Severity Reaction(s) Onset Inactive Treating Comm ents Source Name Type Date Date Clinician Sulfa Propensi Active THROAT [place] (Sulfona ty to 02-22 SWELL Methodi mide adverse 00:00: st Antibiot reaction 00 ics) s to drug Sulfa Drug [facility]aphylaxis [facility]iot 00 [facility] ics) Family History Family Member Diagnosis Comments Start Date Stop Date Source Natural father Diabetes [facility] thodist Natural mother No Known Problems Cheryle ston Sikhism Paternal grandfather Diabetes [place] [facility] Social History Social Habit Start Date Stop Date Quantity Comments Source History of tobacco Chews Tobacco [facility] - use [facility] Sex Assigned At [facility] ethodi Cigarettes smoked 2020-03-03 2020-03-03 [place] Sikhism current (pack per 00:00:00 00:00:00 day) - Reported Cigarette 2020-03-03 2020-03-03 [place] Method ist pack-years 00:00:00 00:00:00 Tobacco use and 2020-03-03 2020-03-03 Never used [facility] ethodist exposure 00:00:00 00:00:00 Alcohol intake 2020-03-03 2020-03-03 Current drinker [place] [facility] 00:00:00 00:00:00 of alcohol (finding) Tobacco Comment 2016-02-23 2016-02-23 quit 02/06/16 [place] [facility] 00:00:00 00:00:00 Alcohol Comment 2016-02-23 2016-02-23 rarely [facility] ethodist 00:00:00 00:00:00 Smoking Status Start Date Stop Date Source Former smoker 2020-03-03 00:00:00 2020-03-03 00:00:00 [place] Sikhism Current every day 2016-02-03 00:00:00 [facility] Medications Ordered Filled Start Stop Current Ordering Indication Dosage Frequency Signature Comments Components Source Medication Medication Date Date Medication? Clinician (SIG) Name Name tamsulosin 2020- No .4mg QD Take 1 [place] (FLOMAX) 6-18 07-18 capsule [facility] 0.4 mg 00:00: 23:59 (0.[address] capsule 00 :00 total) by mouth daily for 30 days. certolizuma 2020-0 Yes 200mg Q14D Inject 200 [place] b pegoL 6-17 mg under [facility] (CIMZIA) 14:05: the skin st 400 mg/2 mL 05 every 14 (200 mg/mL (fourteen) x 2) days. syringe kit pot,sodium 2020-0 Yes 15mL Q.5D Take 15 mL [place] citrate-cit 6-17 by mouth Meth angelina everardo acid 00:00: every 12 st (TRICITRATE 00 (twelve) S) hours. 550-500-334 mg/5 mL solution pot,sodium 2020-0 2020- No 15mL Q.25D Take 15 mL [place] citrate-cit 6-17 -17 by mouth 4 M ethodi everardo acid 00:00: 00:00 (four) st (TRICITRATE 00 :00 times a S) day with 550-500-334 meals and mg/5 mL nightly solution for 30 days. allopurinoL 2019-0 Yes 600mg QD Take 600 [place] (ZYLOPRIM) 3-16 mg by Methodi 300 MG 00:00: mouth st tablet 00 daily. CIMZIA 400 2018-09 2020- No INJECT [place] mg/2 mL -18 03-17 400MG (2 Method[facility] (200 mg/mL 00:00: 23:59 SYRINGES) s t x 2) 00 :00 SUBCUTANEO syringe kit USLY EVERY 4 WEEKS DIRECTED baclofen Yes Leukocytosi TAKE 1 TO [place] (LIORESAL) 1-03 s, 2 TABLETS Meth angelina 10 MG 00:00: unspecified BY MOUTH s t tablet 00 type AT BEDTIME FOR MUSCLE SPASMS Vital Signs Vital Name Observation Time Observation Value Comments Source Systolic blood 2020-03-02 11:47:31 182 mm[Hg] [place] [facility] pressure Diastolic blood 2020-03-02 11:47:31 94 mm[Hg] [place] Sikhism pressure Heart rate 2020-03-02 11:47:31 87 /min Toney Gilmore Body temperature 2020-03-02 11:47:31 35.5 Gauri [place] [facility] Oxygen saturation in 2020-03-02 11:47:31 98 /min Toney Gilmore Arterial blood by Pulse oximetry Respiratory rate 2020-03-02 07:58:31 17 /min [place] [facility] Body height 2020-03-01 05:05:38 177.8 cm Toney Gilmore Body weight 2020-03-01 05:05:38 116.937 kg Toney Gilmore BMI 2020-03-01 05:05:38 36.99 kg/m2 Toney Gilmore Procedures Procedure Date / Time Performing Clinician Source Performed POC GLUCOSE 2020-03-02 12:35:00 Dominique Christian BETA HYDROXYBUTYRATE 2020-03-02 09:37:00 Elijah Leonard POC GLUCOSE 2020-03-02 08:17:00 Dominique Christian HC COMPLETE BLD COUNT 2020-03-02 05:00:00 Johana Zarate W/AUTO DIFF BASIC METABOLIC PANEL 2020-03-02 05:00:00 Johana Zarate ESTIMATED GFR 2020-03-02 05:00:00 Johana Zarate POC GLUCOSE 2020-03-01 16:53:00 Dominique Christian POC GLUCOSE 2020-03-01 13:05:00 Dominique Christian SURGICAL PATHOLOGY REQUEST 2020-03-01 12:58:00 Shan Christian FL RENAL STENTOGRAM 2020-03-01 12:20:00 Johana Zarate CALCULI ANALYSIS WITH 2020-03-01 11:43:00 Dominique Christian PHOTO Tung AL AN ELECTIVE 2020-03-01 11:02:37 Latoya Morillo ENDOTRACHEAL AIRWAY Sara CYSTO, URETEROSCOPY 2020-03-01 10:48:00 Johana Zarate PROTHROMBIN TIME WITH INR 2020-03-01 05:17:00 Linus Larose Sikhism PARATHYROID HORMONE 2020-03-01 05:17:00 Graf Silvaflorin [place] [facility] Fatuma Gaffney HC COMPLETE BLD COUNT 2020-03-01 05:17:00 Elijah Leonard Sikhism W/AUTO DIFF BASIC METABOLIC PANEL 2020-03-01 05:17:00 Elijah Leonard Sikhism PHOSPHORUS LEVEL 2020-03-01 05:17:00 Elijah Leonard Met hodist ALBUMIN LEVEL 2020-03-01 05:17:00 Magdalenolzia Elijahlissy [facility] Meth odist ESTIMATED GFR 2020-03-01 05:17:00 Dominique Christian TYPE AND SCREEN 2020-03-01 05:17:00 Johana Zarate odneel CALCULI ANALYSIS WITH 2020-02-29 17:35:00 Johana Zarate PHOTO POC GLUCOSE 2020-02-29 16:49:00 Dominique Christian COVID-19 QUALITATIVE PCR 2020-02-29 16:00:00 Elijah Leonard POC GLUCOSE 2020-02-29 11:37:00 Dominique Christian POC GLUCOSE 2020-02-29 07:51:00 Dominique Christian HC COMPLETE BLD COUNT 2020-02-29 05:30:00 Maik Richmond Sikhism W/AUTO DIFF PARTIAL THROMBOPLASTIN 2020-02-29 05:30:00 Linus Larose Sikhism TIME (PTT) BASIC METABOLIC PANEL 2020-02-29 04:00:00 Maik Richmond Sikhism ESTIMATED GFR 2020-02-29 04:00:00 Moraima Darling Met hodneel URINE CULTURE 2020-02-28 21:25:00 Moraima Darling Met hodist PROTHROMBIN TIME WITH INR 2020-02-28 20:10:00 Maik Richmond Sikhism PARTIAL THROMBOPLASTIN 2020-02-28 20:10:00 Syal, Samridhi [place] [facility] TIME (PTT) HC COMPLETE BLD COUNT 2020-02-28 20:10:00 Maik Richmond Sikhism W/AUTO DIFF HEMOGLOBIN A1C 2020-02-28 20:00:00 Yi Maik Toney Meth odist POC GLUCOSE 2020-02-28 19:40:00 Phong Moraima [facility] Met hodist URINALYSIS SCREEN AND 2020-02-28 19:23:00 Maik Richmond Sikhism MICROSCOPY, WITH REFLEX TO CULTURE CREATININE LEVEL 2020-02-28 19:20:00 Moraima Darling Me thodist ESTIMATED GFR 2020-02-28 19:20:00 Phil Darlinganna [place] Met hodist ECG 12-LEAD 2020-02-28 19:05:13 Yi Maik Toney Meth odist COMPREHENSIVE METABOLIC 2020-02-28 18:05:00 Maik Richmond Sikhism PANEL LACTIC ACID LEVEL 2020-02-28 18:05:00 Yi Simreji [place] Me thodist URIC ACID LEVEL 2020-02-28 18:05:00 Yi Simreji [facility] Meth odist ESTIMATED GFR 2020-02-28 18:05:00 [facility] Moraima [facility] Met hodneel CT ABD/PELVIC EXTERNAL 2020-02-28 12:13:00 Johana Zarate on Sikhism STUDY Plan of Care Planned Activity Planned Date Details Comments Source Future Scheduled 2020-04-16 INFLUENZA VACCINE [place] [facility] Test 00:00:00 [code = INFLUENZA VACCINE] Future Scheduled 1997 DIABETES: RETINAL EYE [place] [facility] Test 00:00:00 EXAM [code = DIABETES: RETINAL EYE EXAM] Future Scheduled 1997 DIABETIC FOOT EXAM [place] [facility] Test 00:00:00 [code = DIABETIC FOOT EXAM] Future Scheduled 1997 URINE MICROALBUMIN [place] [facility] Test 00:00:00 [code = URINE MICROALBUMIN] Encounters Start End Encounter Admission Attending Care Care Encounter Source Date/Time Date/Time Type Type Clinicians Facility Department ID 2020-02-28 2020-03-02 [facility], [facility] 089 [id number] [place] 00:00:00 00:00:[address] DOM[address] Results Test Description Test Time Test Comments Results Result Comments Source Calculi analysis with photo 2020-03-10 10:38:15 Test Item Value Reference Range Interpretation Comme nts Calculi mass (test code = 9 mg 3154-2) Calculi number (test code = 1 9800-4) Calculi size (test code = 1 to 4 mm 9802-0) Calculi descrption (test See Note Spe cimen consists of a single, code = 34345-2) small,ying, i rregular calculus. Calculi composition (test See Note Ca lculi composed primarily of code = 9795-6) uric acid.INT ERPRETIVE INFORMATION: Ca lculi (Stone) analysisCalculi are the products of phy siological processes that yield crystalline com pounds in a matrix of biolo gical compounds and blood. Mat eveline components are not reporte d. The clinically sign ificant crystalline com ponents identified in c alculi specimens are reported. Gross description may not be consistent with composition determined by F TIR analysis. EER calculi (stone) analysis See Note Access [employer] Enhanced Report and photo (test code = using either link below: 78679-6) -Direct access: [email or web address] -Enter Username, Passw ord: [email or web address] Username: [email or web address] w Password: [email or web address] by [employer],[address] [place] [address] myz .Cinnamon, Benja Donald MD, Lab. Director CARLOS (test code = CARLOS) [id number] Renal Stone [facility] [id number] 09:20:34 Test Item Value Reference Range Interpretation Comments Case number (test [id number] code = 8374141) Surgical pathology See link below for PDF report (test code = Lab Report 2255) Result status (test This is Supplemental code = 5046878) Report for [id number] [facility] [id number] 12:52:41 Test Item Value Reference Range Interpretation Comments POC glucose (test code = 184 mg/dL 65-99 H Ope rator Name: Galilea [id number] Doreen Cordobaice ID : [id number] able : [facility] Notified field clerk Interpretation (test Abnormal code = 50726-4) [place] MethodistBeta [id number] 11:31:49 Test Item Value Reference Range Interpretation Comments Beta hydroxybutyrate (test code = 0.06 mmol/L 0.02-0.27 6873-4) [place] MethodistCT Abd/Pelvic External [id number] 11:28:25This exam was not acquired at a Sikhism facility and has not been interpreted by a Sikhism Provider. The exam was imported into our imaging system.[place] MethodistBasic metabolic [id number] 07:11:13 Test Item Value Reference Range Interpretation Comments Sodium (test code = 2951-2) 140 135- 148 mEq/L Potassium (test code = 2823-3) 4.1 3.5- 5.0 mEq/L Chloride (test code = 2075-0) 103 98- 112 mEq/L CO2 (test code = 2027-9) 20 24- 31 mEq/L L Anion gap (test code = 90755-3) 17@ANIO 7- 15 mEq/L H BUN (test code = 3094-0) 17 mg/dL 6-20 Creatinine (test code = 2160-0) 1.70 mg/dL 0.7-1.2 H Glucose (test code = 2345-7) 296 mg/dL 65-99 H Calcium (test code = 04948-3) 9.3 mg/dL 8.3-10.2 Lab Interpretation (test code = Abnormal 25686-0) [place] MethodistEstimated [id number] 07:11:13 Test Item Value Reference Range Interpretation Comments Estimated GFR (test 52 mL/min/1.73 m2 A Leslie parker Units code = 5488) InterpretationG 1 >=90 Emilee l or highG2 60-89 Mildly decrease dG3a 45-59 Mil dly to moderately decr mkuxuS7u 30-44 Moderately to s everely decreasedG4 15-29 Severe ly decreasedG5 <15 Kidney uydy lureThe eGFR was calcul ated using the Chron Kidney Disease Epidemiology Collaboration ( CKD-EPI) equation. Interpretation is based on recommendati ons of the National [facility]-Kidn ey Disease Outcome s Quality Initiat nanette (NKF-KDOQI) pub lished in 2013. Lab Interpretation Abnormal (test code = 08836-0) [place] SikhismCBC with platelet and [id number] 06:49:44 Test Item Value Reference Range Interpretation Comments WBC (test code = 86559-0) 11.31 4.50- 11.00 k/uL H RBC (test code = 83590-6) 4.99 m/uL 4.4-6 HGB (test code = 718-7) 14.3 g/dL 14-18 HCT (test code = 4544-3) 44.2 % 41-51 MCV (test code = 787-2) 88.6 fL 82-100 MCH (test code = 785-6) 28.7 pg 27-34 MCHC (test code = 786-4) 32.4 g/dL 31-37 RDW - SD (test code = 43.2 fL 37-55 78927-2) MPV (test code = 28572-5) 9.6 fL 8.8-13.2 Platelet count (test code 277 150- 400 k/uL = 78438-2) Nucleated RBC (test code 0.00 /100 WBC = 97609-5) Neutrophils (test code = 70.2 % 39-69 H 58229-0) Lymphocytes (test code = 18.7 % 25-45 L 91528-4) Monocytes (test code = 9.5 % 0-10 19921-2) Eosinophils (test code = 1.0 % 0-5 50291-8) Basophils (test code = 0.3 % 0-1 25254-0) Immature granulocytes 0.3 % 0-1 "Immat ure (test code = 01027-2) granul ocytes" (promyelocytes, myelocytes, metamyelocytes) Lab Interpretation (test Abnormal code = 70539-1) Toney Artis Renal [id number] 15:27:28Hm Interface, Radiology Results - 03/01/2020 3:30 PM CDTEXAMINATION: FL RENAL STENTOGRAMCL INICAL HISTORY:COMPARISON: 02/28/2020 external studyTECHNIQUE:Renal stentogramIMPRESSION:1.Please refer to clinical note on the same date.[facility] [id number] 11:02:37Latoya Morillo 03/01/2020 11:02 AMAirwayPerformed by: Latoya MorilloAuthorized by: Nestor Johnston DO Location: ORUrgency: ElectiveDifficult Airway: No Performed by: resident /DIRECTOR OF DIGITAL TECHNOLOGY/AAPreoxygenated with 100% O2: Yes Mask Ventilation: Easy maskFinal Airway Type: Endotracheal airwayFinal Endotracheal Airway: ETTCuffed: Yes Technique Used: Direct laryngoscopyInsertion Site: OralBlade Type: MillerLaryngoscope Blade/Videolaryngoscope Blade Size: 2ETT Size (mm): 8.0Cuff at minimum occlusion pressure: Yes Measured from: LipsETT to Lips (cm): 22Placement Verified by: CO2 detection, direct visualization and equal breath sounds Laryngoscopic view: Grade I - full viewof glottisNumber of Attempts at Approach: 1[facility] MethodistType and [id number] 08:49:00 Test Item Value Reference Range Interpretation Comments ABO grouping (test code = 883-9) O Rh type (test code = 66174-3) NEG Antibody screen (gel) (test code = NEG 890-4) [place] MethodistParathyroid [id number] 07:19:32 Test Item Value Reference Range Interpretation Comments PTH (test code = 2731-8) 34 pg/mL 15-65 [facility] MethodistAlbumin [id number] 07:14:34 Test Item Value Reference Range Interpretation Comments Albumin (test code = 1751-7) 3.4 g/dL 3.5-5 L Lab Interpretation (test code = Abnormal 42893-4) [place] MethodistPhosphorus [id number] 07:14:34 Test Item Value Reference Range Interpretation Comments Phosphorus (test code = 2777-1) 4.1 mg/dL 2.4-4.5 [place] MethodistProthrombin time with [id number] 07:03:01 Test Item Value Reference Range Interpretation Comments Prothrombin time (test 13.7 11.5- 14.5 sec code = 5902-2) INR (test code = 1.0 The Interna tional 28416-4) Normalized Rati o (INR) is a therapeutic m onitoring tool for patien ts who are stable on oral anticoagulant t herapy. An INR of 2.0-3.0 is suggested for d eep vein thrombosis/pulm onary embolism. Toney GilmoreUrine [id number] 22:32:44 Test Item Value Reference Range Interpretation Comments Urine culture No growth Specimen isolate (test after 24 InformationSpe cimen code = 91103-3) hours Source: Urin eSpecimen Site: Clean cat [facility] LouiseistCOVID-19 qualitative [id number] 20:02:15 Test Item Value Reference Range Interpretation Comments Interpretation (test Negative results do code = 3493981) not preclude 2019-nCoV infection and should not be used as the sole basis for treatment or other patient management decisions. Negative results must be combined with clinical observations, patient history, and epidemiological information. COVID-19 qualitative Not-Detected Not-Detected PCR result (test code = 46649-0) COVID-19 qualitative See link below for C ase Number: PCR (test code = PDF Lab Report [id number]) Toney GilmorePartial thromboplastin time, [id number] 06:58:24 Test Item Value Reference Range Interpretation Comments PTT (test code = 32.6 23.0- 36.0 [place] [address]-8) unfractionated heparin is61.0-112.0 se conds which corresponds to Anti-Xa0.3-0.7 U/ml. Toney MethodistECG 12 [id number] 22:06:47 Test Item Value Reference Range Interpretation Comments Ventricular rate (test 68 code = 253) Atrial rate (test code = 68 255) AL interval (test code = 204 266) QRSD interval (test code 100 = 260) QT interval (test code = 374 264) QTC interval (test code = 397 265) P axis 1 (test code = 25 267) QRS axis 1 (test code = 17 268) T wave axis (test code = 7 270) EKG impression (test code Normal sinus = 273) rhythm--Electronical ly Signed By Shemar Early MD ([id number]) on 02/28/2020 10:06:45 PM Toney GilmoreUric acid [id number] 21:48:10 Test Item Value Reference Range Interpretation Comments Uric acid (test code = 3084-1) 14.4 mg/dL 3.4-7 H Lab Interpretation (test code = Abnormal 52210-0) [place] MethodistHemoglobin [id number] 21:47:12 Test Item Value Reference Range Interpretation Comments Hemoglobin A1C (test 10.5 % 4-5.6 H HbA1c c utoffs for code = 74396-5) diagnosing diabetes:4.0% - 5.6% = normal5.7% - 6.4% = increased risk for diabetes (prediabetes)9> =6.5% = khxfqcmz5Myfu s for glycemic contro l (ADA 2016)< 7.0% Ta rget for non adults with trino betes. More or less stringent targe ts may be appropriate for individual anel ents. <7.5% Target for Children and adolescents wit h type 1 diabetes. Lab Interpretation (test Abnormal code = 06501-8) [place] MethodistComprehensive metabolic [id number] 21:36:45 Test Item Value Reference Range Interpretation Comments Sodium (test code = 141 135- 148 mEq/L 2951-2) Potassium (test code = 3.6 3.5- 5.0 mEq/L 2823-3) Chloride (test code = 102 98- 112 mEq/L 5-0) CO2 (test code = 2027-9) 22 24- 31 mEq/L L Anion gap (test code = 17@ANIO 7- 15 mEq/L H 25861-1) BUN (test code = 3094-0) 14 mg/dL 6-20 Creatinine (test code = 1.44 mg/dL 0.7-1.2 H 2160-0) Glucose (test code = 155 mg/dL 65-99 H 2345-7) Calcium (test code = 9.8 mg/dL 8.3-10.2 04664-4) Protein (test code = 7.3 g/dL 6.3-8.3 -[place] n 2885-2) 4.6-7.0 g/dL1 week 4.4-7 .6 g/dL7 months-1y ear 5.1-7 .3 g/dL1-2 years 5.6-7 .5 g/dL>3 years 6.0-8 .0 g/pS51-308 6.3-8 .3 g/dL Albumin (test code = 3.5 g/dL 3.5-5 1751-7) A/G ratio (test code = 0.9 0.7-3.8 1759-0) Alkaline phosphatase 83 U/L 40-129 (test code = 6768-6) AST (test code = 1920-8) 27 U/L 10-50 ALT (test code = 1742-6) 31 U/L 5-50 Total bilirubin (test 0.3 mg/dL 0-1.2 code = 1975-2) Lab Interpretation (test Abnormal code = 01737-3) [place] MethodistCreatinine [id number] 21:35:08 Test Item Value Reference Range Interpretation Comments Creatinine (test code = 2160-0) 1.45 mg/dL 0.7-1.2 H Lab Interpretation (test code = Abnormal 57634-0) [place] MethodistLactic acid [id number] 21:32:14 Test Item Value Reference Range Interpretation Comments Lactic acid (test code = 46012-2) 2.2 mmol/L 0.5-2.2 [place] MethodistUrinalysis screen and microscopy, with reflex to culture 2020-02-28 21:26:29 Test Item Value Reference Range Interpretation Comments Specimen site (test code = Clean catch 1372838) Color, UA (test code = 5778-6) Straw Appearance, UA (test code = Clear 5767-9) Specific gravity, UA (test code = 1.003 1.001-1.035 5811-5) pH, UA (test code = 5803-2) 6.0 5.0-8.5 Protein, UA (test code = 33490-1) Negative Negative Glucose, UA (test code = 13430-9) Negative Negative Ketones, UA (test code = 2514-8) Negative Negative Bilirubin, UA (test code = Negative Negative 5770-3) Blood, UA (test code = 5794-3) Large Negative A Nitrite, UA (test code = 5802-4) Negative Negative Urobilinogen, UA (test code = <2.0 <2.0 54625-3) Leukocyte esterase, UA (test code Small Negative A = 5799-2) WBC, UA (test code = 5821-4) 9 0- 1 /HPF H RBC, UA (test code = 62318-9) <1 0- 5 /HPF Bacteria, UA (test code = Few None seen 46994-0) Yeast, UA (test code = 91186-6) None seen Yeast with pseudohyphae, UA (test None seen code = 02701-3) Lab Interpretation (test code = Abnormal 61054-2) Toney Gilmore
--- NOTE | 2020-08-21 12:28 | ER ---
Nurse's Notes [facility] Name: Seble Potter II Age: 35 yrs Sex: Male : 1985 Arrival Date: 08/21/2020 Time: 11:51 Bed 13 Private MD: Diagnosis: Zoster [herpes zoster] Presentation: 08/21 11:58 Chief complaint: Patient states: rash to L lateral chest wall that began yesterday. Pt ss states, "I think I have shingles.". Coronavirus screen: Client denies travel out of the [place] in the last 14 days. Ebola Screen: Patient denies exposure to infectious person. Patient denies travel to an Ebola-affected area in the 21 days before illness onset. Initial Sepsis Screen: Does the patient meet any 2 criteria? No. Patient's initial sepsis screen is negative. Does the patient have a suspected source of infection? No. Patient's initial sepsis screen is negative. Risk Assessment: Do you want to hurt yourself or someone else? Patient reports no desire to harm self or others. Onset of symptoms was August 20, 2020. 11:58 Method Of Arrival: Ambulatory ss 11:58 Acuity: KARL 5 ss Historical: - Allergies: 12:01 Sulfa (Sulfonamide Antibiotics); ss - PMHx: 12:01 ankylosing spondilitis; Colitis; Diabetes - NIDDM; DVT; Gout; Kidney stones; ss - PSHx: 12:01 Kidney stents; Lithotripsy; ss - Immunization history:: Adult Immunizations up to date. - Social history:: Smoking status: Patient reports use of chewing tobacco. - Family history:: not pertinent. - Hospitalizations: : No recent hospitalization is reported. Screenin:14 Abuse screen: Denies threats or abuse. Denies injuries from another. Nutritional ec1 screening: No deficits noted. Tuberculosis screening: No symptoms or risk factors identified. Fall Risk None identified. Assessment: 12:14 General: Appears in no apparent distress. comfortable, Behavior is calm, cooperative. ec1 Pain: Complains of pain in left flank Pain currently is 5 out of 10 on a pain scale. Neuro: Level of Consciousness is awake, alert, obeys commands. Cardiovascular: Patient's skin is warm and dry. Respiratory: Respiratory effort is even, unlabored. GI: No signs and/or symptoms were reported involving the gastrointestinal system. : No signs and/or symptoms were reported regarding the genitourinary system. EENT: No signs and/or symptoms were reported regarding the EENT system. Derm: Rash noted that is vesicular, left rib cage area. Musculoskeletal: No deficits noted. Range of motion:. Vital Signs: 11:58 BP 160 / 124; Pulse 72; Resp 15; Temp 97.9(TE); Pulse Ox 99% on R/A; Weight 113.4 kg; Height 5 ft. 10 in. (177.80 cm); 12:38 BP 141 / 100; Pulse 76; Resp 16 S; Pulse Ox 99% on R/A; ec1 11:58 Body Mass Index 35.87 (113.40 kg, 177.80 cm) ED Course: 11:51 Patient arrived in ED. ds1 12:00 Triage completed. ss 12:01 Arm band placed on right wrist. ss 12:02 Jesus Mckeon MD is Attending Physician. rn 12:12 Becca Burns RN is Primary Nurse. ec1 12:14 Patient has correct armband on for positive identification. Bed in low position. ec1 12:39 No provider procedures requiring assistance completed. Patient did not have IV access ec1 during this emergency room visit. Administered Medications: No medications were administered Outcome: 12:28 Discharge ordered by . rn 12:39 Discharged to home ambulatory. ec1 12:39 Condition: good 12:39 Discharge instructions given to patient, Instructed on discharge instructions, follow up and referral plans. Demonstrated understanding of instructions, follow-up care, medications, Prescriptions given X 2. 12:39 Patient left the ED. ec1 Signatures: Phylicia Villegas ds1 Jesus Mckeon MD MD rn Smirch, Shelby, RN RN Becca Burns RN RN ec1
--- NOTE | 2020-08-21 12:28 | EDPHYS ---
Physician Documentation [facility] Name: Seble Potter II Age: 35 yrs Sex: Male : 1985 Arrival Date: 08/21/2020 Time: 11:51 Bed 13 Private MD: ED Physician Jesus Mckeon HPI: 08/21 12:09 This 35 yrs old Male presents to ER via Ambulatory with complaints of Rash rn Rib Pain. 12:09 The patient's rash thought to be caused by an unknown cause. The rash is located on the rn left flank. The rash can be described as erythematous, vesicular. Onset: The symptoms/episode began/occurred yesterday. Associated signs and symptoms: Pertinent positives: itching, Pertinent negatives: fever. Severity of symptoms: At their worst the symptoms were mild in the emergency department the symptoms are unchanged. The patient has not experienced similar symptoms in the past. The patient has not recently seen a physician. Reports rash to left flank/lower thorax, noticed yesterday, no fever, no drainage. . Historical: - Allergies: 12:01 Sulfa (Sulfonamide Antibiotics); ss - PMHx: 12:01 ankylosing spondilitis; Colitis; Diabetes - NIDDM; DVT; Gout; Kidney stones; ss - PSHx: 12:01 Kidney stents; Lithotripsy; ss - Immunization history:: Adult Immunizations up to date. - Social history:: Smoking status: Patient reports use of chewing tobacco. - Family history:: not pertinent. - Hospitalizations: : No recent hospitalization is reported. ROS: 12:09 Constitutional: Negative for fever, chills, and weight loss, Skin: + rash to left rn flank/lower thorax Exam: 12:09 Constitutional: This is a well developed, well nourished patient who is awake, alert, rn and in no acute distress. Skin: Warm, dry, + linear papular and erythematous rash along left lateral/inferior costal margin, does not cross midline. Vital Signs: 11:58 BP 160 / 124; Pulse 72; Resp 15; Temp 97.9(TE); Pulse Ox 99% on R/A; Weight 113.4 kg; ss Height 5 ft. 10 in. (177.80 cm); 12:38 BP 141 / 100; Pulse 76; Resp 16 S; Pulse Ox 99% on R/A; ec1 11:58 Body Mass Index 35.87 (113.40 kg, 177.80 cm) MDM: 12:03 Patient medically screened. rn 12:09 Differential diagnosis: shingles. Data reviewed: vital signs, nurses notes, and as a rn result, I will discharge patient. Counseling: I had a detailed discussion with the patient and/or guardian regarding: the historical points, exam findings, and any diagnostic results supporting the discharge/admit diagnosis, the need for outpatient follow up, to return to the emergency department if symptoms worsen or persist or if there are any questions or concerns that arise at home. Special discussion: I discussed with the patient/guardian in detail that at this point there is no indication for admission to the hospital. It is understood, however, that if the symptoms persist or worsen the patient needs to return immediately for re-evaluation. Administered Medications: No medications were administered Disposition: 08/21/20 12:28 Discharged to Home. Impression: Zoster [herpes zoster]. - Condition is Stable. - Discharge Instructions: Shingles. - Prescriptions for Valtrex 1 g Oral Tablet - take 1 tablet by ORAL route every 8 hours for 7 days; 21 tablet. Medrol (Alex) 4 mg Oral Tablets, Dose Pack - take 1 tablet by ORAL route as directed - follow package instructions; 1 packet. - Medication Reconciliation Form, Thank You Letter, Antibiotic Education, Prescription Opioid Use form. - Follow up: Private Physician; When: As needed; Reason: Recheck today's complaints, Re-evaluation by your physician. - Problem is new. - Symptoms are unchanged. Signatures: Jesus Mckeon MD MD rn Smirch, Shelby, RN RN Becca Burns RN RN ec1 Corrections: (The following items were deleted from the chart) 12:39 12:28 08/21/2020 12:28 Discharged to Home. Impression: Zoster [herpes zoster]. ec1 Condition is Stable. Forms are Medication Reconciliation Form, Thank You Letter, Antibiotic Education, Prescription Opioid Use. Follow up: Private Physician; When: As needed; Reason: Recheck today's complaints, Re-evaluation by your physician. Problem is new. Symptoms are unchanged. rn
== END 2020-08-21 12:39 | disposition home or self-care (01) ==
CPT/HCPCS: 99282

== ENCOUNTER 2021-06-14 22:35 | Emergency (ER) | payer BC, OTHER ==
--- NOTE | 2021-06-14 23:17 | ER ---
Nurse's Notes [facility] Name: Seble Potter II Age: 36 yrs Sex: Male : 1985 Arrival Date: 06/14/2021 Time: 22:35 Bed 13 Private MD: Edgardo Shepard T Diagnosis: SARS-associated coronavirus as the cause of diseases classified elsewhere Presentation: 06/14 22:59 Chief complaint: Patient states: Pt stated, " I was diagnosed with COVID today and he kg told me if my 02 gets bellow 90 to come to the ER and it was 89-90 so I came in.". Coronavirus screen: Vaccine status: Patient reports being unvaccinated. chills, fever, shortness of breath, Client presents with at least one sign or symptom that may indicate coronavirus-19. Standard/surgical mask placed on the client. Provider contacted for isolation considerations. Client reports previous positive COVID test result. Date of collection: June 14, 2021. Ebola Screen: Patient negative for fever greater than or equal to 101.5 degrees Fahrenheit, and additional compatible Ebola Virus Disease symptoms Patient denies exposure to infectious person. Patient denies travel to an Ebola-affected area in the 21 days before illness onset. Initial Sepsis Screen: Does the patient meet any 2 criteria? No. Patient's initial sepsis screen is negative. Does the patient have a suspected source of infection? No. Patient's initial sepsis screen is negative. Risk Assessment: Do you want to hurt yourself or someone else? Patient reports no desire to harm self or others. Onset of symptoms was June 11, 2021. 22:59 Method Of Arrival: Ambulatory kg 22:59 Acuity: KARL 4 kg Triage Assessment: 23:01 General: Appears in no apparent distress. Behavior is calm, cooperative, appropriate kg for age, quiet. Pain: Complains of pain in Generalized. Historical: - Allergies: 23:01 Sulfa (Sulfonamide Antibiotics); kg - Home Meds: 23:01 Baclofen Oral [Active]; kg - PMHx: 23:01 Kidney stones; Gout; DVT; Diabetes - NIDDM; Colitis; ankylosing spondilitis; kg - PSHx: 23:01 None; kg - Immunization history:: Adult Immunizations not up to date, Client reports having NOT received the Covid vaccine. - Social history:: Smoking status: Patient denies any tobacco usage or history of. Screenin:03 Abuse screen: Denies threats or abuse. Denies injuries from another. Nutritional kg screening: No deficits noted. Tuberculosis screening: No symptoms or risk factors identified. Fall Risk None identified. Vital Signs: 22:59 BP 121 / 78; Pulse 102; Resp 20; Temp 99.4(TE); Pulse Ox 99% on R/A; Weight 113.4 kg kg (R); Height 5 ft. 10 in. (177.80 cm) (R); Pain 6/10; 22:59 Body Mass Index 35.87 (113.40 kg, 177.80 cm) kg ED Course: 22:35 Patient arrived in ED. do 22:35 Edgardo Shepard MD is Private Physician. do 23:01 Triage completed. kg 23:03 Patient has correct armband on for positive identification. kg 23:05 Arnaldo Rodrigues [facility] is [facility]. jr8 23:05 Sidney Newberry MD is Attending Physician. jr8 23:16 Edgardo Shepard MD is Referral Physician. jr8 23:42 No provider procedures requiring assistance completed. Patient did not have IV access cw2 during this emergency room visit. 23:43 Patient Pt ambulated with pulses ox detector. Pt maintained 95-99 % on RA. Pt denies cw2 pain. LS CTA. Provider notified. Administered Medications: No medications were administered Outcome: 23:16 Discharge ordered by . jr8 23:43 Discharged to home ambulatory. cw2 23:43 Condition: good 23:43 Discharge instructions given to patient, Instructed on discharge instructions, follow up and referral plans. Demonstrated understanding of instructions, follow-up care. 23:46 Patient left the ED. cw2 Signatures: Arnaldo Rodrigues PA PA jr8 Rosalind Agarwal Kristen, RN RN kg Atif Reyna RN RN cw2
--- NOTE | 2021-06-14 23:17 | EDPHYS ---
Physician Documentation [facility] Name: Seble Potter II Age: 36 yrs Sex: Male : 1985 Arrival Date: 06/14/2021 Time: 22:35 Bed 13 Private MD: Edgardo Shepard T ED Physician Sidney Newberry HPI: 06/15 02:13 This 36 yrs old Male presents to ER via Ambulatory with complaints of Covid jr8 +, Low 02 89-90. 02:13 Patient stated that he was recently diagnosed with COVID. Has home pulse ox and was jr8 told that if he oxygen saturation were to drop below 90 to go to the ED. Patient stated that he had checked his oxygen at home while at rest and read 89%. Stated that he has only had mild shortness of breath. Denies any other symptoms at this time. Historical: - Allergies: 06/14 23:01 Sulfa (Sulfonamide Antibiotics); kg - Home Meds: 23:01 Baclofen Oral [Active]; kg - PMHx: 23:01 Kidney stones; Gout; DVT; Diabetes - NIDDM; Colitis; ankylosing spondilitis; kg - PSHx: 23:01 None; kg - Immunization history:: Adult Immunizations not up to date, Client reports having NOT received the Covid vaccine. - Social history:: Smoking status: Patient denies any tobacco usage or history of. ROS: 06/15 02:13 Eyes: Negative for injury, pain, redness, and discharge, ENT: Negative for injury, jr8 pain, and discharge, Neck: Negative for injury, pain, and swelling, Cardiovascular: Negative for chest pain, palpitations, and edema, Abdomen/GI: Negative for abdominal pain, nausea, vomiting, diarrhea, and constipation, Back: Negative for injury and pain, MS/Extremity: Negative for injury and deformity, Skin: Negative for injury, rash, and discoloration, Neuro: Negative for headache, weakness, numbness, tingling, and seizure. Respiratory: Positive for shortness of breath. Exam: 02:13 Eyes: Pupils equal round and reactive to light, extra-ocular motions intact. Lids and jr8 lashes normal. Conjunctiva and sclera are non-icteric and not injected. Cornea within normal limits. Periorbital areas with no swelling, redness, or edema. ENT: Nares patent. No nasal discharge, no septal abnormalities noted. Tympanic membranes are normal and external auditory canals are clear. Oropharynx with no redness, swelling, or masses, exudates, or evidence of obstruction, uvula midline. Mucous membranes moist. Neck: Trachea midline, no thyromegaly or masses palpated, and no cervical lymphadenopathy. Supple, full range of motion without nuchal rigidity, or vertebral point tenderness. No Meningismus. Cardiovascular: Regular rate and rhythm with a normal S1 and S2. No gallops, murmurs, or rubs. Normal PMI, no JVD. No pulse deficits. Respiratory: Lungs have equal breath sounds bilaterally, clear to auscultation and percussion. No rales, rhonchi or wheezes noted. No increased work of breathing, no retractions or nasal flaring. Abdomen/GI: Soft, non-tender, with normal bowel sounds. No distension or tympany. No guarding or rebound. No evidence of tenderness throughout. Back: No spinal tenderness. No costovertebral tenderness. Full range of motion. Skin: Warm, dry with normal turgor. Normal color with no rashes, no lesions, and no evidence of cellulitis. MS/ Extremity: Pulses equal, no cyanosis. Neurovascular intact. Full, normal range of motion. Neuro: Awake and alert, GCS 15, oriented to person, place, time, and situation. Cranial nerves II-XII grossly intact. Motor strength 5/5 in all extremities. Sensory grossly intact. Vital Signs: 06/14 22:59 BP 121 / 78; Pulse 102; Resp 20; Temp 99.4(TE); Pulse Ox 99% on R/A; Weight 113.4 kg kg (R); Height 5 ft. 10 in. (177.80 cm) (R); Pain 6/10; 22:59 Body Mass Index 35.87 (113.40 kg, 177.80 cm) kg MDM: 23:05 Patient medically screened. [facility] 23:15 Data reviewed: vital signs, nurses notes, and as a result, I will discharge patient. jr8 Data interpreted: Pulse oximetry: on room air is 99 %. Interpretation: normal. Counseling: I had a detailed discussion with the patient and/or guardian regarding: the historical points, exam findings, and any diagnostic results supporting the discharge/admit diagnosis, the need for outpatient follow up, a family practitioner, to return to the emergency department if symptoms worsen or persist or if there are any questions or concerns that arise at home. ED course: At rest was 99% and with ambulation was 95%. No increased work of breathing. Most likely was false reading at home. Did offer the monoclonal antibody infusion but denied at this time. Knows to come back if he were to worsen at any point time.. Administered Medications: No medications were administered Disposition: 06/15 00:25 Co-signature as Attending Physician, Sidney Newberry MD. blair Disposition Summary: 06/14/21 23:16 Discharge Ordered Location: Home jr8 Problem: new jr8 Symptoms: have improved jr8 Condition: Stable jr8 Diagnosis - SARS-associated coronavirus as the cause of diseases classified elsewhere jr8 Followup: jr8 - With: Edgardo Shepard MD - When: 2 - 3 days - Reason: Recheck today's complaints, Continuance of care, Re-evaluation by your physician Discharge Instructions: - Discharge Summary Sheet jr8 - COVID-19 jr8 Forms: - Medication Reconciliation Form jr8 - Thank You Letter jr8 - Antibiotic Education jr8 - Prescription Opioid Use jr8 Signatures: Sidney Newberry MD MD pkl Arnaldo Rodrigues PA PA jr8 Aminta Ramos, RN RN kg
[2021-06-14 23:57] VITALS: BP 121/78; TEMP 99.4; O2SAT 99
== END 2021-06-14 23:46 | disposition home or self-care (01) ==
LOC: ER 22:35
DX: U07.1 COVID-19 (principal); E11.9 Type 2 diabetes mellitus without complications; Z88.2 Allergy status to sulfonamides
CPT/HCPCS: 99281

== ENCOUNTER 2021-06-16 15:11 | Emergency (ER) | payer OTHER ==
[2021-06-16] MEDS ORDERED: CASIRIVIMAB/IMDEVIMAB 10 ML VIAL ONE (17:14)
[2021-06-16] MEDS ORDERED: NA CHLORIDE 0.9% 250 ML ONE (17:15)
--- NOTE | 2021-06-16 17:47 | RAD REPORT ---
EXAM DESCRIPTION: RAD - Chest Single View - 06/16/2021 5:41 pm CLINICAL HISTORY: CHEST PAIN Chest pain. COMPARISON: Chest Single View dated 02/28/2018 FINDINGS: Portable technique limits examination quality. Mild bilateral interstitial lung opacities are present suspicious for viral infection or bronchitis. The heart is normal in size. No displaced fractures.
[2021-06-16 17:48] LABS: Protime INR 1.09
[2021-06-16 17:49] LABS: Absolute Lymphocytes (CBC) 1.4 K/uL (0.7-4.9); Basophils % 0.7 % (0-1.3); Hematocrit 48.5 % (39.6-49.0); MPV 6.7 fL (7.6-11.3); RBC Red Blood Cell Count 5.76 M/uL (4.33-5.43)
[2021-06-16] MEDS ORDERED: NA CHLORIDE 0.9% 1,000 ML ONE (18:10)
[2021-06-16 18:43] LABS: ALT/SGPT 20 U/L (12-78); AST/SGOT 19 U/L (15-37); Albumin 3.9 g/dL (3.4-5.0); Alkaline Phosphatase 89 U/L (45-117); BUN Blood Urea Nitrogen 16 mg/dL (7-18); Bicarbonate 29 mmol/L (21-32); Bilirubin Direct < 0.1 mg/dL (0-0.2); Bilirubin Total 0.3 mg/dL (0.2-1.0); Glucose Level 97 mg/dL (74-106); Magnesium 2.4 mg/dL (1.8-2.4); Potassium 4.2 mmol/L (3.5-5.1); Protein, Total 8.5 g/dL (6.4-8.2); Sodium Level 139 mmol/L (136-145); Troponin (Emerg Dept Use Only) < 0.02 ng/mL (0.0-0.045)
[2021-06-16 18:52] LABS: NT PRO-BNP < 5 pg/mL (<125)
--- NOTE | 2021-06-16 20:03 | RAD REPORT ---
EXAM DESCRIPTION: CT - Chest For Pe Angio - 06/16/2021 7:33 pm CLINICAL HISTORY: Chest pain. Chest pain;SOB COMPARISON: Chest For Pe Angio dated 02/28/2018 TECHNIQUE: CT angiogram of the pulmonary arteries was performed with MIP. All CT scans are performed using dose optimization technique as appropriate and may include automated exposure control or mA/KV adjustment according to patient size. FINDINGS: No evidence of pulmonary thromboembolism. No acute aortic finding demonstrated. Moderate bilateral focal areas pulmonary opacity is noted likely representing underlying COVID-19 inf ection. No significant pericardial or pleural fluid. No concerning bony finding. IMPRESSION: No evidence of pulmonary thromboembolism. Bilateral focal pulmonary opacities are noted likely representing COVID-19 infection.
--- NOTE | 2021-06-16 20:11 | ER ---
Nurse's Notes [facility] Name: Seble Potter II Age: 36 yrs Sex: Male : 1985 Arrival Date: 06/16/2021 Time: 15:13 Bed DIS3 Private MD: Edgardo Shepard T Diagnosis: Pneumonia due to SARS-associated coronavirus Presentation: 06/16 15:18 Chief complaint: Patient states: Tested positive 3 days ago for covid. Covid symptoms ll1 for 6 days. Came in two days ago and the doctor offered him the Regeron infusion. Didn't want the infusion at that time, but wants it now after still feeling bad. Coronavirus screen: Vaccine status: Patient reports being unvaccinated. Client denies travel out of the [place] in the last 14 days. congestion, cough unrelated to allergies, difficulty breathing, shortness of breath, Client presents with at least one sign or symptom that may indicate coronavirus-19. Standard/surgical mask placed on the client. Ebola Screen: Patient denies travel to an Ebola-affected area in the 21 days before illness onset. Initial Sepsis Screen: Does the patient meet any 2 criteria? No. Patient's initial sepsis screen is negative. Does the patient have a suspected source of infection? Yes: Productive cough/pneumonia. Risk Assessment: Do you want to hurt yourself or someone else? Patient reports no desire to harm self or others. Onset of symptoms was June 11, 2021. 15:18 Method Of Arrival: Ambulatory ll1 15:18 Acuity: KARL 3 ll1 Historical: - Allergies: 15:20 Sulfa (Sulfonamide Antibiotics); ll1 - PMHx: 15:20 ankylosing spondilitis; Colitis; Diabetes - NIDDM; DVT; Gout; Kidney stones; ll1 - PSHx: 15:20 None; ll1 - Immunization history:: Client reports having NOT received the Covid vaccine. - Social history:: Smoking status: Patient denies any tobacco usage or history of. Screenin:45 Abuse screen: Denies threats or abuse. Denies injuries from another. Nutritional iw screening: No deficits noted. Tuberculosis screening: No symptoms or risk factors identified. Fall Risk IV access (20 points). Assessment: 17:30 General: Appears in no apparent distress. Behavior is calm, cooperative. Pain: Denies iw pain. Complains of pain in chest. Neuro: Level of Consciousness is awake, alert, obeys commands, Oriented to person, place, time, situation, Moves all extremities. Full function. Cardiovascular: Patient's skin is warm and dry. Respiratory: Respiratory effort is even, unlabored, Respiratory pattern is regular, symmetrical. Derm: Skin is intact, is healthy with good turgor. Musculoskeletal: Range of motion: intact in all extremities. Vital Signs: 15:18 BP 139 / 96; Pulse 83; Resp 17; Temp 98.4; Pulse Ox 98% ; Weight 113.4 kg; Height 5 ft. ll1 10 in. (177.80 cm); Pain 4/10; 15:18 Body Mass Index 35.87 (113.40 kg, 177.80 cm) ll1 ED Course: 15:13 Patient arrived in ED. am2 15:13 Edgardo Shepard MD is Private Physician. am2 15:18 Arm band placed on. ll1 15:20 Triage completed. ll1 16:39 Patient placed in an exam room, on a stretcher. vg1 16:43 Esequiel Kat PA is PHCP. cp 16:43 Jesus Mckeon MD is Attending Physician. cp 16:44 Kelly Reyna RN is Primary Nurse. iw 17:37 Inserted saline lock: 22 gauge in right antecubital area, using aseptic technique. iw Blood collected. 17:41 XRAY Chest (1 view) In Process Unspecified. EDMS 19:33 CT Chest For PE Angio In Process Unspecified. EDMS Administered Medications: 17:45 Drug: NS 0.9% 1000 ml Route: IV; Rate: 1 bolus; Site: right antecubital; iw 17:45 Drug: REGEN-COV Dose Pack 120 mg/mL-120 mg/mL (EUA) 160 ml Route: IV; Rate: calculated iw rate; Site: right antecubital; 19:55 Drug: SOLU-Medrol (methylPrednisoLONE) 80 mg Route: IVP; Site: right antecubital; wr Outcome: 20:10 Discharge ordered by . cp 20:35 Patient left the ED. wr Signatures: Dispatcher [employer] EDMS Kelly Reyna RN RN iw Esequiel Kat PA PA cp Paula Zavala am2 Rosy Gillespie RN RN vg1 Leobardo Lea RN RN ll1 Jamir Nova wr
--- NOTE | 2021-06-16 20:11 | EDPHYS ---
Physician Documentation [facility] Name: Seble Potter II Age: 36 yrs Sex: Male : 1985 Arrival Date: 06/16/2021 Time: 15:13 Bed DIS3 Private MD: Edgardo Shepard T ED Physician Jesus Mckeon HPI: 06/16 17:15 This 36 yrs old Male presents to ER via Ambulatory with complaints of cp infusion treatment. 17:15 Presents to emergency department with complaints of increasing shortness of breath, cp chest pain, cough, subjective fever. Patient reports she tested positive for COVID-19 3 days ago and started having symptoms 6 days ago. Patient reports he was seen here in the emergency department 2 days ago on 06/14/2021 and was offered Regeneron treatment but refused at that time. He comes in today requesting for Regeneron infusion.. Historical: - Allergies: 15:20 Sulfa (Sulfonamide Antibiotics); ll1 - PMHx: 15:20 ankylosing spondilitis; Colitis; Diabetes - NIDDM; DVT; Gout; Kidney stones; ll1 - PSHx: 15:20 None; ll1 - Immunization history:: Client reports having NOT received the Covid vaccine. - Social history:: Smoking status: Patient denies any tobacco usage or history of. ROS: 17:20 Constitutional: Negative for fever, poor PO intake. cp 17:20 Eyes: Negative for injury, pain, redness, and discharge. cp 17:20 ENT: Negative for drainage from ear(s), ear pain, sore throat, difficulty swallowing, difficulty handling secretions. 17:20 Cardiovascular: Positive for chest pain, with cough. 17:20 Respiratory: Positive for cough, "sounds productive", shortness of breath. 17:20 Abdomen/GI: Negative for abdominal pain, vomiting, diarrhea, constipation. 17:20 Neuro: Negative for altered mental status, dizziness, headache, syncope, weakness. 17:20 All other systems are negative. Exam: 17:25 Constitutional: The patient appears in no acute distress, alert, awake, cp non-diaphoretic, non-toxic, well developed, well nourished, obese. 17:25 Head/Face: Normocephalic, atraumatic. cp 17:25 Eyes: Periorbital structures: appear normal, Conjunctiva: normal, no exudate, no injection, Sclera: no appreciated abnormality, Lids and lashes: appear normal, bilaterally. 17:25 ENT: External ear(s): are unremarkable, Nose: is normal, Mouth: Lips: moist, Oral mucosa: moist, Posterior pharynx: Airway: no evidence of obstruction, patent. 17:25 Neck: ROM/movement: is normal, is supple, without pain, no range of motions limitations. 17:25 Chest/axilla: Inspection: normal, Palpation: is normal, no crepitus, no tenderness. 17:25 Cardiovascular: Rate: normal, Rhythm: regular, Edema: is not appreciated, JVD: is not appreciated. 17:25 Respiratory: the patient does not display signs of respiratory distress, Respirations: normal, no use of accessory muscles, no retractions, labored breathing, is not present, Breath sounds: bronchial sounds, that are mild, are heard diffusely, decreased breath sounds, are not appreciated, stridor, is not appreciated, wheezing: is not appreciated. 17:25 Abdomen/GI: Exam negative for discomfort, distension, guarding, Inspection: abdomen appears normal. 17:25 Back: pain, is absent, ROM is normal. 20:17 ECG was reviewed by the Attending Physician. cp Vital Signs: 15:18 BP 139 / 96; Pulse 83; Resp 17; Temp 98.4; Pulse Ox 98% ; Weight 113.4 kg; Height 5 ft. ll1 10 in. (177.80 cm); Pain 4/10; 15:18 Body Mass Index 35.87 (113.40 kg, 177.80 cm) ll1 MDM: 17:00 Patient medically screened. cp 18:00 Differential diagnosis: pneumonia, pulmonary edema, Pulmonary Embolism Sepsis. cp 20:10 Data reviewed: vital signs, nurses notes, lab test result(s), EKG, radiologic studies, cp CT scan, plain films. 20:10 Test interpretation: by ED physician or midlevel provider: ECG, plain radiologic cp studies. Counseling: I had a detailed discussion with the patient and/or guardian regarding: the historical points, exam findings, and any diagnostic results supporting the discharge/admit diagnosis, lab results, radiology results, to return to the emergency department if symptoms worsen or persist or if there are any questions or concerns that arise at home. ED course: VSS. Patient appears non-toxic and no signs of respiratory distress. Will discharge to home for continued monitoring. 06/16 17:06 Order name: CRP; Complete Time: 19:42 cp 06/16 19:42 Interpretation: Abnormal: C-REACTIVE PROT 32.10. cp 06/16 17:06 Order name: Ferritin; Complete Time: 19:42 cp 06/16 17:06 Order name: Basic Metabolic Panel; Complete Time: 19:42 cp 06/16 19:42 Interpretation: Normal except: CRE 1.44; GFR 56. cp 06/16 17:06 Order name: CBC with Diff; Complete Time: 18:07 cp 06/16 17:06 Order name: LFT's; Complete Time: 19:42 cp 06/16 17:06 Order name: Magnesium; Complete Time: 19:42 cp 06/16 17:06 Order name: NT PRO-BNP; Complete Time: 19:42 cp 06/16 17:06 Order name: PT-INR; Complete Time: 18:07 cp 06/16 17:06 Order name: Troponin (emerg Dept Use Only); Complete Time: 19:42 cp 06/16 17:06 Order name: XRAY Chest (1 view); Complete Time: 18:07 cp 06/16 18:18 Order name: CT Chest For PE Angio; Complete Time: 20:09 cp 06/16 17:06 Order name: EKG; Complete Time: 17:07 cp 06/16 17:06 Order name: Cardiac monitoring cp 06/16 17:06 Order name: EKG - Nurse/Tech cp 06/16 17:06 Order name: IV Saline Lock; Complete Time: 19:20 cp 06/16 17:06 Order name: Labs collected and sent; Complete Time: 19:20 cp 06/16 17:06 Order name: O2 Per Protocol; Complete Time: 19:21 cp 06/16 17:06 Order name: O2 Sat Monitoring; Complete Time: 19:21 cp EC:17 Rate is 88 beats/min. Rhythm is regular. IN interval is normal. QRS interval is normal. cp QT interval is normal. T waves are Inverted in lead aVR. Interpreted by me. Reviewed by me. Administered Medications: 17:45 Drug: NS 0.9% 1000 ml Route: IV; Rate: 1 bolus; Site: right antecubital; iw 17:45 Drug: REGEN-COV Dose Pack 120 mg/mL-120 mg/mL (EUA) 160 ml Route: IV; Rate: calculated iw rate; Site: right antecubital; 19:55 Drug: SOLU-Medrol (methylPrednisoLONE) 80 mg Route: IVP; Site: right antecubital; wr Disposition Summary: 06/16/21 20:10 Discharge Ordered Location: Home cp Problem: an ongoing problem cp Symptoms: have improved cp Condition: Stable cp Diagnosis - Pneumonia due to SARS-associated coronavirus cp Followup: cp - With: Private Physician - When: 2 - 3 days - Reason: Recheck today's complaints Discharge Instructions: - Discharge Summary Sheet cp - Aspirin and Your Heart cp - COVID-19 cp - COVID-19 Frequently Asked Questions cp - 10 Things You Can Do to Manage Your COVID-19 Symptoms at Home - [facility] cp Forms: - Medication Reconciliation Form cp - Thank You Letter cp - Antibiotic Education cp - Prescription Opioid Use cp Addendum: 06/19/2021 07:00 Co-signature as Attending Physician, Jesus Mckeon MD I agree with the assessment and r n plan of care. Attestation: The patient's history, exam findings, diagnostics, and a summary of any interventions or procedures was reviewed in detail with Esequiel SAENZ. Signatures: Dispatcher [employer] Kelly Luna RN RN iw Nieto, Roman, MD MD rn Page, Corey, PA PA cp Lewis, Lynsay, RN RN llJamir Lebron
[2021-06-16] MEDS ORDERED: METHYLPREDNISOLONE 40 MG INJ ONE (20:15)
[2021-06-16] MEDS ORDERED: FENTANYL CITR 100 MCG/2 ML ONE (20:25)
[2021-06-16 20:52] VITALS: BP 139/96; TEMP 98.4; O2SAT 98
--- NOTE | 2021-06-17 11:14 | EKG ---
Test Date: 2021-06-16 Test Time: 20:11:36 Catheter Builder: SHIMA MEASUREMENT RESULTS: Intervals: Rate: 88 OK: 176 QRSD: 90 QT: 334 QTc: 404 [place]: P: 17 OK: 176 QRS: -3 T: 29 INTERPRETIVE STATEMENTS: Normal sinus rhythm Normal ECG Compared to ECG 02/28/2018 05:10:00 Sinus tachycardia no longer present Electronically Signed On 06-17-21 11:13:03 CDT by Alcides Lockett
== END 2021-06-16 20:35 | disposition home or self-care (01) ==
LOC: ER 15:11
DX: U07.1 COVID-19 (principal); J12.82 Pneumonia due to coronavirus disease 2019; E11.9 Type 2 diabetes mellitus without complications; Z88.2 Allergy status to sulfonamides
CPT/HCPCS: 93005; 85025; 80048; 36415; 83735; 85610; 80076; 84484; 82728; 83880; 86140; 71275; 71045; 96375; 96374; 99284; J7050; J7030; J2920; J3010

== ENCOUNTER 2022-11-13 03:16 | Emergency (ER) | payer BC ==
--- OUTSIDE RECORDS SUMMARY | 2022-11-13 03:19 | XMS REPORT | Continuity of Care Document ---
:1985 Author Organization [facility] t Address [address] [place] [address] Care Team Providers Name Role Phone Ghada Primary Care Physician Matt Attending Clinician Unavailable Annel Rivera Attending Clinician [phone] DOMINIQUE KO Attending Clinician Unavailable MD DOMINIQUE KO Attending Clinician Unavailable Matt Admitting Clinician Unavailable SHUBHAM HILLS Admitting Clinician Unavailable MD SHUBHAM HILLS Admitting Clinician Unavailable Payers Payer Name Policy Type Policy Number Effective Date Expiration Date S mike [place] [id number] 2022 (PPO) 00:00:00 [facility] - [id number] 2020 EV BENEFITS 00:00:00 MANAGEMENT Problems Condition Condition Condition Status Onset Resolution Last Treating Co mments Source Name Details Category Date Date Treatment Clinician Date 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 1-13 Or ope gout Gout 00:00: dic 00 Sports Medicin e Uric acid Uric Acid Problem Active Aza fermín renal Renal 1-13 Orth[facility] calculus Calculus 00:00: dic 00 Sports Medicin e Overweight Overweight Problem Active A zalea 1-13 Orthope 00:00: dic 00 Sports Medicin e Idiopathic Idiopathic Problem Active A zalea osteoarthr Osteoarthr 1-13 Or thope itis itis 00:00: dic 00 Sports Medicin e Elbow Elbow Problem Active Renae joint Joint 1-13 Orthope effusion Effusion 00:00: dic 00 Sports Medicin e Swelling Swelling Problem Active Azale a of knee of Knee 1-13 Orthope joint Joint 00:00: dic 00 Sports Medicin e Ankylosing Ankylosing Problem Active A zalea spondyliti Spondyliti 1-13 Or thope s s 00:00: dic 00 Sports Medicin e Inflammati Inflammati Problem Active A zalea on of on of - Orthope sacroiliac Sacroiliac 00:00: di c joint Joint 00 Sports Medicin e Chronic Chronic Problem Active Renae neck pain Neck Pain -13 Orth ope 00:00: dic 00 Sports Medicin e Current Current Problem Active Renae drug user Drug User 1- Orth ope 00:00: dic 00 Sports Medicin e Hydronephr Hydronephr Disease Active M ethodi osis with osis with 614 urinary urinary 00:00: Hospita obstructio obstructio 00 l n due to n due to renal renal calculus calculus Type 2 Type 2 Disease Active [facility] diabetes diabetes 614 mellitus, mellitus, 00:00: Hosp keiry without without 00 l long-term long-term current current use of use of insulin insulin Gout Gout Disease Active [facility] 6-14 st 00:00: Hospita 00 l Hydronephr Hydronephr Disease Active M ethodi osis osis 6-14 concurrent concurrent 00:00: Ho spita with and with and 00 l due to due to calculi of calculi of kidney and kidney and ureter ureter 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 00:00: Hospit a 00 l Chronic Chronic Disease Active [facility] idiopathic idiopathic 4-06 st gout gout 00:00: Hospita involving involving 00 l toe of toe of left foot left foot without without tophus tophus Fall (on) Fall (on) Disease Active Met hodi (from) (from) 1-12 st other other 00:00: Hospita stairs and stairs and 00 l steps, steps, initial initial encounter encounter Hip Hip Disease Active [facility] injury, injury, 1-12 st left, left, 00:00: Hospita initial initial 00 l encounter encounter Rash and Rash and Disease Active Metho di nonspecifi nonspecifi 1-12 st c skin c skin 00:00: Hospita eruption eruption 00 l Depressed Depressed Disease Active Met [facility] mood mood 6-13 st 00:00: Hospita 00 l Fatigue Fatigue Disease Active 2015-09 [facility] 0-[facility] 00:00: Hospita 00 l Obesity Obesity Disease Active 2015-09 [facility] (BMI (BMI 0-14 st 30-39.9) 30-39.9) 00:00: Hospit a 00 l Disease Active 2015-09 [facility] (ankylosin (ankylosin 0-14 st g g 00:00: Hospita spondyliti spondyliti 00 l s) s) Encounter Encounter Disease Active 2015-09 Met [facility] for for 0-14 st long-term long-term 00:00: Hosp keiry (current) (current) 00 l use of use of high-risk high-risk medication medication Hyperurice Hyperurice Disease Active 2015-09 M ethodi denzel denzel 0-14 st 00:00: Hospita 00 l Nephrolith Nephrolith Disease Active 2015-09 M ethodi iasis iasis 0-14 st 00:00: Hospita 00 l Renal Renal Disease Active 2015-09 [facility] insufficie insufficie 0-14 st ncy ncy 00:00: Hospita 00 l Acute Acute Disease Active [facility] right right 8-13 st flank pain flank pain 00:00: Ho spita 00 l Calculus Calculus Disease Active Metho di of urinary of urinary 813 st bladder bladder 00:00: Hospita 00 l Leukocytos Leukocytos Disease Active M ethodi is is 8-13 st 00:00: Hospita 00 l Kidney Kidney Disease [facility] Allergies, Adverse Reactions, Alerts Allergy Allergy Status Severity Reaction(s) Onset Inactive Treating Comm ents Source Name Type Date Date Clinician Sulfa Propensi Active THROAT [facility] (Sulfona ty to [address] mide adverse 00:00: Hospita Antibiot reaction 00 l ics) s to drug Sulfa Drug Active [facility]aphylaxis [facility]iot [facility] ics) SULFA Allergy Active Renae (SULFONA to Orthope MIDE substanc dic ANTIBIOT e Sports ICS) Medicin e Family History Family Member Diagnosis Comments Start Date Stop Date Source Natural father Diabetes [facility] Paternal grandfather Diabetes [facility] Paternal uncle Diabetes [facility] Social History Social Habit Start Date Stop Date Quantity Comments Source History of tobacco Chews Tobacco [facility] Alcohol intake 2020-03-03 2020-03-03 Current drinker [facility] dist 00:00:00 00:00:00 of alcohol Hospital (finding) Cigarettes smoked 2018-01-20 2018-01-[address] current (pack per 00:00:00 00:00:00 Hospita l day) - Reported Cigarette 2018-01-20 2018-01-20 [facility] pack-years 00:00:00 00:00:00 Hospital Tobacco use and 2018-01-20 2018-01-20 Smokeless tobacco Me thodist exposure 00:00:00 00:00:00 non-user Hospital Tobacco Comment 2016-02-23 2016-02-23 quit 02/06/[address] 00:00:00 00:00:00 Hospital Alcohol Comment 2016-02-23 2016-02-23 rarely [facility] 00:00:00 00:00:00 Hospital Sex Ass[birth year] At [birth year] [facility] 00:00:00 00:00:00 Hospital Smoking Status Start Date Stop Date Source Former Smoker [facility] Current every day smoker [facility] Medications Ordered Filled Start Stop Current Ordering Indication Dosage Frequency Signature Comments Components Source Medication Medication Date Date Medication? Clinician (SIG) Name Name certolizuma 2020-0 Yes 200mg Q14D Inject 200 [facility] b pegoL 6-[address] (CIMZIA) 14:05: the skin Hospi ta 400 mg/2 mL 05 every 14 l (200 mg/mL (fourteen) x 2) days. syringe kit pot,sodium 2020-0 Yes 15mL Q.5D Take 15 mL M ethodi citrate-cit 6-[address] everardo acid 00:00: every 12 Hospi ta (TRICITRATE 00 (twelve) l S) hours. 550-500-334 mg/5 mL solution allopurinoL 2020-0 Yes 600mg QD Take 600 M ethodi (ZYLOPRIM) 3-[address] 300 MG 00:00: mouth Hospita tablet 00 daily. l baclofen 2018-0 Yes [id number] TAKE 1 TO [facility] (LIORESAL) 1-[address] 10 MG 00:00: BY MOUTH Hospita tablet 00 AT BEDTIME l FOR MUSCLE SPASMS acetaminoph acetaminoph No 1 Q6H acetaminop Renae en 300 en 300 hen 300 Orthope mg-codeine mg-codeine mg-codeine dic 30 mg 30 mg 30 mg Sports tablet Take tablet Take tablet Medicin 1 tablet 1 tablet Take 1 e every 6 every 6 tablet hours by hours by every 6 oral route. oral route. hours by oral route. calcipotrie calcipotrie No calcipotri Renae ne 0.005 % ne 0.005 % virgilio 0.005 Orthope topical topical % topical dic cream APPLY cream APPLY cream Sports TO AFFECTED TO AFFECTED APPLY TO Medicin AREAS OF AREAS OF AFFECTED e PSORIASIS PSORIASIS AREAS OF ON TRUNK ON TRUNK PSORIASIS AND AND ON TRUNK EXTREMITIES EXTREMITIES AND TWICE A DAY TWICE A DAY EXTREMITIE NEEDED NEEDED S TWICE A DAY NEEDED diclofenac diclofenac No diclofenac Renae sodium 75 sodium 75 sodium 75 Orthope mg mg mg dic tablet,ruma tablet,ruma tablet,del Sports yed release yed release ayed M edicin TAKE ONE TAKE ONE release e (1) (1) TAKE ONE TABLET(S) TABLET(S) (1) BY MOUTH BY MOUTH TABLET(S) TWICE A TWICE A BY MOUTH DAY. DAY. TWICE A DAY. folic acid folic acid No folic acid Renae 1 mg tablet 1 mg tablet 1 mg O rthope TAKE 1 TAKE 1 tablet dic TABLET BY TABLET BY TAKE 1 Spo rts MOUTH EVERY MOUTH EVERY TABLET BY Medicin DAY DAY MOUTH e EVERY DAY hydroxyzine hydroxyzine No 1 Q1D hydroxyzin Renae HCl 25 mg HCl 25 mg e HCl 25 O rthope tablet Take tablet Take mg tablet dic 1 tablet 1 tablet Take 1 Sport s every day every day tablet Med icin by oral by oral every day e route at route at by oral bedtime for bedtime for route at 30 days. as 30 days. as bedtime needed for needed for for 30 itching itching days. as needed for itching meloxicam meloxicam No meloxicam Renae 15 mg 15 mg 15 mg Orthope tablet TAKE tablet TAKE tablet dic 1 TABLET BY 1 TABLET BY TAKE 1 Sports MOUTH EVERY MOUTH EVERY TABLET BY Medicin DAY DAY MOUTH e EVERY DAY metformin metformin No 1 BID metformin Renae 500 mg 500 mg 500 mg Orthope tablet Take tablet Take tablet dic 1 tablet 1 tablet Take 1 Sport s twice a day twice a day tablet Medicin by oral by oral twice a e route. route. day by oral route. metformin metformin No metformin Renae ER 500 mg ER 500 mg ER 500 mg Orthope tablet,exte tablet,exte tablet,ext dic nded nded ended Sports release 24 release 24 release 24 Medicin hr TAKE 1 hr TAKE 1 hr TAKE 1 e TABLET BY TABLET BY TABLET BY MOUTH TWICE MOUTH TWICE MOUTH A DAY A DAY TWICE A DAY methotrexat methotrexat No methotrexa Renae e sodium e sodium te sodium Or thope 2.5 mg 2.5 mg 2.5 mg dic tablet TAKE tablet TAKE tablet Sports 5 TABLETS 5 TABLETS TAKE 5 Med icin BY MOUTH BY MOUTH TABLETS BY e ONE TIME ONE TIME MOUTH ONE PER WEEK PER WEEK TIME PER WEEK prednisone prednisone No prednisone Renae 10 mg 10 mg 10 mg Orthope tablet TAKE tablet TAKE tablet dic 1 TABLET BY 1 TABLET BY TAKE 1 Sports MOUTH TWICE MOUTH TWICE TABLET BY Medicin A DAY A DAY MOUTH e TWICE A DAY Rinvoq 15 Rinvoq 15 No 1 Q1D Rinvoq 15 Renae mg mg mg Orthope tablet,exte tablet,exte tablet,ext dic nded nded ended Sports release release release Medici n Take 1 Take 1 Take 1 e tablet tablet tablet every day every day every day by oral by oral by oral route for route for route for 90 days. 90 days. 90 days. Xeljanz XR Xeljanz XR No Xeljanz XR Renae 11 mg 11 mg 11 mg Orthope tablet,exte tablet,exte tablet,ext dic nded nded ended Sports release release release Medici n TAKE 1 TAKE 1 TAKE 1 e TABLET BY TABLET BY TABLET BY MOUTH EVERY MOUTH EVERY MOUTH DAY DAY EVERY DAY zinc zinc No zinc Renae sulfate 50 sulfate 50 sulfate 50 Orthope mg zinc mg zinc mg zinc dic (220 mg) (220 mg) (220 mg) Spo rts capsule capsule capsule Medici n TAKE 1 TAKE 1 TAKE 1 e CAPSULE BY CAPSULE BY CAPSULE BY MOUTH EVERY MOUTH EVERY MOUTH DAY IN THE DAY IN THE EVERY DAY MORNING MORNING IN THE MORNING Vital Signs Vital Name Observation Time Observation Value Comments Source BP Diastolic 2022-04-05 00:00:00 128 mm[Hg] [facility] Height 2022-04-05 00:00:00 70 [in_i] [facility] BMI (Body Mass 2022-04-05 00:00:00 34.4 kg/m2 [facility] Index) Sports Medicine BP Systolic 2022-04-05 00:00:00 164 mm[Hg] [facility] Body Weight 2022-04-05 00:00:00 240 [lb_av] [facility] Procedures This patient has no known procedures. Plan of Care Planned Activity Planned Date Details Comments Source Future Scheduled 2022-08-31 COVID-19 VACCINE (#1) [facility] Test 11:59:42 [code = COVID-19 VACCINE (#1)] Future Scheduled 2022-08-31 Pneumococcal Vaccine: [facility] Test 11:59:42 Pediatrics (0 to 5 Years) and At-Risk Patients (6 to 64 Years) (1 - PCV) [code = Pneumococcal Vaccine: Pediatrics (0 to 5 Years) and At-Risk Patients (6 to 64 Years) (1 - PCV)] Future Scheduled 2022-08-31 DIABETES: RETINAL EYE [facility] Test 11:59:42 EXAM [code = DIABETES: RETINAL EYE EXAM] Future Scheduled 2022-08-31 DIABETIC FOOT EXAM [facility] Test 11:59:42 [code = DIABETIC FOOT EXAM] Future Scheduled 2022-08-31 URINE MICROALBUMIN [facility] Test 11:59:42 [code = URINE MICROALBUMIN] Future Scheduled 2022-08-31 Hepatitis C screening [facility] Test 11:59:42 (procedure) [code = 244013144] Future Scheduled 2022-08-31 INFLUENZA VACCINE [facility] Test 11:59:42 [code = INFLUENZA VACCINE] Encounters Start End Encounter Admission Attending Care Care Encounter Source Date/Time Date/Time Type Type Clinicians Facility Department ID 2022-09-13 2022-09-13 Outpatient AO_Mihu_Ram AOSM AOSM [id number] Renae 00:00:00 00:00:00 Vasyl [id number] Orthop e dic Sports Medicin e 2022-04-16 2022-04-16 Outpatient AO_Mihu_Ram AOSM AOSM [id number] Renae 00:00:00 00:00:00 Vasyl [id number] Orthop e dic Sports Medicin e 2022-04-05 2022-04-05 Outpatient AO_Mihu_Ram AOSM AOSM [id number] Renae 05:42:00 05:42:00 Vasyl [id number] Orthop e dic Sports Medicin e 2022-04-05 2022-04-05 Outpatient Miguel, AOSM AOSM [id number] 00:00:00 00:00:00 Annel [id number] 2022-04-05 Annel AOSM [place] - Ortho [id number] Renae 00:00:00 00:00:00 MD Miguel: Glo Andrews [id number] AO_Ofc dic Morin [facility]LO[facility] Sports [place] [facility] in [address] [place] [address] , Ph. 2022-04-04 2022-04-04 Outpatient AO_Mihu_Ram AOSM AOSM [id number] Renae 02:11:00 02:11:00 Vasyl [id number] Orthop e dic Sports Medicin e 2022-04-03 2022-04-03 Outpatient AO_Mihu_Ram AOSM AOSM [id number] Renae 01:32:00 01:32:00 Vasyl [id number] Orthop e dic Sports Medicin e 2022-02-28 2022-02-28 Outpatient AO_Mihu_Ram AOSM AOSM [id number] Renae 02:51:00 02:51:00 Vasyl [id number] Orthop e dic Sports Medicin e 2022-02-28 2022-02-28 Outpatient AO_Mihu_Ram AOSM AOSM [id number] Renae 02:51:00 02:51:00 Vasyl [id number] Orthop e dic Sports Medicin e 2020-02-28 2020-03-02 [facility], [facility]9 [id number] [place] 00:00:00 00:00:00 DOMINIQUE [address] Results Test Description Test Time Test Comments Results Result Comments Source SARS coronavirus 2 RNA [Presence] in Respiratory speci men by 2020-02-29 20:01:51 ALFREDO with probe detection Test Item Value Reference Range Interpretation Comme nts SARS coronavirus 2 RNA [Presence] in Respiratory Not detected Not-D etected specimen by ALFREDO with probe detection (test code = 93408-3) SHARDA GANN
--- NOTE | 2022-11-13 03:36 | EDPHYS ---
Physician Documentation [facility] Name: Seble Potter II Age: 37 yrs Sex: Male : 1985 Arrival Date: 11/13/2022 Time: 03:21 Bed 17 Private MD: ED Physician Irma Souza HPI: 11/13 03:32 This 37 yrs old Male presents to ER via Unassigned with complaints of back pain and sp3 right hHip Pain. 03:32 37-year-old male with history of ankylosing spondylitis who has unfortunately lost his sp3 employment and has not been able to see his physician team secondary to insurance reasons now presents to the ED for chief complaint acute on chronic lower pain. Patient states that he is not have a full fused spine but the lower half is fused. He has been on a biologic as well as methotrexate, Tylenol 3, and NSAIDs. He is not requesting any narcotics at this time and only wants refills of his NSAIDs if possible. She denies headache, neck pain, chest pain, shortness of breath, upper back pain, loss of bowel or bladder control, numbness or tingling or saddle anesthesia, fever, or any other symptoms on ROS at this time.. Historical: - Allergies: 03:39 Sulfa (Sulfonamide Antibiotics); kd3 - Home Meds: 03:39 Baclofen Oral [Active]; Methotrexate Sodium Oral [Active]; Tylenol #3 Oral as needed kd3 [Active]; cimzia [Active]; - PMHx: 03:39 Diabetes - NIDDM; DVT; Gout; Kidney stones; Colitis; ankylosing spondilitis; kd3 - Immunization history:: Adult Immunizations up to date. - Social history:: Smoking status: unknown. ROS: 03:33 Constitutional: Negative for fever, chills, and weight loss, Eyes: Negative for injury, sp3 pain, redness, and discharge, ENT: Negative for injury, pain, and discharge, Neck: Negative for injury, pain, and swelling, Cardiovascular: Negative for chest pain, palpitations, and edema, Respiratory: Negative for shortness of breath, cough, wheezing, and pleuritic chest pain, Abdomen/GI: Negative for abdominal pain, nausea, vomiting, diarrhea, and constipation, Skin: Negative for injury, rash, and discoloration, Neuro: Negative for headache, weakness, numbness, tingling, and seizure. 03:33 All other systems are negative. Exam: 03:33 Constitutional: This is a well developed, well nourished patient who is awake, alert, sp3 and in no acute distress. Head/Face: Normocephalic, atraumatic. Eyes: Pupils equal round and reactive to light, extra-ocular motions intact. Lids and lashes normal. Conjunctiva and sclera are non-icteric and not injected. Cornea within normal limits. Periorbital areas with no swelling, redness, or edema. Neck: Trachea midline, no thyromegaly or masses palpated, and no cervical lymphadenopathy. Supple, full range of motion without nuchal rigidity, or vertebral point tenderness. No Meningismus. Chest/axilla: Normal chest wall appearance and motion. Nontender with no deformity. No lesions are appreciated. Cardiovascular: Regular rate and rhythm with a normal S1 and S2. No gallops, murmurs, or rubs. Normal PMI, no JVD. No pulse deficits. Respiratory: Lungs have equal breath sounds bilaterally, clear to auscultation and percussion. No rales, rhonchi or wheezes noted. No increased work of breathing, no retractions or nasal flaring. Abdomen/GI: Soft, non-tender, with normal bowel sounds. No distension or tympany. No guarding or rebound. No evidence of tenderness throughout. Skin: Warm, dry with normal turgor. Normal color with no rashes, no lesions, and no evidence of cellulitis. MS/ Extremity: Pulses equal, no cyanosis. Neurovascular intact. Full, normal range of motion. 03:33 Back: Decreased range of motion on back and antalgic gait.. Vital Signs: 03:37 BP 177 / 82; Pulse 80; Resp 19; Temp 98.2; Pulse Ox 98% on R/A; Weight 113.4 kg; Height kd3 5 ft. 10 in. (177.80 cm); 03:37 Body Mass Index 35.87 (113.40 kg, 177.80 cm) kd3 MDM: 03:34 Data reviewed: vital signs, nurses notes. ED course: 47-year-old male with ankylosing sp3 spondylitis with acute on chronic pain. We will administer ketorolac 60 mg IM and Dilaudid 2 mg IM and discharge patient on diclofenac p.o. 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 Patient has a ride home and will not be operating any heavy machinery or automobile. Not suspicious for any other pathology including cauda equina syndrome, spinal compromise, epidural abscess, retropharyngeal pathology, aortic pathology CVA, vertebral artery dissection, or any other critical or concerning findings at this time.. 03:35 Patient medically screened. sp3 Administered Medications: 03:47 Drug: Ketorolac 60 mg Route: IM; Site: left gluteus; jb4 03:47 Drug: Dilaudid (HYDROmorphone) 2 mg Route: IM; Site: left deltoid; jb4 Disposition Summary: 11/13/22 03:35 Discharge Ordered Location: Home sp3 Condition: Stable sp3 Diagnosis - Ankylosing spondylitis lumbar region sp3 Followup: sp3 - With: Private Physician - When: Upon discharge from the Emergency Department - Reason: Continuance of care Discharge Instructions: - Discharge Summary Sheet sp3 - Ankylosing Spondylitis, Adult sp3 Forms: - Medication Reconciliation Form sp3 - Thank You Letter sp3 - Antibiotic Education sp3 - Prescription Opioid Use sp3 Prescriptions: - Diclofenac Sodium 75 mg Oral Tablet Sustained Release - take 1 tablet by ORAL route 2 times per day; 30 tablet; Refills: 0, Product sp3 Selection Permitted Signatures: Az Lockwood, RN RN jb4 Irma Souza MD MD sp3 Deirdre Craft RN RN kd3
[2022-11-13] MEDS ORDERED: HYDROMORPHONE HCL 2 MG/ML inj ONE (03:45)
[2022-11-13] MEDS ORDERED: KETOROLAC 30 MG/ML INJ ONE (03:46)
--- NOTE | 2022-11-13 04:15 | ER ---
Nurse's Notes [facility] Name: Seble Potter II Age: 37 yrs Sex: Male : 1985 Arrival Date: 11/13/2022 Time: 03:21 Bed 17 Private MD: Diagnosis: Ankylosing spondylitis lumbar region Presentation: 11/13 03:37 Chief complaint: Patient states: I have ankylosing spondylitis and i have ran out of my kd3 medications and i just need something for right now for the pain. Coronavirus screen: Vaccine status: Patient reports being unvaccinated. Ebola Screen: No symptoms or risks identified at this time. Initial Sepsis Screen: Does the patient meet any 2 criteria? No. Patient's initial sepsis screen is negative. Does the patient have a suspected source of infection? No. Patient's initial sepsis screen is negative. Risk Assessment: Do you want to hurt yourself or someone else? Patient reports no desire to harm self or others. Onset of symptoms was November 13, 2022. 03:37 Method Of Arrival: Wheelchair kd3 03:37 Acuity: KARL 4 kd3 Triage Assessment: 03:39 General: Appears uncomfortable, Behavior is calm, cooperative. Pain: Complains of pain kd3 in right hip. Historical: - Allergies: 03:39 Sulfa (Sulfonamide Antibiotics); kd3 - Home Meds: 03:39 Baclofen Oral [Active]; Methotrexate Sodium Oral [Active]; Tylenol #3 Oral as needed kd3 [Active]; cimzia [Active]; - PMHx: 03:39 Diabetes - NIDDM; DVT; Gout; Kidney stones; Colitis; ankylosing spondilitis; kd3 - Immunization history:: Adult Immunizations up to date. - Social history:: Smoking status: unknown. Screenin:09 [facility] ED Fall Risk Assessment (Adult) History of falling in the last 3 months, jb4 including since admission No falls in past 3 months (0 pts) Confusion or Disorientation No (0 pts) Score/Fall Risk Level 0 - 2 = Low Risk Oriented to surroundings, Maintained a safe environment. Abuse screen: Denies threats or abuse. Nutritional screening: No deficits noted. Tuberculosis screening: No symptoms or risk factors identified. Assessment: 04:09 General: Appears in no apparent distress. uncomfortable, Behavior is calm, cooperative, jb4 appropriate for age. Pain: Complains of pain in right hip Pain does not radiate. Pain currently is 10 out of 10 on a pain scale. Neuro: Level of Consciousness is awake, alert, obeys commands, Oriented to person, place, time, situation. Cardiovascular: Patient's skin is warm and dry. Respiratory: Airway is patent Respiratory effort is even, unlabored, Respiratory pattern is regular, symmetrical. GI: No signs and/or symptoms were reported involving the gastrointestinal system. : No signs and/or symptoms were reported regarding the genitourinary system. EENT: No signs and/or symptoms were reported regarding the EENT system. Derm: Skin is intact, Skin is pink, warm \T\ dry. Musculoskeletal: Circulation, motion, and sensation intact. Range of motion: intact in all extremities. Vital Signs: 03:37 BP 177 / 82; Pulse 80; Resp 19; Temp 98.2; Pulse Ox 98% on R/A; Weight 113.4 kg; Height kd3 5 ft. 10 in. (177.80 cm); 03:37 Body Mass Index 35.87 (113.40 kg, 177.80 cm) kd3 ED Course: 03:21 Patient arrived in ED. ag3 03:26 Irma Souza MD is Attending Physician. sp3 03:39 Triage completed. kd3 03:39 Arm band placed on right wrist. kd3 04:08 Az Lockwood, RN is Primary Nurse. jb4 04:09 Patient has correct armband on for positive identification. Bed in low position. Call jb4 light in reach. Side rails up X 1. Client placed on continuous cardiac and pulse oximetry monitoring. NIBP monitoring applied. 04:09 No provider procedures requiring assistance completed. Patient did not have IV access jb4 during this emergency room visit. Administered Medications: 03:47 Drug: Ketorolac 60 mg Route: IM; Site: left gluteus; jb4 03:47 Drug: Dilaudid (HYDROmorphone) 2 mg Route: IM; Site: left deltoid; jb4 Medication: 04:09 VIS not applicable for this client. jb4 Outcome: 03:35 Discharge ordered by . sp3 04:09 Discharged to home ambulatory. jb4 04:09 Condition: stable 04:09 Discharge instructions given to patient, Instructed on discharge instructions, follow up and referral plans. medication usage, Demonstrated understanding of instructions, follow-up care, medications, Prescriptions given X 1. 04:14 Patient left the ED. jb4 Signatures: Az Lockwood RN RN jb4 Estelita Miramontes3 Irma Souza MD MD sp3 Deirdre Craft RN RN kd3
[2022-11-13 04:22] VITALS: BP 177/82; TEMP 98.2; O2SAT 98
== END 2022-11-13 04:14 | disposition home or self-care (01) ==
LOC: ER 03:16
DX: M45.6 Ankylosing spondylitis lumbar region (principal); Z88.2 Allergy status to sulfonamides
CPT/HCPCS: 96372; 99283; J1170

== ENCOUNTER 2023-01-25 20:17 | Emergency (ER) | payer SELFPAY ==
--- OUTSIDE RECORDS SUMMARY | 2023-01-25 20:24 | XMS REPORT | Continuity of Care Document ---
:1985 Author Organization [facility] t Address [address] [place]. [address] [place] [address] Care Team Providers Name Role Phone Ghada Primary Care Physician Matt Attending Clinician Unavailable Annel Rivera Attending Clinician [phone] DOMINIQUE KO Attending Clinician Unavailable MD DOMINIQUE KO Attending Clinician Unavailable Matt Admitting Clinician Unavailable SHUBHAM HILLS Admitting Clinician Unavailable MD SHUBHAM HILLS Admitting Clinician Unavailable Payers Payer Name Policy Type Policy Number Effective Date Expiration Date S mike [place] [id number] (PPO) 00:00:00 [facility] - [id number] 2020 EV BENEFITS 00:00:00 MANAGEMENT Problems Condition Condition Condition Status Onset Resolution Last Treating Co mments Source Name Details Category Date Date Treatment Clinician Date 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 1-13 Or thope gout Gout 00:00: dic 00 Sports Medicin [...] Active Azale a of knee of Knee - Orthope joint Joint 00:00: dic 00 Sports Medicin e Ankylosing Ankylosing Problem Active A zalea spondyliti Spondyliti 1-13 Or thope s s 00:00: dic 00 Sports Medicin e Inflammati Inflammati Problem Active A zalea on of on of 09-28 Orthope sacroiliac Sacroiliac 00:00: di c joint Joint 00 Sports Medicin e Chronic Chronic Problem Active Renae neck pain Neck Pain - Orth ope 00:00: dic 00 Sports Medicin e Current Current Problem Active Renae drug user Drug User - Orth ope 00:00: dic 00 Sports Medicin e Hydronephr Hydronephr Disease Active 0 M ethodi osis with osis with 614 urinary urinary 00:00: Hospita obstructio obstructio 00 l n due to n due to renal renal calculus calculus Type 2 Type 2 Disease Active [facility] diabetes diabetes [address] [facility] mellitus, mellitus, 00:00: Hosp keiry without without 00 l long-term long-term current current use of use of insulin insulin Gout Gout Disease Active [facility] [address] [facility] 00:00: [facility]osp[facility] 00 l Hydronephr Hydronephr Disease Active 0 M ethodi osis osis 6-14 concurrent concurrent [...] Depressed Disease Active [facility] mood mood 6 st 00:00: [facility]ospita 00 l Disease Active 2015-09 [facility] (ankylosin (ankylosin 014 st g g 00:00: Hospita spondyliti spondyliti 00 l s) s) Encounter Encounter Disease Active 2015-09 [facility] for for 0-14 st long-term long-term 00:00: Hosp keiry (current) (current) 00 l use of use of high-risk high-risk medication medication Hyperurice Hyperurice Disease Active 2015-09 M ethodi denzel denzel 0-14 st 00:00: Hospita 00 l Nephrolith Nephrolith Disease Active 2015-09 M ethodi iasis iasis 014 st 00:00: Hospita 00 l Renal Renal Disease Active 2015-09 [facility] insufficie insufficie 0-14 st ncy ncy 00:00: Hospita 00 l Fatigue Fatigue Disease Active 2015-[address] 00:00: Hospita 00 l Obesity Obesity Disease Active 2015-09 [facility] (BMI (BMI 0-14 st 30-39.9) 30-39.9) 00:00: Hospit a 00 l Acute Acute Disease Active [facility] right right [address] flank pain flank pain 00:00: Ho spita 00 l Calculus Calculus Disease Active [facility] di of urinary of urinary 813 st bladder bladder 00:00: Hospita 00 l Leukocytos Leukocytos Disease Active M ethodi is is 8[address] st 00:00: Hospita 00 l Kidney Kidney Disease [facility] Allergies, Adverse Reactions, Alerts Allergy Allergy Status Severity Reaction(s) Onset Inactive Treating Comm ents Source Name Type Date Date Clinician Sulfa Propensi Active THROAT [facility] (Sulfona ty to 02-[address] mide adverse 00:00: Hospita Antibiot reaction 00 l ics) s to drug Sulfa Drug [facility]aphylaxis [facility] ics) SULFA Allergy Active Renae (SULFONA to Orthope MIDE substanc dic ANTIBIOT e Sports ICS) Medicin e Family History Family Member Diagnosis Comments Start Date Stop Date Source Natural father Diabetes [facility] Paternal grandfather Diabetes Meth [facility] Paternal uncle Diabetes [facility] Social History Social Habit Start Date Stop Date Quantity Comments Source Gender identity [facility] History of tobacco Chews Tobacco [facility] History of Social 2022-11-21 2022-11-[address] function 00:00:00 00:00:00 [facility] Alcohol intake 2020-03-03 2020-03-03 Current drinker [facility] 00:00:00 00:00:00 of [facility] (finding) Cigarettes smoked 2018-01-20 2018-01-[address] current (pack per 00:00:00 00:00:00 Hospita l day) - Reported Cigarette 2018-01-20 2018-01-20 [facility] pack-years 00:00:00 00:00:00 Hospital Tobacco use and 2018-01-20 2018-01-20 Smokeless [facility] exposure 00:00:00 00:00:00 tobacco non-user [facility] Tobacco Comment 2016-02-23 2016-02-23 quit 02/06/[address] 00:00:00 00:00:00 Hospital Alcohol Comment 2016-02-23 2016-02-23 rarely [facility] 00:00:00 00:00:00 Hospital Sex Ass[birth year] At [birth year] [facility] 00:00:00 00:00:00 Hospital Smoking Status Start Date Stop Date Source Former Smoker [facility] Current every day smoker [facility] Medications Ordered Filled Start Stop Current Ordering Indication Dosage Frequency Signature Comments Components Source Medication Medication Date Date Medication? Clinician (SIG) Name Name certolizuma Yes 200mg Q14D Inject 200 [facility] b pegoL 6-[address] (CIMZIA) 14:05: the skin Hospi ta 400 mg/2 mL 05 every 14 l (200 mg/mL (fourteen) x 2) days. syringe kit certolizuma 2020-0 Yes 200mg Q14D Inject 200 [...] l S) hours. 550-500-334 mg/5 mL solution pot,sodium 2020-0 Yes 15mL Q.5D Take 15 mL M ethodi citrate-cit 6-[address] everardo acid 00:00: every 12 Hospi ta (TRICITRATE 00 (twelve) l S) hours. 550-500-334 mg/5 mL solution allopurinoL 2020-0 Yes 600mg QD Take 600 M ethodi (ZYLOPRIM) 3-[address] 300 MG 00:00: mouth Hospita tablet 00 daily. l allopurinoL 2020-0 Yes 600mg QD Take 600 M ethodi (ZYLOPRIM) 3-[address] 300 MG 00:00: mouth Hospita tablet 00 daily. l baclofen 2018-0 Yes [id number] TAKE 1 TO [facility] (LIORESAL) 1-[address] 10 MG 00:00: BY MOUTH Hospita tablet 00 AT BEDTIME l FOR MUSCLE SPASMS baclofen 2018-0 Yes [id number] TAKE 1 TO [facility] (LIORESAL) 1-[address] 10 MG 00:00: BY MOUTH Hospita tablet 00 AT BEDTIME l FOR MUSCLE SPASMS meloxicam meloxicam No meloxicam Renae 15 mg [...] EVERY DAY MORNING MORNING IN THE MORNING acetaminoph acetaminoph No acetaminop Renae en 300 en 300 hen 300 Orthope mg-codeine mg-codeine mg-codeine dic 30 mg 30 mg 30 mg Sports tablet TAKE tablet TAKE tablet Medicin ONE (1) ONE (1) TAKE ONE e TABLET(S) TABLET(S) (1) BY MOUTH BY MOUTH TABLET(S) EVERY SIX EVERY SIX BY MOUTH HOURS. HOURS. EVERY SIX HOURS. allopurinol allopurinol No allopurino Renae 300 mg 300 mg l 300 mg Orthope tablet TAKE tablet TAKE tablet dic ONE (1) ONE (1) TAKE ONE Sport s TABLET(S) TABLET(S) (1) Medic in BY MOUTH BY MOUTH TABLET(S) e EVERY EVERY BY MOUTH MORNING. MORNING. EVERY MORNING. calcipotrie calcipotrie No calcipotri Renae ne 0.005 [...] MOUTH e EVERY DAY hydroxyzine hydroxyzine No hydroxyzin Renae HCl 25 mg HCl 25 mg e HCl 25 O rthope tablet TAKE tablet TAKE mg tablet dic ONE (1) ONE (1) TAKE ONE Sport s TABLET(S) TABLET(S) (1) Medic in BY MOUTH BY MOUTH TABLET(S) e ONCE A DAY ONCE A DAY BY MOUTH AT BEDTIME. AT BEDTIME. ONCE A DAY AT BEDTIME. meloxicam meloxicam No meloxicam Renae 15 mg 15 mg 15 mg Orthope tablet TAKE tablet TAKE tablet dic ONE (1) ONE (1) TAKE ONE Sport s TABLET(S) TABLET(S) (1) Medic in BY MOUTH BY MOUTH TABLET(S) e EVERY EVERY BY MOUTH MORNING. MORNING. EVERY MORNING. metformin metformin No 1 BID metformin Renae [...] release 24 release 24 Medicin hr TAKE ONE hr TAKE ONE hr TAKE e (1) (1) ONE (1) TABLET(S) TABLET(S) TABLET(S) BY MOUTH BY MOUTH BY MOUTH TWICE A TWICE A TWICE A DAY. DAY. DAY. methotrexat methotrexat No methotrexa Renae e sodium e sodium te sodium Or thope 2.5 mg 2.5 mg 2.5 mg dic tablet TAKE tablet TAKE tablet Sports 6 TABLETS 6 TABLETS TAKE 6 Med icin BY MOUTH BY MOUTH TABLETS [...] A DAY MOUTH e TWICE A DAY prednisone prednisone No prednisone Renae 5 mg tablet 5 mg tablet 5 mg O rthope TAKE 1 TAKE 1 tablet dic TABLET BY TABLET BY TAKE 1 Spo rts MOUTH MOUTH TABLET BY Me dicin DIRECTED DIRECTED MOUTH e TAKE TAKE DIRECTED 4-3-2-1 4-3-2-1 TAKE TABS IN AM TABS IN AM 4-3-2-1 WITH FOOD WITH FOOD TABS IN AM FOR 3-3-3-3 FOR 3-3-3-3 WITH FOOD DAYS EACH DAYS EACH FOR DOSE, FOR DOSE, FOR 3-3-3-3 12 DAYS 12 DAYS DAYS EACH TOTAL TOTAL DOSE, FOR 12 DAYS TOTAL Rinvoq 15 Rinvoq 15 No 1 Q1D Rinvoq 15 Renae mg mg mg Orthope tablet,exte tablet,exte tablet,ext dic nded nded ended Sports release release release Medici n Take 1 Take 1 Take 1 e tablet tablet tablet every day every day every day by oral by oral by oral route for route for route for 90 days. 90 days. 90 days. rosuvastati rosuvastati No rosuvastat Renae n 10 mg n 10 mg in 10 mg Ortho pe tablet TAKE tablet TAKE tablet dic ONE (1) ONE (1) TAKE ONE Sport s TABLET(S) TABLET(S) (1) Medic in BY MOUTH BY MOUTH TABLET(S) e ONCE A DAY ONCE A DAY BY MOUTH IN THE IN THE ONCE A DAY EVENING. EVENING. IN THE EVENING. valsartan valsartan No valsartan Renae 160 mg 160 mg 160 mg Orthope tablet TAKE tablet TAKE tablet dic ONE (1) ONE (1) TAKE ONE Sport s TABLET(S) TABLET(S) (1) Medic in BY MOUTH BY MOUTH TABLET(S) e EVERY EVERY BY MOUTH MORNING. MORNING. EVERY MORNING. zinc zinc No zinc Renae sulfate 50 sulfate 50 sulfate 50 Orthope mg zinc mg zinc mg zinc dic (220 mg) (220 mg) (220 mg) Spo rts capsule capsule capsule Medici n TAKE 1 TAKE 1 TAKE 1 e CAPSULE BY CAPSULE BY CAPSULE BY MOUTH EVERY MOUTH EVERY MOUTH DAY IN THE DAY IN THE EVERY DAY MORNING MORNING IN THE MORNING acetaminoph acetaminoph No 1 Q6H acetaminop Renae [...] itching itching days. as needed for itching Vital Signs Vital Name Observation Time Observation Value Comments Source BP Diastolic 2022-11-15 00:00:00 132 mm[Hg] [facility] Height 2022-11-15 00:00:00 70 [in_i] [facility] BMI (Body Mass 2022-11-15 00:00:00 34.4 kg/m2 Renae Orthopedic Index) Sports Medicine BP Systolic 2022-11-15 00:00:00 175 mm[Hg] [facility] Body Weight 2022-11-15 00:00:00 240 [lb_av] [facility] BP Diastolic 2022-04-05 00:00:00 128 mm[Hg] [facility] Height 2022-04-05 00:00:00 70 [in_i] [facility] BMI (Body Mass 2022-04-05 00:00:00 34.4 kg/m2 Renae Orthopedic Index) Sports Medicine BP Systolic 2022-04-05 00:00:00 164 mm[Hg] [facility] Body Weight 2022-04-05 00:00:00 240 [lb_av] [facility] Procedures This patient has no known procedures. Plan of Care Planned Activity Planned Date Details Comments Source Future Scheduled 2023-01-25 COVID-19 VACCINE (#1) [facility] Test 20:22:45 [code = COVID-19 VACCINE (#1)] Future Scheduled 2023-01-25 Pneumococcal Vaccine: [facility] Test 20:22:45 Pediatrics (0 to 5 Years) and At-Risk Patients (6 to 64 Years) (1 - PCV) [code = Pneumococcal Vaccine: Pediatrics (0 to 5 Years) and At-Risk Patients (6 to 64 Years) (1 - PCV)] Future Scheduled 2023-01-25 DIABETES: [facility]INAL [facility] Test 20:22:45 EXAM [code = DIABETES: RETINAL EYE EXAM] Future Scheduled 2023-01-25 DIABETIC FOOT [facility]AM [facility] Test 20:22:45 [code = DIABETIC FOOT EXAM] Future Scheduled 2023-01-25 URINE MICROALBUMIN [facility] Test 20:22:45 [code = URINE MICROALBUMIN] Future Scheduled 2023-01-25 Hepatitis C screening [facility] Test 20:22:45 (procedure) [code = 527795480] Future Scheduled 2023-01-25 [facility]ACCINE [facility] Test 20:22:45 [code = INFLUENZA VACCINE] Future Scheduled 2022-08-31 COVID-19 VACCINE (#1) [facility] Test 11:59:42 [code = COVID-19 VACCINE (#1)] Future Scheduled 2022-08-31 Pneumococcal Vaccine: [facility] Test 11:59:42 Pediatrics (0 to 5 Years) and At-Risk Patients (6 to 64 Years) (1 - PCV) [code = Pneumococcal Vaccine: Pediatrics (0 to 5 Years) and At-Risk Patients (6 to 64 Years) (1 - PCV)] Future Scheduled 2022-08-31 DIABETES: RETINAL EYE [facility] Test 11:59:42 EXAM [code = DIABETES: RETINAL EYE EXAM] Future Scheduled 2022-08-31 DIABETIC FOOT EXAM [facility] Test 11:59:42 [code = DIABETIC FOOT EXAM] Future Scheduled 2022-08-31 URINE MICROALBUMIN [facility] Test 11:59:42 [code = URINE MICROALBUMIN] Future Scheduled 2022-08-31 Hepatitis C screening [facility] Test 11:59:42 (procedure) [code = 319684603] Future Scheduled 2022-08-31 [facility]ACCINE [facility] Test 11:59:42 [code = INFLUENZA VACCINE] Encounters Start End Encounter Admission Attending Care Care Encounter Source Date/Time Date/Time Type Type Clinicians Facility Department ID 2022-11-15 2022-11-15 Outpatient AO_Miguel_Ilia [facility] AO [id number] Renae 00:00:00 00:00:00 Vasyl [id number] Orthop e dic Sports Medicin e 2022-11-15 2022-11-15 Annel AOS[facility] [place] - Ortho [id number] Renae 00:00:00 00:00:00 MD Miguel: Glo Andrews [address] AO_Ofc dic [facility] [address] [facility] [address] [place] [address] , Ph. 2022-09-13 2022-09-13 Outpatient AO_Mihu_Ram AOSM AOSM [id number] Renae 00:00:00 00:00:00 Vasyl [id number] Orthop e dic Sports Medicin e 2022-04-16 2022-04-16 Outpatient AO_Mihu_Ram AOSM AOSM [id number] Renae 00:00:00 00:00:00 Vasyl [id number] Orthop e dic Sports Medicin e 2022-04-05 2022-04-05 Outpatient AO_Mihu_Ram AOSM AOSM [id number] Renae 05:42:00 05:42:00 Vasyl [id number] Orthop e dic Sports Medicin e 2022-04-05 2022-04-05 Outpatient Mihu, AOSM AOSM [id number] 00:00:00 00:00:00 Annel [id number] 2022-04-05 Annel [facility] [place] - Ortho [id number] Renae 00:00:00 00:00:00 MD Miguel: Glo Andrews 9[address] AO_Ofc dic Morin [facility] [address] [facility] [address] [place] [address] , Ph. 2022-04-04 2022-04-04 Outpatient AO_Mihu_Ram AOSM AOSM [id number] Renae 02:11:00 02:11:00 Vasyl [id number] Orthop e dic Sports Medicin e 2022-04-03 2022-04-03 Outpatient AO_Mihu_Ram AOSM AOSM [id number] Renae 01:32:00 01:32:00 Vasyl [id number] Orthop e dic Sports Medicin e 2022-02-28 2022-02-28 Outpatient AO_Mihu_Ram AOSM AOSM [id number] Renae 02:51:00 02:51:00 Vasyl [id number] Orthop e dic Sports Medicin e 2022-02-28 2022-02-28 Outpatient AO_Mihu_Ram AOSM AOSM [id number] Renae 02:51:00 02:51:00 Vasyl [id number] Orthop e dic Sports Medicin e 2020-02-28 2020-03-02 [facility], [facility] 089 [id number] Conrad 00:00:00 00:00:00 DOMINIQUE [address] Results Test Description Test Time Test Comments Results Result Comments Source SARS coronavirus 2 RNA [Presence] in Respiratory speci men by 2020-02-29 20:01:51 ALFREDO with probe detection Test Item Value Reference Range Interpretation Comme nts SARS coronavirus 2 RNA [Presence] in Respiratory Not detected Not-D etected specimen by ALFREDO with probe detection (test code = 04171-6) SHARDA GANN
[2023-01-25] MEDS ORDERED: MORPHINE 4 MG/ML SYR ONE (20:53)
[2023-01-25] MEDS ORDERED: ONDANSETRON 4 MG/2 ML VIAL ONE (20:54)
[2023-01-25] MEDS ORDERED: NA CHLORIDE 0.9% 1,000 ML ONE (20:54)
[2023-01-25 21:08] LABS: Absolute Lymphocytes (CBC) 16.4 K/uL (0.7-4.9); Hematocrit 40.4 % (39.6-49.0); Lymphocytes % 70.7 % (15.3-44.8); MCV 85.8 fL (80-100); MPV 6.4 fL (7.6-11.3); RBC Red Blood Cell Count 4.71 M/uL (4.33-5.43)
[2023-01-25 21:30] LABS: Albumin 2.5 g/dL (3.4-5.0); Bilirubin Total 0.4 mg/dL (0.2-1.0); Protein, Total 7.1 g/dL (6.4-8.2)
[2023-01-25 21:31] LABS: Potassium 4.3 mEq/L (3.5-5.1)
--- NOTE | 2023-01-25 21:38 | RAD REPORT ---
EXAM DESCRIPTION: US - Abdomen Exam Limited - 01/25/2023 9:27 pm CLINICAL HISTORY: ABD PAIN COMPARISON: <Comparisons> FINDINGS: The gallbladder demonstrates no gallstones. No pericholecystic fluid or gallbladder wall t hickening. The common bile duct is normal measuring 3 mm. The liver demonstrates no findings of intrahepatic biliary dilatation. IMPRESSION: Unremarkable examination.
[2023-01-25 21:57] LABS: Blood Morphology Comment NOT SEEN (NOT SEEN); Platelet Estimate ADEQ
--- NOTE | 2023-01-25 22:09 | RAD REPORT ---
EXAM DESCRIPTION: CTAbdomen Pelvis W Contrast - 01/25/2023 10:01 pm CLINICAL HISTORY: Abdominal pain. Abd pain;Nausea / vomiting COMPARISON: <Comparisons> TECHNIQUE: Biphasic CT imaging of the abdomen and pelvis was performed with 100 ml non-ionic IV cont rast. All CT scans are performed using dose optimization technique as appropriate and may include automated exposure control or mA/KV adjustment according to patient size. FINDINGS: The lung bases are clear. The liver, spleen, pancreas, adrenal glands are within normal limits. Mild caliceal stones are presen t in both kidneys without hydronephrosis. No bowel obstruction, free air, free fluid or abscess. The appendix is normal. No evidence of signi ficant lymphadenopathy. No suspicious bony findings. IMPRESSION: Bilateral caliceal stones without hydronephrosis.
[2023-01-25 22:40] LABS: Specific Gravity 1.011 (1.005-1.030); Urine Bacteria <20 /HPF (<20); Urine Bilirubin NEGATIVE (Negative); Urine Blood 2+ (Negative); Urine Clarity Turbid (Clear); Urine Color Light-Yellow (Yellow); Urine Glucose NEGATIVE (Negative); Urine Mucus Slight /HPF (None Seen); Urine Protein TRACE (Negative); Urine Urobilinogen Normal (Normal); Urine pH 5.5 (5.0-7.0)
--- NOTE | 2023-01-25 22:47 | EDPHYS ---
Physician Documentation [facility] Name: Seble Potter II Age: 37 yrs Sex: Male : 1985 Arrival Date: 01/25/2023 Time: 20:17 Bed 17 Private MD: ED Physician Jesus Mckeon HPI: 01/25 20:57 This 37 yrs old Male presents to ER via Ambulatory with complaints of Nausea/Vomiting. rn 20:57 The patient presents to the emergency department with nausea, vomiting, diarrhea, rn abdominal pain. Onset: The symptoms/episode began/occurred 2 day(s) ago. Possible causes: unknown. 20:58 The symptoms are aggravated by nothing. The symptoms are alleviated by nothing. rn Associated signs and symptoms: Pertinent positives: abdominal pain, diarrhea, nausea, vomiting, Pertinent negatives: fever, GI bleeding. Severity of symptoms: At their worst the symptoms were moderate in the emergency department the symptoms are unchanged. The patient has not experienced similar symptoms in the past. The patient has not recently seen a physician. Pt reports a couple of days of abd pain, right sided, assoc with nausea/vomiting/diarrhea. Also reports flare up of ankylosing spondylitis with right shoulder pain, as well as dental pain. No trauma or fall. + subjective fever and chills. Thinks passed kidney stone yesterday. No urinary symptoms. . Historical: - Allergies: 20:45 Sulfa (Sulfonamide Antibiotics); pf1 - PMHx: 20:45 ankylosing spondilitis; Gout; Kidney stones; pf1 - Immunization history:: Adult Immunizations not up to date, Client reports having NOT received the Covid vaccine. Last tetanus immunization: > 10 years ago Flu vaccine is not up to date. - Social history:: Smoking status: Patient/guardian denies using tobacco, Patient/guardian denies using alcohol, street drugs. - Family history:: not pertinent. - Hospitalizations: : No recent hospitalization is reported. ROS: 20:58 Constitutional: + subjective fever and chills Eyes: Negative for injury, pain, redness, rn and discharge, ENT: + dental pain Cardiovascular: Negative for chest pain, palpitations, and edema, Respiratory: Negative for shortness of breath, cough, wheezing, and pleuritic chest pain, Abdomen/GI: Negative for constipation MS/Extremity: Negative for injury and deformity, Skin: Negative for injury, rash, and discoloration, Neuro: Negative for headache, weakness, numbness, tingling, and seizure. Exam: 20:58 Constitutional: This is a well developed, well nourished patient who is awake, alert, rn and in no acute distress. ENT: dry MM, right posterior lower molar cutting through gum, no abscess, no drainage Cardiovascular: Tachycardic, regular. No pulse deficits. Respiratory: No increased work of breathing, no retractions or nasal flaring. Abdomen/GI: soft, no focal tenderness, neg box Skin: Warm, dry MS/ Extremity: Pulses equal, no cyanosis. Neuro: Awake and alert, GCS 15 Vital Signs: 20:38 BP 116 / 103; Pulse 108; Resp 18; Temp 99.2; Pulse Ox 99% on R/A; Weight 111.13 kg; pf1 Height 5 ft. 10 in. ; Pain 7/10; 21:01 BP 117 / 70; Pulse 95; Resp 18 S; Pulse Ox 100% on R/A; aa9 22:15 BP 118 / 78; Pulse 90; Resp 18 S; Pulse Ox 99% on R/A; aa9 23:30 BP 116 / 71; Pulse 89; Resp 18 S; Pulse Ox 99% on R/A; aa9 01/26 00:23 BP 119 / 74; Pulse 95; Resp 16; Temp 98.7; Pulse Ox 97% on R/A; Pain 5/10; pf1 01/25 20:38 Body Mass Index 35.15 (111.13 kg, 177.8 cm) 1 01/25 20:38 Pain Scale: Adult pf1 01/26 00:23 Pain Scale: Adult pf1 MDM: 01/25 20:23 Patient medically screened. rn 22:45 Differential diagnosis: Nonspecific abd pain, gastritis, cholecystitis, pancreatitis, rn appendicitis, diverticulitis, viral gastroenteritis, gastroenteritis. Data reviewed: vital signs, nurses notes, lab test result(s), radiologic studies, CT scan, ultrasound, and as a result, I will discharge patient. Counseling: I had a detailed discussion with the patient and/or guardian regarding: the historical points, exam findings, and any diagnostic results supporting the discharge/admit diagnosis, lab results, radiology results, the need for outpatient follow up, to return to the emergency department if symptoms worsen or persist or if there are any questions or concerns that arise at home. Response to treatment: the patient's symptoms have markedly improved after treatment, and as a result, I will discharge patient. Special discussion: I discussed with the patient/guardian in detail that at this point there is no indication for admission to the hospital. It is understood, however, that if the symptoms persist or worsen the patient needs to return immediately for re-evaluation. 01/25 20:42 Order name: CBC with Diff; Complete Time: 22:14 rn 01/25 20:42 Order name: CMP; Complete Time: 21:57 rn 01/25 20:42 Order name: Lipase; Complete Time: 21:57 rn 01/25 20:58 Order name: Flu; Complete Time: 21:57 rn 01/25 21:58 Order name: Manual Differential; Complete Time: 22:14 EDOK 01/25 22:15 Order name: Urinalysis w/ reflexes; Complete Time: 22:43 01/25 22:44 Order name: Urine Culture EDOK 01/25 20:42 Order name: CT Abd/Pelvis - IV Contrast Only; Complete Time: 22:14 rn 01/25 20:42 Order name: US Abdomen Limited; Complete Time: 21:57 rn 01/25 20:42 Order name: IV Saline Lock; Complete Time: 20:46 rn 01/25 20:42 Order name: Labs collected and sent; Complete Time: 21:01 rn Administered Medications: 20:54 Drug: Ondansetron IVP 4 mg Route: IVP; Site: right antecubital; aa9 21:27 Follow up: Response: No adverse reaction aa9 21:01 Drug: NS 0.9% IV 1000 ml Route: IV; Rate: 1 bolus; Site: right antecubital; aa9 22:59 Follow up: Response: No adverse reaction; IV Status: Completed infusion; IV Intake: aa9 1000ml 21:02 Drug: morphine IVP or IV 4 mg Route: IVP; Infused Over: 4 mins; Site: right antecubital;aa9 21:28 Follow up: Response: No adverse reaction aa9 22:58 Drug: levofloxacin IVPB 750 mg Volume: 150 ml; Route: IVPB; Infused Over: 90 mins; aa9 Site: right antecubital; 23:30 Follow up: Response: No adverse reaction; Marked relief of symptoms pf1 01/26 00:30 Follow up: IV Status: Completed infusion; IV Intake: 150ml pf1 Disposition Summary: 01/25/23 22:46 Discharge Ordered Location: Home rn Problem: new rn Symptoms: have improved rn Condition: Stable rn Diagnosis - UTI/ Urinary tract infection, site not specified rn - Nausea with vomiting, unspecified rn - Abdominal pain, unspecified rn Followup: rn - With: Private Physician - When: As needed - Reason: Recheck today's complaints, Re-evaluation by your physician Discharge Instructions: - Discharge Summary Sheet rn - Abdominal Pain, Adult rn - Urinary Tract Infection, Adult rn Forms: - Medication Reconciliation Form rn - Thank You Letter rn - Antibiotic retail furniture sales - Prescription Opioid Use rn Prescriptions: - ondansetron 4 mg Oral Tablet,disintegrating - take 1 tablet by ORAL route every 8-10 hours As needed; 12 tablet; Refills: 0, rn Product Selection Permitted - Medrol (Alex) 4 mg Oral Tablets, Dose Pack - take 1 tablet by ORAL route as directed - follow package instructions; 1 rn packet; Refills: 0, Product Selection Permitted - levofloxacin 500 mg Oral Tablet - take 1 tablet by ORAL route once daily for 7 days; 7 tablet; Refills: 0, rn Product Selection Permitted Signatures: Dispatcher [employer] EDJesus Craig MD MD rn Avalos, Aylin RN ALTON aa9 Dee shields RN RN pf1
--- NOTE | 2023-01-25 22:47 | ER ---
Nurse's Notes [facility] Name: Seble Potter II Age: 37 yrs Sex: Male : 1985 Arrival Date: 01/25/2023 Time: 20:17 Bed 17 Private MD: Diagnosis: UTI/ Urinary tract infection, site not specified;Nausea with vomiting, unspecified;Abdominal pain, unspecified Presentation: 01/25 20:38 Chief complaint: Patient states: C/O nausea and vomiting approximately 1.5 weeks, pf1 vomiting x 1 episode in the past 24 hours. Patient stated passed a kidney stone yesterday. Patient also C/O right shoulder pain of 7,onset worse yesterday. Patient stated history of kidney stones and ankylo spondylitis. Patient stated has a right lower wisdom tooth that is also causing some nausea and vomiting. Coronavirus screen: Vaccine status: Patient reports being unvaccinated. Client denies travel out of the [place] in the last 14 days. Client presents with at least one sign or symptom that may indicate coronavirus-19. Ebola Screen: Patient negative for fever greater than or equal to 101.5 degrees Fahrenheit, and additional compatible Ebola Virus Disease symptoms. Initial Sepsis Screen: Does the patient meet any 2 criteria? HR > 90 bpm. No. Patient's initial sepsis screen is negative. Does the patient have a suspected source of infection? No. Patient's initial sepsis screen is negative. Risk Assessment: Do you want to hurt yourself or someone else? Patient reports no desire to harm self or others. 20:38 Method Of Arrival: Ambulatory pf1 20:38 Acuity: KARL 3 pf1 Historical: - Allergies: 20:45 Sulfa (Sulfonamide Antibiotics); pf1 - PMHx: 20:45 ankylosing spondilitis; Gout; Kidney stones; pf1 - Immunization history:: Adult Immunizations not up to date, Client reports having NOT received the Covid vaccine. Last tetanus immunization: > 10 years ago Flu vaccine is not up to date. - Social history:: Smoking status: Patient/guardian denies using tobacco, Patient/guardian denies using alcohol, street drugs. - Family history:: not pertinent. - Hospitalizations: : No recent hospitalization is reported. Screenin:35 [facility] ED Fall Risk Assessment (Adult) History of falling in the last 3 months, aa9 including since admission No falls in past 3 months (0 pts) Confusion or Disorientation No (0 pts) Intoxicated or Sedated No (0 pts) Impaired Gait No (0 pts) Mobility Assist Device Used No (0 pt) Altered Elimination No (0 pt) Score/Fall Risk Level 0 - 2 = Low Risk Oriented to surroundings, Maintained a safe environment, Educated pt \T\ family on fall prevention, incl call for assistance when getting out of bed. Abuse screen: Denies threats or abuse. Denies injuries from another. Nutritional screening: Has had N/V for 3 or more days. Tuberculosis screening: No symptoms or risk factors identified. Assessment: 20:50 General: Appears in no apparent distress. comfortable, Behavior is calm, cooperative. aa9 Pain: Complains of pain in tooth, right arm, right lateral side. Neuro: Level of Consciousness is awake, alert, obeys commands, Oriented to person, place, time, situation. Cardiovascular: Patient's skin is warm and dry. Respiratory: Airway is patent Respiratory effort is even, unlabored. GI: Abdomen is obese, Reports nausea, Patient currently denies diarrhea, vomiting. 21:37 Reassessment: Patient appears in no apparent distress at this time. pt ambulated to [facility] restroom in hallway independently. 22:24 Reassessment: Patient appears in no apparent distress at this time. Patient and/or aa9 family updated on plan of care and expected duration. Pain level reassessed. Patient is alert, oriented x 3, equal unlabored respirations, skin warm/dry/pink. Patient states symptoms have improved. 22:58 Reassessment: Patient appears in no apparent distress at this time. discharge pending aa9 Levofloxican infusion completion. Vital Signs: 20:38 BP 116 / 103; Pulse 108; Resp 18; Temp 99.2; Pulse Ox 99% on R/A; Weight 111.13 kg; pf1 Height 5 ft. 10 in. ; Pain 7/10; 21:01 BP 117 / 70; Pulse 95; Resp 18 S; Pulse Ox 100% on R/A; aa9 22:15 BP 118 / 78; Pulse 90; Resp 18 S; Pulse Ox 99% on R/A; aa9 23:30 BP 116 / 71; Pulse 89; Resp 18 S; Pulse Ox 99% on R/A; aa9 05 00:23 BP 119 / 74; Pulse 95; Resp 16; Temp 98.7; Pulse Ox 97% on R/A; Pain 5/10; pf1 01/25 20:38 Body Mass Index 35.15 (111.13 kg, 177.8 cm) pf1 01/25 20:38 Pain Scale: Adult pf1 01/26 00:23 Pain Scale: Adult pf1 ED Course: 01/25 20:19 Patient arrived in ED. jj6 20:23 Jesus Mckeon MD is Attending Physician. rn 20:26 Janki Villarreal, ALTON is Primary Nurse. aa9 20:45 Triage completed. pf1 20:50 Arm band placed on. pf1 20:51 Radiology exam delayed due to lab results not completed at this time. (BUN/Creatinine) jg10 IV insertion attempt and/or patient not having appropriate IV at this time. 20:54 Inserted saline lock: 20 gauge in right antecubital area, using aseptic technique. aa9 Blood collected. 21:01 CBC with Diff Sent. aa9 21:01 CMP Sent. aa9 21:01 Lipase Sent. aa9 21:14 Flu Sent. aa9 21:14 Patient has correct armband on for positive identification. Bed in low position. Side aa9 rails up X2. Pulse ox on. NIBP on. 21:26 US Abdomen Limited In Process Unspecified. EDMS 22:03 CT Abd/Pelvis - IV Contrast Only In Process Unspecified. EDMS 22:24 Urinalysis w/ reflexes Sent. aa9 01/26 00:31 No provider procedures requiring assistance completed. IV discontinued, intact, pf1 bleeding controlled, No redness/swelling at site. Pressure dressing applied. Administered Medications: 01/25 20:54 Drug: Ondansetron IVP 4 mg Route: IVP; Site: right antecubital; aa9 21:27 Follow up: Response: No adverse reaction aa9 21:01 Drug: NS 0.9% IV 1000 ml Route: IV; Rate: 1 bolus; Site: right antecubital; aa9 22:59 Follow up: Response: No adverse reaction; IV Status: Completed infusion; IV Intake: aa9 1000ml 21:02 Drug: morphine IVP or IV 4 mg Route: IVP; Infused Over: 4 mins; Site: right antecubital;aa9 21:28 Follow up: Response: No adverse reaction aa9 22:58 Drug: levofloxacin IVPB 750 mg Volume: 150 ml; Route: IVPB; Infused Over: 90 mins; aa9 Site: right antecubital; 23:30 Follow up: Response: No adverse reaction; Marked relief of symptoms pf1 01/26 00:30 Follow up: IV Status: Completed infusion; IV Intake: 150ml pf1 Medication: 00:31 VIS not applicable for this client. pf1 Intake: 01/25 22:59 IV: 1000ml; Total: 1000ml. aa9 01/26 00:30 IV: 150ml; Total: 1150ml. pf1 Outcome: 01/25 22:46 Discharge ordered by . rn 01/26 00:31 Discharged to home ambulatory. pf1 Condition: good Discharge instructions given to patient, Instructed on discharge instructions, follow up and referral plans. Demonstrated understanding of instructions, follow-up care, medications, Prescriptions given X 3. 00:32 Patient left the ED. pf1 Signatures: Dispatcher [employer] EDMS Jesus Mckeon MD MD rn Jeffries, Jennifer jj6 Janki Villarreal RN RN aa9 Kalani Robledo j0 Dee shields RN RN pf1 Corrections: (The following items were deleted from the chart) 00:35 00:15 Reassessment: Patient appears in no apparent distress at this time. Dorie Gusman at aa9 bedside attempting IV site and blood recollection aa9
[2023-01-25] MEDS ORDERED: Levofloxacin 750mg IV 750 MG/150 ML BAG IV ONE (23:01)
[2023-01-26 00:59] VITALS: BP 119/74; TEMP 98.7; O2SAT 97
== END 2023-01-26 00:32 | disposition home or self-care (01) ==
LOC: ER 20:17
DX: N39.0 Urinary tract infection, site not specified (principal); R10.9 Unspecified abdominal pain
CPT/HCPCS: 36415; 74177; 76705; 80053; 81001; 83690; 85025; 87086; 87088; 87804; 96361; 96365; 96366; 96375; 99284; J2405; J7030; Q9967

== ENCOUNTER 2023-02-17 19:28 | Emergency (ER) | payer SELFPAY ==
--- OUTSIDE RECORDS SUMMARY | 2023-02-17 19:32 | XMS REPORT | Continuity of Care Document ---
:[address] [facility] t Address [address] [place] [address]. [address] [place] [address] Care Team Providers Name Role Phone Ghada Primary Care Physician Matt Attending Clinician Unavailable Annel Rivera Attending Clinician [phone] DOMINIQUE KO Attending Clinician Unavailable MD DOMINIQUE KO Attending Clinician Unavailable Matt Admitting Clinician Unavailable SHUBHAM HILLS Admitting Clinician Unavailable MD SHUBHAM HILLS Admitting Clinician Unavailable Payers Payer Name Policy Type Policy Number Effective Date Expiration Date S mike [place] [id number] 2022 (PPO) 00:00:00 [facility] [id number] 2020 EV BENEFITS 00:00:00 MANAGEMENT Problems Condition Condition Condition Status Onset Resolution Last Treating Co mments Source Name Details Category Date Date Treatment Clinician Date 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 1- Or thope gout Gout 00:00: dic 00 [...] Active M ethodi osis with osis with 02-27 urinary urinary 00:00: Hospita obstructio obstructio 00 l n due to n due to renal renal calculus calculus Type 2 Type 2 Disease Active [facility] diabetes diabetes 14 mellitus, mellitus, 00:00: Hosp keiry without without 00 l long-term long-term current current use of use of insulin insulin Gout Gout Disease Active [facility] 00:00: Hospita 00 l Hydronephr Hydronephr Disease Active M ethodi osis osis 614 concurrent concurrent 00:00: Ho spita with and [...] [facility] SULFA Allergy Active Renae (SULFONA to Orth[facility] substanc dic ANTIBIOT e Sports ICS) Medicin e Family History Family Member Diagnosis Comments Start Date Stop Date Source Natural father Diabetes [facility] Paternal grandfather Diabetes Meth [facility] Paternal uncle Diabetes [facility] Social History Social Habit Start Date Stop Date Quantity Comments Source Gender identity [facility] Sexual [facility] History of tobacco Chews Tobacco [facility] History of Social 2022-11-21 2022-11-[address] function 00:00:00 00:00:00 Hospital Alcohol intake 2020-03-03 2020-03-03 Current drinker [facility] dist 00:00:00 00:00:00 of [facility] (finding) Tobacco use and 2018-01-20 2018-01-20 Smokeless [facility] exposure 00:00:00 00:00:00 tobacco non-user Hospital Cigarettes smoked 2018-01-20 2018-01-[address] current (pack per 00:00:00 00:00:00 Hospita l day) - Reported Cigarette 2018-01-20 2018-01-20 [facility] pack-years 00:00:00 00:00:00 Hospital Tobacco Comment 2016-02-23 2016-02-23 quit 02/06/[address] 00:00:00 00:00:00 Hospital Alcohol Comment 2016-02-23 2016-02-23 rarely [facility] 00:00:00 00:00:00 Hospital Sex Assigned At [birth year] [facility] 00:00:00 00:00:00 Hospital Smoking Status Start Date Stop Date Source Former Smoker [facility] Smokes tobacco daily 2015-10-17 00:00:00 [facility] Medications Ordered Filled Start Stop [...] tablet 00 daily. l baclofen 2018-0 Yes [id number] TAKE 1 TO [facility] (LIORESAL) 1-[address] 10 MG 00:00: BY MOUTH Hospita tablet 00 AT BEDTIME l FOR MUSCLE SPASMS baclofen 2018-0 Yes [id number] TAKE 1 TO [facility] (LIORESAL) 1-[address] 10 MG 00:00: BY MOUTH Hospita tablet 00 AT BEDTIME l FOR MUSCLE SPASMS baclofen 2018-0 Yes [id number] TAKE 1 TO [facility] (LIORESAL) 1-[address] 10 MG 00:00: BY MOUTH Hospita tablet 00 AT BEDTIME l FOR MUSCLE SPASMS folic acid folic acid No folic acid [...] BY MOUTH DAY. DAY. TWICE A DAY. Vital Signs Vital Name Observation Time Observation [...] BP Systolic 2022-04-05 00:00:00 164 mm[Hg] [facility] Body Weight 2022-04-05 00:00:00 240 [lb_av] [facility] Procedures This patient has no known procedures. Plan of Care Planned Activity Planned Date Details Comments Source Future Scheduled 2023-01-25 COVID-19 VACCINE (#1) [facility] Hospital Test 20:22:45 [code = COVID-19 VACCINE (#1)] Future Scheduled 2023-01-25 Pneumococcal Vaccine: [facility] Test 20:22:45 Pediatrics (0 to 5 Years) and At-Risk Patients (6 to 64 Years) (1 - PCV) [code = Pneumococcal Vaccine: Pediatrics (0 to 5 Years) and At-Risk Patients (6 to 64 Years) (1 - PCV)] Future Scheduled 2023-01-25 DIABETES: RETINAL EYE [facility] Test 20:22:45 EXAM [code = DIABETES: RETINAL EYE EXAM] Future Scheduled 2023-01-25 [facility] Test 20:22:45 [code = DIABETIC FOOT EXAM] Future Scheduled 2023-01-25 URINE [facility]IN [facility] Test 20:22:45 [code = URINE MICROALBUMIN] Future Scheduled 2023-01-25 Hepatitis C screening [facility] Test 20:22:45 (procedure) [code = 352989490] Future Scheduled 2023-01-25 INFLUENZA VACCINE [facility] Test 20:22:45 [code = INFLUENZA VACCINE] Future Scheduled 2023-01-25 COVID-19 VACCINE (#1) [facility] Hospital Test 20:22:45 [code = COVID-19 VACCINE (#1)] Future Scheduled 2023-01-25 Pneumococcal Vaccine: [facility] Test 20:22:45 Pediatrics (0 to 5 Years) [...] [facility] Hospital Test 20:22:45 (procedure) [code = 539568080] Future Scheduled 2023-01-25 INFLUENZA VACCINE [facility] Test 11:59:42 (procedure) [code = 757820592] Future Scheduled 2022-08-31 INFLUENZA VACCINE [facility] Test 11:59:42 [code = INFLUENZA VACCINE] Encounters Start End Encounter Admission Attending Care Care Encounter Source Date/Time Date/Time Type Type Clinicians Facility Department ID 2022-11-15 2022-11-15 Outpatient [facility] [id number] Renae 00:00:00 00:00:00 Vasyl [id number] [facility] 2022-11-15 2022-11-15 Annel BRADY [place] - Ortho [id number] Renae 00:00:00 00:00:00 MD Miguel: lGo Andrews 9645 AO_Ofc dic Morin TLO[facility] [facility] in [address] [address] , Ph. 2022-09-13 2022-09-13 Outpatient AO_Mihu_Ram AOSM AOSM [id number] Renae 00:00:00 00:00:00 Vasyl [id number] [facility] 2022-04-16 2022-04-16 Outpatient AO_Mihu_Ram AOSM AOSM [id number] Renae 00:00:00 00:00:00 Vasyl [id number] Orthop e [facility] 2022-04-05 2022-04-05 Outpatient AO_Mihu_Ram AOSM AOSM [id number] Renae 05:42:00 05:42:00 Vasyl [id number] [facility]op [facility] 2022-04-05 2022-04-05 Outpatient Mifrantz, AOSM AOSM [id number] 00:00:00 00:00:00 Annel [id number] 2022-04-05 Annel AOSM [place] - Ortho [id number] Renae 00:00:00 00:00:00 MD Miguel: Glo Andrews 9645 [facility]c [facility] in [address] [address] , Ph. 2022-04-04 2022-04-04 Outpatient AO_Mihu_Ram AOSM AOSM [id number] Renae 02:11:00 02:11:00 Vasyl [id number] Orthop [facility] 2022-04-03 2022-04-03 Outpatient AO_Mihu_Ram AOSM AOSM [id number] Renae 01:32:00 01:32:00 Vasyl [id number] Orthop e [facility] 2022-02-28 2022-02-28 Outpatient AO_Mihu_Ram AOSM AOSM [id number] Renae 02:51:00 02:51:00 Vasyl [id number] Orthop [facility] 2022-02-28 2022-02-28 Outpatient AO_Mihu_Ram AOSM AOSM [id number] Renae 02:51:00 02:51:00 Vasyl [id number] Orthop e [facility] 2020-02-28 2020-03-02 [facility] 089 [id number] [place] 00:00:00 00:00:00 DOMINIQUE [address] Results Test Description Test Time Test Comments Results Result Comments Source SARS coronavirus 2 RNA [Presence] in Respiratory speci men by 2020-02-29 20:01:51 ALFREDO with probe detection Test Item Value Reference Range Interpretation Comme nts SARS coronavirus 2 RNA [Presence] in Respiratory Not detected Not-D etected specimen by ALFREDO with probe detection (test code = 12413-0) SHARDA GANN
[2023-02-17] MEDS ORDERED: COLCHICINE 0.6 MG TAB ONE (20:08)
--- NOTE | 2023-02-17 21:43 | ER ---
Nurse's Notes [facility] Name: Seble Potter II Age: 37 yrs Sex: Male : 1985 Arrival Date: 02/17/2023 Time: 19:28 Bed 12 Private MD: Diagnosis: Chronic pain syndrome-ankylosing spondylitis Presentation: 02/17 20:03 Chief complaint: Patient states: Its a diabetic flare up, I am having Leg foot pain all aa9 the way up my leg and my lower back. steroids shots usually help, not prednisone. Coronavirus screen:. Ebola Screen: No symptoms or risks identified at this time. Initial Sepsis Screen: Does the patient meet any 2 criteria? No. Patient's initial sepsis screen is negative. Does the patient have a suspected source of infection? No. Patient's initial sepsis screen is negative. Risk Assessment: Do you want to hurt yourself or someone else? Patient reports no desire to harm self or others. Onset of symptoms was February 17, 2023. 20:03 Method Of Arrival: Wheelchair aa9 20:03 Acuity: KARL 4 aa9 Triage Assessment: 20:06 General: Appears uncomfortable, unkempt, Behavior is cooperative, anxious. Pain: aa9 Complains of pain in Left Leg, lower back, blaine shoulders Pain currently is 10 out of 10 on a pain scale. Noted to be grimacing, moaning, resistant to movement. Neuro: Level of Consciousness is awake, alert, obeys commands, Oriented to person, place, time, situation. Cardiovascular:. Respiratory: Airway is patent Respiratory effort is even, unlabored. Derm: Skin is intact, is healthy with good turgor. Musculoskeletal: Swelling present in Left leg. 21:48 Pain:. mw Historical: - Allergies: 20:05 Sulfa (Sulfonamide Antibiotics); aa9 - Home Meds: 20:05 Baclofen Oral [Active]; Methotrexate Sodium Oral [Active]; Tylenol #3 Oral as needed aa9 [Active]; cimzia [Active]; - PMHx: 20:05 ankylosing spondilitis; Colitis; Diabetes - NIDDM; DVT; Gout; Kidney stones; aa9 - PSHx: 20:05 spinal fusion; aa9 - Immunization history:: Adult Immunizations up to date. - Social history:: Smoking status: Patient denies any tobacco usage or history of. Screenin:24 [facility] ED Fall Risk Assessment (Adult) History of falling in the last 3 months, kd3 including since admission No falls in past 3 months (0 pts) Confusion or Disorientation No (0 pts) Intoxicated or Sedated No (0 pts) Impaired Gait Yes (1 pt) Mobility Assist Device Used No (0 pt) Altered Elimination No (0 pt) Score/Fall Risk Level 0 - 2 = Low Risk Maintained a safe environment. Abuse screen: Denies threats or abuse. Denies injuries from another. Nutritional screening: No deficits noted. Tuberculosis screening: No symptoms or risk factors identified. Assessment: 20:20 General: Appears uncomfortable, Behavior is calm, cooperative. Neuro: Level of kd3 Consciousness is awake, alert, obeys commands, Oriented to person, place, time, situation. Cardiovascular: Patient's skin is warm and dry. Vital Signs: 20:03 BP 104 / 59; Pulse 88; Resp 19 S; Temp 97.9; Pulse Ox 97% on R/A; Weight 99.79 kg; aa9 Height 5 ft. 10 in. ; Pain 10/10; 20:56 BP 119 / 71; Pulse 84; Resp 16; Pulse Ox 98% on R/A; kd3 21:56 BP 125 / 86; Pulse 77; Resp 17; Pulse Ox 100% on R/A; ll3 20:03 Body Mass Index 31.57 (99.79 kg, 177.8 cm) aa9 20:03 Pain Scale: Adult aa9 ED Course: 19:32 Patient arrived in ED. ja2 19:40 Angi Ferreira F[facility]-C [facility]. snw 19:40 Misha Tse MD is Attending Physician. snw 20:05 Triage completed. aa9 20:11 Deirdre Craft, ALTON is Primary Nurse. kd3 20:24 Arm band placed on right wrist. kd3 20:25 Patient has correct armband on for positive identification. kd3 21:56 No provider procedures requiring assistance completed. Patient did not have IV access ll3 during this emergency room visit. Administered Medications: 20:03 Drug: Colcrys PO 1.2 mg Route: PO; kd3 21:48 Follow up: Response: No adverse reaction ll3 21:48 Drug: Hydrocodone-Acetaminophen PO (7.5 mg-325 mg) 1 tabs Route: PO; ll3 21:49 Follow up: Response: Medication administered at discharge. 3 Medication: 20:25 VIS not applicable for this client. kd3 Outcome: 21:42 Discharge ordered by . snw 21:56 Discharged to home via wheelchair, with family. ll3 21:56 Condition: stable 21:56 Discharge instructions given to patient, Instructed on discharge instructions, follow up and referral plans. medication usage, Demonstrated understanding of instructions, follow-up care, medications, Prescriptions given X 1. 21:57 Patient left the ED. 3 Signatures: Анна Hamilton, RN RN Angi Ferreira, LEAD ENGINEER-C LEAD ENGINEER-Csnw Wendi Pinto Lynsea, RN RN ll3 Deirdre Craft RN RN kd3 Janki Villarreal RN RN aa9
--- NOTE | 2023-02-17 21:43 | EDPHYS ---
Physician Documentation [facility] Name: Seble Potter II Age: 37 yrs Sex: Male : 1985 Arrival Date: 02/17/2023 Time: 19:28 Bed 12 Private MD: ED Physician Misha Tse HPI: 02/17 22:16 This 37 yrs old Male presents to ER via Wheelchair with complaints of Foot Pain, Knee snw Pain, Hip Pain, Back Pain. 22:16 The patient presents with decreased range of motion, pain, that is acute. The snw complaints affect the left leg and right leg and mid back area. Context: The problem was sustained at home, resulted from a chronic condition, the patient is not able to bear weight, the patient is not able to ambulate. Onset: The symptoms/episode began/occurred acutely. Associated signs and symptoms: The patient has no apparent associated signs or symptoms. The patient has experienced similar episodes in the past. restarted medications from Rheumatology 2 weeks ago. Historical: - Allergies: 20:05 Sulfa (Sulfonamide Antibiotics); aa9 - Home Meds: 20:05 Baclofen Oral [Active]; Methotrexate Sodium Oral [Active]; Tylenol #3 Oral as needed aa9 [Active]; cimzia [Active]; - PMHx: 20:05 ankylosing spondilitis; Colitis; Diabetes - NIDDM; DVT; Gout; Kidney stones; aa9 - PSHx: 20:05 spinal fusion; aa9 - Immunization history:: Adult Immunizations up to date. - Social history:: Smoking status: Patient denies any tobacco usage or history of. ROS: 22:16 Constitutional: Negative for fever, chills, and weight loss, Eyes: Negative for injury, snw pain, redness, and discharge, ENT: Negative for injury, pain, and discharge, Neck: Negative for injury, pain, and swelling, Cardiovascular: Negative for chest pain, palpitations, and edema, Respiratory: Negative for shortness of breath, cough, wheezing, and pleuritic chest pain, Abdomen/GI: Negative for abdominal pain, nausea, vomiting, diarrhea, and constipation, : Negative for injury, bleeding, discharge, and swelling, Skin: Negative for injury, rash, and discoloration, Neuro: Negative for headache, weakness, numbness, tingling, and seizure, Psych: Negative for depression, anxiety, suicide ideation, homicidal ideation, and hallucinations. 22:16 Back: Positive for pain at rest, pain with movement. 22:16 MS/extremity: Positive for decreased range of motion, pain, tenderness, of the right leg and left leg and mid back area. Exam: 22:15 Constitutional: This is a well developed, well nourished patient who is awake, alert, snw and in no acute distress. Head/Face: Normocephalic, atraumatic. Eyes: Pupils equal round and reactive to light, extra-ocular motions intact. Lids and lashes normal. Conjunctiva and sclera are non-icteric and not injected. Cornea within normal limits. Periorbital areas with no swelling, redness, or edema. ENT: Nares patent. No nasal discharge, no septal abnormalities noted. Tympanic membranes are normal and external auditory canals are clear. Oropharynx with no redness, swelling, or masses, exudates, or evidence of obstruction, uvula midline. Mucous membranes moist. Neck: Trachea midline, no thyromegaly or masses palpated, and no cervical lymphadenopathy. Supple, full range of motion without nuchal rigidity, or vertebral point tenderness. No Meningismus. Cardiovascular: Regular rate and rhythm with a normal S1 and S2. No gallops, murmurs, or rubs. Normal PMI, no JVD. No pulse deficits. Respiratory: Lungs have equal breath sounds bilaterally, clear to auscultation and percussion. No rales, rhonchi or wheezes noted. No increased work of breathing, no retractions or nasal flaring. Abdomen/GI: Soft, non-tender, with normal bowel sounds. No distension or tympany. No guarding or rebound. No evidence of tenderness throughout. Skin: Warm, dry with normal turgor. Normal color with no rashes, no lesions, and no evidence of cellulitis. Neuro: Awake and alert, GCS 15, oriented to person, place, time, and situation. Cranial nerves II-XII grossly intact. Motor strength 5/5 in all extremities. Sensory grossly intact. Cerebellar exam normal. Normal gait. Psych: Awake, alert, with orientation to person, place and time. Behavior, mood, and affect are within normal limits. 22:15 Chest/axilla: Inspection: normal, Palpation: tenderness, that is mild. 22:15 Back: pain, that is moderate, of the mid back area, ROM is painful. 22:15 Musculoskeletal/extremity: ROM: intact in all extremities, Sensation intact. Vital Signs: 20:03 BP 104 / 59; Pulse 88; Resp 19 S; Temp 97.9; Pulse Ox 97% on R/A; Weight 99.79 kg; aa9 Height 5 ft. 10 in. ; Pain 10/10; 20:56 BP 119 / 71; Pulse 84; Resp 16; Pulse Ox 98% on R/A; kd3 21:56 BP 125 / 86; Pulse 77; Resp 17; Pulse Ox 100% on R/A; ll3 20:03 Body Mass Index 31.57 (99.79 kg, 177.8 cm) aa9 20:03 Pain Scale: Adult aa9 MDM: 19:55 Patient medically screened. snw 22:14 Differential diagnosis: closed fracture, contusion, tendonitis, gout, chronic pain. snw Data reviewed: vital signs, nurses notes. Care significantly affected by the following chronic conditions: ankylosing spondilitis. Counseling: I had a detailed discussion with the patient and/or guardian regarding: the historical points, exam findings, and any diagnostic results supporting the discharge/admit diagnosis, the need for outpatient follow up, for definitive care, to return to the emergency department if symptoms worsen or persist or if there are any questions or concerns that arise at home. Response to treatment: the patient's symptoms have markedly improved after treatment. Special discussion: I have referred the patient to see his PCP for further evaluation of high blood pressure. Based on the history and exam findings, there is no indication for further emergent testing or inpatient evaluation. I discussed with the patient/guardian the need to see the appliance worker for further evaluation of the symptoms. Administered Medications: 20:03 Drug: Colcrys PO 1.2 mg Route: PO; kd3 21:48 Follow up: Response: No adverse reaction ll3 21:48 Drug: Hydrocodone-Acetaminophen PO (7.5 mg-325 mg) 1 tabs Route: PO; ll3 21:49 Follow up: Response: Medication administered at discharge. ll3 Disposition Summary: 02/17/23 21:42 Discharge Ordered Location: Home snw Condition: Stable snw Diagnosis - Chronic pain syndrome - ankylosing spondylitis snw Followup: snw - With: Emergency Department - When: As needed - Reason: Worsening of condition Followup: snw - With: Private Physician - When: 1 - 2 days - Reason: Recheck today's complaints, Continuance of care, Re-evaluation by your physician Discharge Instructions: - Discharge Summary Sheet snw - Chronic Pain, Adult snw - Managing Pain Without Opioids snw - Ankylosing Spondylitis, Adult snw Forms: - Medication Reconciliation Form snw - Thank You Letter snw - Antibiotic Education snw - Prescription Opioid Use snw Prescriptions: - Diclofenac Sodium 75 mg Oral Tablet Sustained Release - take 1 tablet by ORAL route 2 times per day; 30 tablet; Refills: 0, Product snw Selection Permitted Signatures: Angi Ferreira, ENGINEERING TECHNICAL SPECIALIST-C ENGINEERING TECHNICAL SPECIALIST-Csnw Benji Hensley, RN RN ll3 Deirdre Craft, RN RN kd3 Janki Villarreal, RN RN aa9
[2023-02-17] MEDS ORDERED: HYDROCODONE/APAP 7.5/325 MG TAB ONE (21:52)
[2023-02-17 22:30] VITALS: TEMP 97.9
[2023-02-17 22:33] VITALS: BP 125/86; O2SAT 100
== END 2023-02-17 21:57 | disposition home or self-care (01) ==
LOC: ER 19:28
DX: G89.4 Chronic pain syndrome (principal); M45.9 Ankylosing spondylitis of unspecified sites in spine
CPT/HCPCS: 99283

== ENCOUNTER → 2023-09-23 | Emergency (ER) | payer BC ==
[~2023-09-23] MED LIST: HYDROCODONE/APAP 5/325 MG TAB ONE; INDOMETHACIN 25 MG CAP ONE; METOPROLOL TAR 50 MG TAB ONE; MORPHINE 4 MG/ML SYR ONE
--- NOTE | 2023-09-23 19:38 | ER ---
Nurse's Notes [facility] Name: Seble Potter II Age: 38 yrs Sex: Male : 1985 Arrival Date: 09/23/2023 Time: 19:15 Bed DIS2 Private MD: Diagnosis: Gout, unspecified;ankylosing spondilitis;Essential (primary) hypertension Presentation: 09/23 19:33 Chief complaint: Patient states: RLE PAIN/EDEMA SINCE Y/D. Coronavirus screen: At this bp time, the client does not indicate any symptoms associated with coronavirus-19. Ebola Screen: No symptoms or risks identified at this time. Initial Sepsis Screen: Does the patient meet any 2 criteria? No. Patient's initial sepsis screen is negative. Does the patient have a suspected source of infection? No. Patient's initial sepsis screen is negative. Risk Assessment: Do you want to hurt yourself or someone else? Patient reports no desire to harm self or others. Onset of symptoms is unknown. 19:33 Method Of Arrival: Wheelchair bp 19:33 Acuity: KARL 4 bp Triage Assessment: 19:36 General: Appears in no apparent distress. uncomfortable, Behavior is calm, cooperative, bp appropriate for age. Pain: Complains of pain in right leg. Historical: - Allergies: 19:33 Sulfa (Sulfonamide Antibiotics); bp - PMHx: 19:33 ankylosing spondilitis; Colitis; Diabetes - NIDDM; DVT; Gout; Kidney stones; bp - PSHx: 19:33 Spinal Fusion; bp - Immunization history:: Adult Immunizations up to date. - Social history:: Smoking status: unknown. Screenin:35 [facility] ED Fall Risk Assessment (Adult) History of falling in the last 3 months, vc1 including since admission No falls in past 3 months (0 pts) Confusion or Disorientation No (0 pts) Intoxicated or Sedated No (0 pts) Impaired Gait No (0 pts) Mobility Assist Device Used No (0 pt) Altered Elimination No (0 pt) Score/Fall Risk Level 0 - 2 = Low Risk Oriented to surroundings, Maintained a safe environment, Educated pt \T\ family on fall prevention, incl call for assistance when getting out of bed. Abuse screen: Denies threats or abuse. Nutritional screening: No deficits noted. Tuberculosis screening: No symptoms or risk factors identified. Assessment: 20:36 Reassessment: Patient and/or family updated on plan of care and expected duration. Pain vc1 level reassessed. Patient is alert, oriented x 3, equal unlabored respirations, skin warm/dry/pink. Patient states feeling better. Patient states symptoms have improved. Vital Signs: 19:30 BP 198 / 108; Pulse 100; Resp 16; Pulse Ox 100% ; vc1 19:33 BP 163 / 113; Pulse 98; Resp 16; Temp 98; Pulse Ox 100% ; Weight 108.86 kg; Height 5 bp ft. 10 in. ; 20:34 BP 184 / 114; Pulse 100; Resp 17; Pulse Ox 100% ; vc1 19:33 Body Mass Index 34.44 (108.86 kg, 177.8 cm) bp ED Course: 19:17 Patient arrived in ED. jj6 19:21 [facility] Fer[facility]C [facility] snw 19:21 Paola Garner MD is Attending Physician. snw 19:35 Triage completed. bp 19:36 Arm band placed on. bp 20:35 No provider procedures requiring assistance completed. Patient did not have IV access vc1 during this emergency room visit. Administered Medications: 19:55 Drug: Metoprolol PO 50 mg PO once Route: PO; pf1 20:36 Follow up: Response: No adverse reaction; Blood pressure is lowered vc1 20:13 CANCELLED (Physician Discretion): hydrocodone-acetaminophen5 mg-325 mg 1 tabs PO once snw 20:15 Drug: Indomethacin PO 50 mg PO once Route: PO; pf1 20:37 Follow up: Response: Marked relief of symptoms vc1 20:15 Drug: morphine IM 4 mg IM once Route: IM; Site: right deltoid; pf1 20:36 Follow up: Response: Marked relief of symptoms; Pain is decreased vc1 Medication: 20:36 VIS not applicable for this client. vc1 Outcome: 19:37 Discharge ordered by . snw 20:35 Discharged to home via wheelchair, with family, vc1 20:35 Condition: good 20:35 Discharge instructions given to patient, Instructed on discharge instructions, follow up and referral plans. Demonstrated understanding of instructions, follow-up care, 20:38 Patient left the ED. vc1 Signatures: Angi Ferreira FNP-C FNP-[place] Martin Swann, RN RN bp Augusta Murphy jj6 Dorie Woodward, RN RN vc1 Dee De León RN RN pf1
--- NOTE | 2023-09-23 19:38 | EDPHYS ---
Physician Documentation [facility] Name: Seble Potter II Age: 38 yrs Sex: Male : 1985 Arrival Date: 09/23/2023 Time: 19:15 Bed DIS2 Private MD: ED Physician Paola Garner HPI: 09/23 19:43 This 38 yrs old Male presents to ER via Wheelchair with complaints of PAIN/INFLAMMATION snw IN LOW EXT. Historical: - Allergies: 19:33 Sulfa (Sulfonamide Antibiotics); bp - PMHx: 19:33 ankylosing spondilitis; Colitis; Diabetes - NIDDM; DVT; Gout; Kidney stones; bp - PSHx: 19:33 Spinal Fusion; bp - Immunization history:: Adult Immunizations up to date. - Social history:: Smoking status: unknown. ROS: 19:42 Constitutional: Negative for fever, chills, and weight loss, Eyes: Negative for injury, snw pain, redness, and discharge, ENT: Negative for injury, pain, and discharge, Neck: Negative for injury, pain, and swelling, Cardiovascular: Negative for chest pain, palpitations, and edema, Respiratory: Negative for shortness of breath, cough, wheezing, and pleuritic chest pain, Abdomen/GI: Negative for abdominal pain, nausea, vomiting, diarrhea, and constipation, Back: Negative for injury and pain, : Negative for injury, bleeding, discharge, and swelling, Skin: Negative for injury, rash, and discoloration, Neuro: Negative for headache, weakness, numbness, tingling, and seizure, Psych: Negative for depression, anxiety, suicide ideation, homicidal ideation, and hallucinations, 19:42 MS/extremity: Positive for decreased range of motion, pain, swelling, tenderness, of the right ankle, Exam: 19:38 Constitutional: This is a well developed, well nourished patient who is awake, alert, snw and in no acute distress. Head/Face: Normocephalic, atraumatic. Eyes: Pupils equal round and reactive to light, extra-ocular motions intact. Lids and lashes normal. Conjunctiva and sclera are non-icteric and not injected. Cornea within normal limits. Periorbital areas with no swelling, redness, or edema. ENT: Nares patent. No nasal discharge, no septal abnormalities noted. Tympanic membranes are normal and external auditory canals are clear. Oropharynx with no redness, swelling, or masses, exudates, or evidence of obstruction, uvula midline. Mucous membranes moist. Neck: Trachea midline, no thyromegaly or masses palpated, and no cervical lymphadenopathy. Supple, full range of motion without nuchal rigidity, or vertebral point tenderness. No Meningismus. Chest/axilla: Normal chest wall appearance and motion. Nontender with no deformity. No lesions are appreciated. Cardiovascular: Regular rate and rhythm with a normal S1 and S2. No gallops, murmurs, or rubs. Normal PMI, no JVD. No pulse deficits. Respiratory: Lungs have equal breath sounds bilaterally, clear to auscultation and percussion. No rales, rhonchi or wheezes noted. No increased work of breathing, no retractions or nasal flaring. Abdomen/GI: Soft, non-tender, with normal bowel sounds. No distension or tympany. No guarding or rebound. No evidence of tenderness throughout. Back: No spinal tenderness. No costovertebral tenderness. Full range of motion. Skin: Warm, dry with normal turgor. Normal color with no rashes, no lesions, and no evidence of cellulitis. Neuro: Awake and alert, GCS 15, oriented to person, place, time, and situation. Cranial nerves II-XII grossly intact. Motor strength 5/5 in all extremities. Sensory grossly intact. Cerebellar exam normal. Normal gait. Psych: Awake, alert, with orientation to person, place and time. Behavior, mood, and affect are within normal limits. 19:38 Musculoskeletal/extremity: Extremities: grossly normal except: noted in the right lateral malleolus, right medial malleolus and dorsum of right foot: ROM: limited active range of motion due to pain, limited passive range of motion due to pain, in the right ankle, Circulation is intact in all extremities. Sensation intact. Vital Signs: 19:30 BP 198 / 108; Pulse 100; Resp 16; Pulse Ox 100% ; vc1 19:33 BP 163 / 113; Pulse 98; Resp 16; Temp 98; Pulse Ox 100% ; Weight 108.86 kg; Height 5 bp ft. 10 in. ; 20:34 BP 184 / 114; Pulse 100; Resp 17; Pulse Ox 100% ; vc1 19:33 Body Mass Index 34.44 (108.86 kg, 177.8 cm) bp MDM: 19:32 Patient medically screened. snw 19:39 Differential diagnosis: gout, ank spondilitis, cellulitis. Data reviewed: vital signs, snw nurses notes. I considered the following discharge prescriptions or medication management in the emergency department Medications were administered in the Emergency Department. See MAR pt's PCP has sent medications for s/s to pharmacy but they will not be available until tomorrow.. Administered Medications: 19:55 Drug: Metoprolol PO 50 mg PO once Route: PO; pf1 20:36 Follow up: Response: No adverse reaction; Blood pressure is lowered vc1 20:13 CANCELLED (Physician Discretion): hydrocodone-acetaminophen5 mg-325 mg 1 tabs PO once snw 20:15 Drug: Indomethacin PO 50 mg PO once Route: PO; pf1 20:37 Follow up: Response: Marked relief of symptoms vc1 20:15 Drug: morphine IM 4 mg IM once Route: IM; Site: right deltoid; pf1 20:36 Follow up: Response: Marked relief of symptoms; Pain is decreased vc1 Disposition: 09/24 20:01 Co-signature as Attending Physician, Paola Garner MD I agree with the assessment and gb1 plan of care. I reviewed the patient's care provided by the Advanced Practice Provider and agree with the diagnosis and treatment plan. Disposition Summary: 09/23/23 19:37 Discharge Ordered Notes: Location: Home snw Condition: Stable snw Diagnosis - Gout, unspecified snw - ankylosing spondilitis snw - Essential (primary) hypertension snw Followup: snw - With: Emergency Department - When: As needed - Reason: Worsening of condition Followup: snw - With: Private Physician - When: Tomorrow - Reason: Recheck today's complaints, Continuance of care, Re-evaluation by your physician Discharge Instructions: - Discharge Summary Sheet snw - Gout snw - Hypertension, Adult snw - Low-Purine Eating Plan snw - DASH Eating Plan snw - Rehydration, Adult snw - Managing Your Hypertension snw - Form - Blood Pressure Record Sheet snw Forms: - Medication Reconciliation Form snw - Thank You Letter snw - Antibiotic Education snw - Prescription Opioid Use snw - Patient Portal Instructions snw - Leadership Thank You Letter snw Signatures: Ferreira, Angi, METAL GRADER-C METAL GRADER-Csnw Martin Swann RN RN bp Dee De León RN RN pf1 Paola Garner MD MD gb1 Dorie Woodward RN vc1 Corrections: (The following items were deleted from the chart) 09/23 20:13 19:36 HYDROcodone-acetaminophen PO 5 mg-325 mg 1 tabs PO once ordered. snw snw 20:13 20:12 HYDROcodone-acetaminophen PO 5 mg-325 mg 1 tabs PO once ordered. snw snw
[2023-09-23 23:56] VITALS: BP 184/114; TEMP 98; O2SAT 100
== END ==
LOC: ER 19:15
DX: M10.9 Gout, unspecified (principal); M45.9 Ankylosing spondylitis of unspecified sites in spine; I10 Essential (primary) hypertension; E11.9 Type 2 diabetes mellitus without complications; Z88.2 Allergy status to sulfonamides
CPT/HCPCS: 96372; 99284

== ENCOUNTER → 2023-11-30 | Emergency (ER) | payer BC ==
[~2023-11-30] MED LIST changes: -HYDROCODONE/APAP 5/325 MG TAB ONE; -INDOMETHACIN 25 MG CAP ONE; +KETOROLAC 30 MG/ML INJ ONE; +METHYLPREDNISOLONE 125 MG INJ ONE; -METOPROLOL TAR 50 MG TAB ONE; -MORPHINE 4 MG/ML SYR ONE; +cloNIDine HCL 0.1 MG TAB ONE
--- NOTE | 2023-11-30 06:16 | EDPHYS ---
Physician Documentation [facility] Name: Seble Potter II Age: 38 yrs Sex: Male : 1985 Arrival Date: 11/30/2023 Time: 02:33 Bed 16 Private MD: ED Physician Samm Ballesteros HPI: 11/29 02:45 This 38 yrs old Other Male presents to ER via Unassigned with complaints of Knee Pain, sp4 Swelling. 11/30 03:22 Patient complaining of left knee pain and swelling without any injury. sp4 Historical: - Allergies: 11/29 02:47 Sulfa (Sulfonamide Antibiotics); rv - PMHx: 02:47 ankylosing spondilitis; Colitis; Diabetes - NIDDM; DVT; Gout; Kidney stones; rv - PSHx: 02:47 Spinal Fusion; rv - Immunization history:: Adult Immunizations up to date. - Social history:: Smoking status: Patient denies any tobacco usage or history of. - Family history:: not pertinent. ROS: 11/30 03:22 Constitutional: Negative for fever, chills, and weight loss, positive left knee pain sp4 and swelling All other systems are negative, Exam: 03:22 Constitutional: This is a well developed, well nourished patient who is awake, alert, sp4 and in no acute distress. Head/Face: Normocephalic, atraumatic. Eyes: Pupils equal round and reactive to light, extra-ocular motions intact. Lids and lashes normal. Conjunctiva and sclera are not injected. Cornea within normal limits. Periorbital areas with no swelling, redness, or edema. ENT: Nares patent. No nasal discharge, no septal abnormalities noted. Tympanic membranes are normal and external auditory canals are clear. Oropharynx with no redness, swelling, or masses, exudates, or evidence of obstruction, uvula midline. Mucous membranes moist. Neck: Trachea midline, no thyromegaly or masses palpated, and no cervical lymphadenopathy. Supple, full range of motion without nuchal rigidity, or vertebral point tenderness. Chest/axilla: Normal chest wall appearance and motion. Nontender with no deformity. No lesions are appreciated. Cardiovascular: Regular rate and rhythm with a normal S1 and S2. No gallops, murmurs, or rubs. Normal PMI, no JVD. No pulse deficits. Respiratory: Lungs have equal breath sounds bilaterally, clear to auscultation and percussion. No rales, rhonchi or wheezes noted. No increased work of breathing, no retractions or nasal flaring. Abdomen/GI: Soft, with normal bowel sounds. No distension or tympany. No guarding or rebound. No evidence of tenderness throughout. Back: No spinal tenderness. No costovertebral tenderness. Skin: Warm, dry with normal turgor. Normal color with no rashes, no lesions, and no evidence of cellulitis. MS/ Extremity: Pulses equal, no cyanosis. Neurovascular intact. Full, normal range of motion. Pain swelling no sign of septic arthritis Neuro: Awake and alert, GCS 15, oriented to person, place, time, and situation. Cranial nerves II-XII grossly intact. Motor strength 5/5 in all extremities. Sensory grossly intact. Psych: Awake, alert, with orientation to person, place and time. Behavior, mood, and affect are within normal limits Vital Signs: 11/29 02:45 BP 191 / 133; Pulse 93; Resp 18; Temp 98; Pulse Ox 96% ; Weight 107.95 kg; Height 5 ft. rv 8 in. ; 03:28 BP 189 / 137; Pulse 110; Resp 19; Pulse Ox 95% on R/A; rv 04:30 BP 141 / 93; Pulse 79; Resp 18; Pulse Ox 96% ; pf1 05:30 BP 125 / 92; Pulse 77; Resp 16; Pulse Ox 96% on R/A; pf1 02:45 Body Mass Index 36.19 (107.95 kg, 172.72 cm) rv [place] Coma Score: 06:31 Eye Response: spontaneous(4). Motor Response: obeys commands(6). Verbal Response: rv oriented(5). Total: 15. 11/30 03:22 Eye Response: spontaneous(4). Motor Response: obeys commands(6). Verbal Response: sp4 oriented(5). Total: 15. MDM: 11/29 02:51 Patient medically screened. sp4 11/30 03:22 Differential Diagnosis Inflammatory arthritis. Data reviewed: vital signs, nurses sp4 notes. ED course: Patient improved after pain medication now. 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 11/29 02:51 Order name: Saline Lock; Complete Time: 03:01 sp4 Administered Medications: 11/29 03:01 Drug: Ketorolac IVP 30 mg IVP once Route: IVP; Site: left hand; rv 06:31 Follow up: Response: No adverse reaction; Marked relief of symptoms rv 03:01 Drug: MethylPrednisoLONE IVP 125 mg IVP once Route: IVP; Site: left hand; rv 06:31 Follow up: Response: No adverse reaction; Marked relief of symptoms rv 03:01 Drug: cloNIDine PO 0.3 mg PO once Route: PO; rv 06:31 Follow up: Response: No adverse reaction; Marked relief of symptoms rv Disposition Summary: 11/30/23 06:15 Discharge Ordered Notes: Location: Home sp4 Problem: new sp4 Symptoms: have improved sp4 Condition: Stable sp4 Diagnosis - Pain in left knee sp4 - Acute left knee inflammatory arthritis , acute left knee effusion sp4 Followup: sp4 - With: Private Physician - When: 7 - 10 days - Reason: Recheck today's complaints Discharge Instructions: - Discharge Summary Sheet sp4 - Arthritis sp4 Forms: - Patient Portal Instructions sp4 Prescriptions: - acetaminophen-codeine 300-60 mg Oral tablet - take 1 tablet ORAL route every 6 hours; 20 tablet; Refills: 0, Product sp4 Selection Permitted - meloxicam 15 mg Oral tablet - take 1 tablet ORAL route every 12 hours PRN pain; 60 tablet; Refills: 0, sp4 Product Selection Permitted - Prednisone 20 mg Oral Tablet - take 2 tablets ORAL route once daily for 5 days; 10 tablet; Refills: 0, Product sp4 Selection Permitted Signatures: Jacob Lo RN RN rv Potepalov, Sergey, MD MD sp4
--- NOTE | 2023-11-30 06:16 | ER ---
Nurse's Notes [facility] Name: Seble Potter II Age: 38 yrs Sex: Male : 1985 Arrival Date: 11/30/2023 Time: 02:33 Bed 16 Private MD: Diagnosis: Pain in left knee;Acute left knee inflammatory arthritis , acute left knee effusion Presentation: 11/29 02:45 Chief complaint: Patient states: HX OF JOINT DISEASE, WORSENING LEFT KNEE PAIN AND rv SWELLING TODAY. UNABLE TO CONTROL PAIN WITH PRESCRIBED MEDICATION. Coronavirus screen: At this time, the client does not indicate any symptoms associated with coronavirus-19. Ebola Screen: No symptoms or risks identified at this time. Initial Sepsis Screen: Does the patient meet any 2 criteria? No. Patient's initial sepsis screen is negative. Does the patient have a suspected source of infection? No. Patient's initial sepsis screen is negative. Risk Assessment: Do you want to hurt yourself or someone else? Patient reports no desire to harm self or others. Onset of symptoms was November 30, 2023. 02:45 Method Of Arrival: Wheelchair rv 02:45 Acuity: KARL 2 rv Triage Assessment: 02:47 General: Appears uncomfortable, Behavior is calm, cooperative. Pain: Complains of pain rv in left knee. Neuro: Level of Consciousness is awake, alert, obeys commands, Oriented to person, place, time, situation. Cardiovascular: Capillary refill < 3 seconds Patient's skin is warm and dry. Respiratory: Airway is patent Respiratory effort is even, unlabored. GI: No signs and/or symptoms were reported involving the gastrointestinal system. : No signs and/or symptoms were reported regarding the genitourinary system. Musculoskeletal: Swelling present in left knee. Historical: - Allergies: 02:47 Sulfa (Sulfonamide Antibiotics); rv - PMHx: 02:47 ankylosing spondilitis; Colitis; Diabetes - NIDDM; DVT; Gout; Kidney stones; rv - PSHx: 02:47 Spinal Fusion; rv - Immunization history:: Adult Immunizations up to date. - Social history:: Smoking status: Patient denies any tobacco usage or history of. - Family history:: not pertinent. Screenin:49 [facility] ED Fall Risk Assessment (Adult) History of falling in the last 3 months, rv including since admission No falls in past 3 months (0 pts) Score/Fall Risk Level 3 or more points = High Risk Oriented to surroundings, Maintained a safe environment, Educated pt \T\ family on fall prevention, incl call for assistance when getting out of bed, Assessed \T\ reinforced patient's understanding of fall precautions. Abuse screen: Denies threats or abuse. Denies injuries from another. Nutritional screening: No deficits noted. Tuberculosis screening: No symptoms or risk factors identified. Vital Signs: 02:45 BP 191 / 133; Pulse 93; Resp 18; Temp 98; Pulse Ox 96% ; Weight 107.95 kg; Height 5 ft. rv 8 in. ; 03:28 BP 189 / 137; Pulse 110; Resp 19; Pulse Ox 95% on R/A; rv 04:30 BP 141 / 93; Pulse 79; Resp 18; Pulse Ox 96% ; pf1 05:30 BP 125 / 92; Pulse 77; Resp 16; Pulse Ox 96% on R/A; pf1 02:45 Body Mass Index 36.19 (107.95 kg, 172.72 cm) rv Klaudia Coma Score: 06:31 Eye Response: spontaneous(4). Motor Response: obeys commands(6). Verbal Response: rv oriented(5). Total: 15. 03/17 03:22 Eye Response: spontaneous(4). Motor Response: obeys commands(6). Verbal Response: sp4 oriented(5). Total: 15. ED Course: 16 02:35 Patient arrived in ED. mr 02:44 Samm Ballesteros MD is Attending Physician. sp4 02:47 Triage completed. rv 02:47 Arm band placed on right wrist. rv 02:49 Jacob Lo RN is Primary Nurse. rv 02:49 Patient has correct armband on for positive identification. Client placed on continuous rv cardiac and pulse oximetry monitoring. NIBP monitoring applied. 02:49 No provider procedures requiring assistance completed. rv 03:01 Inserted saline lock: 22 gauge in left hand, using aseptic technique. rv 06:32 IV discontinued, intact, bleeding controlled, No redness/swelling at site. Pressure rv dressing applied. Administered Medications: 03:01 Drug: Ketorolac IVP 30 mg IVP once Route: IVP; Site: left hand; rv 06:31 Follow up: Response: No adverse reaction; Marked relief of symptoms rv 03:01 Drug: MethylPrednisoLONE IVP 125 mg IVP once Route: IVP; Site: left hand; rv 06:31 Follow up: Response: No adverse reaction; Marked relief of symptoms rv 03:01 Drug: cloNIDine PO 0.3 mg PO once Route: PO; rv 06:31 Follow up: Response: No adverse reaction; Marked relief of symptoms rv Medication: 02:49 VIS not applicable for this client. rv Outcome: 06:15 Discharge ordered by MD. moss 06:32 Discharged to home walker rv 06:32 Condition: good 06:32 Discharge instructions given to patient, Instructed on discharge instructions, follow up and referral plans. medication usage, Demonstrated understanding of instructions, follow-up care, medications, Prescriptions given X 3, 06:32 Patient left the ED. rv Signatures: Adelia Barron, James Ramirez mr Jacob Lo, RN RN rv Dee De León, ALTON RN pf1 Samm Ballesteros MD MD sp4
[2023-11-30 06:41] VITALS: TEMP 98; O2SAT 96
[2023-11-30 07:11] VITALS: BP 125/92
== END ==
LOC: ER 02:33
DX: M13.862 Other specified arthritis, left knee (principal); M25.462 Effusion, left knee; Z88.2 Allergy status to sulfonamides
CPT/HCPCS: 96375; 96374; 99284; J2930

== ENCOUNTER 2024-01-23 11:35 | Emergency (ER) | payer SELFPAY ==
[2024-01-23] MEDS ORDERED: KETOROLAC 30 MG/ML INJ ONE (12:52)
[2024-01-23] MEDS ORDERED: dexAMETHasone 10 MG/ML VIAL ONE (12:52)
--- NOTE | 2024-01-23 13:42 | EDPHYS ---
Physician Documentation [facility] Name: Seble Potter II Age: 38 yrs Sex: Male : 1985 Arrival Date: 01/23/2024 Time: 11:35 Bed 10 Private MD: ED Physician Burke Yang HPI: 01/22 12:31 This 38 yrs old Male presents to ER via Ambulatory with complaints of Arthritis Flare ms3 Up. 12:31 38-year-old male with past medical history of ankylosing spondylitis, colitis, ms3 diabetes, DVT, gout, kidney stones presents to the emergency department for ankylosing spondylitis flare. Patient states symptoms have been ongoing for 2 weeks. He denies nausea, vomiting, fevers, chills, urinary incontinence or retention, bowel incontinence or constipation. He states his pain is a 4/10. With movement the pain increases to an 8/10, remaining still the pain is a 4/10. Historical: - Allergies: 11:53 Sulfa (Sulfonamide Antibiotics); ph - PMHx: 11:53 ankylosing spondilitis; Colitis; Diabetes - NIDDM; DVT; Gout; Kidney stones; ph - PSHx: 11:53 Spinal Fusion; ph - Immunization history:: Adult Immunizations up to date. - Infectious Disease History:: Denies. - Social history:: Smoking status: Patient denies any tobacco usage or history of. ROS: 12:31 Constitutional: Negative for fever, and chills. Neck: Negative for injury, pain, and ms3 swelling, Cardiovascular: Negative for chest pain, and palpitations. Respiratory: Negative for shortness of breath, cough, wheezing, and pleuritic chest pain, Abdomen/GI: Negative for abdominal pain, nausea, vomiting, diarrhea, and constipation, 12:31 Back: Positive for Back pain, Exam: 12:31 Constitutional: This is a well developed, well nourished patient who is awake, alert, ms3 and in no acute distress. Head/Face: Normocephalic, atraumatic. Chest/axilla: Normal chest wall appearance and motion. Nontender with no deformity. Cardiovascular: Regular rate and rhythm with a normal S1 and S2. No gallops, murmurs, or rubs. Normal PMI, no JVD. No pulse deficits. Respiratory: Lungs have equal breath sounds bilaterally, clear to auscultation and percussion. No rales, rhonchi or wheezes noted. No increased work of breathing, no retractions or nasal flaring. Abdomen/GI: Soft, non-tender, with normal bowel sounds. No distension or tympany. No guarding or rebound. No evidence of tenderness throughout. Skin: Warm, dry with normal turgor. Normal color with no rashes, no lesions, and no evidence of cellulitis. MS/ Extremity: Pulses equal, no cyanosis. Neurovascular intact. Full, normal range of motion. 12:31 Back: pain, that is moderate, of the thoracic area and lumbar area, Vital Signs: 11:51 BP 137 / 113; Pulse 98; Resp 18; Temp 97.7; Pulse Ox 99% on R/A; Weight 108.86 kg; ph Height 5 ft. 10 in. ; Pain 7/10; 13:48 Pain 4/10; me1 13:48 Pain 4/10; me1 14:09 BP 142 / 87; Pulse 94; Resp 18; Pulse Ox 100% on R/A; Pain 4/10; me1 11:51 Body Mass Index 34.44 (108.86 kg, 177.8 cm) ph 11:51 Pain Scale: Adult ph 13:48 Pain Scale: Adult me1 13:48 Pain Scale: Adult me1 14:09 Pain Scale: Adult me1 MDM: 12:19 Patient medically screened. ms3 12:31 Differential diagnosis: Ankylosing spondylitis versus muscle spasm versus ms3 musculoskeletal. 13:42 Data reviewed: vital signs, nurses notes, and as a result, I will discharge patient. I ms3 considered the following discharge prescriptions or medication management in the emergency department Medications were administered in the Emergency Department. See MAR. Counseling: I had a detailed discussion with the patient and/or guardian regarding the historical points, exam findings, and any diagnostic results supporting the discharge/admit diagnosis, the need for outpatient follow up, to return to the emergency department if symptoms worsen or persist or if there are any questions or concerns that arise at home. Special discussion: I discussed with the patient/guardian in detail that at this point there is no indication for admission to the hospital. It is understood, however, that if the symptoms persist or worsen the patient needs to return immediately for re-evaluation. ED course: On reevaluation patient is improved, alert and orient x 4, no apparent distress, nontoxic-appearing, speaking full sentences. Patient to follow-up with primary care physician in 2 to 3 days. All questions were answered return precautions discussed include worsening symptoms, or any other concerns.. Administered Medications: 12:58 Drug: Ketorolac IM 15 mg IM once Route: IM; Site: right deltoid; me1 13:48 Follow up: Pain 4/10 Adult; Response: No adverse reaction; Pain is decreased me1 12:58 Drug: Dexamethasone IM 10 mg IM once Route: IM; Site: left deltoid; me1 13:48 Follow up: Pain 4/10 Adult; Response: No adverse reaction; Pain is decreased me1 Disposition Summary: 01/23/24 13:41 Discharge Ordered Notes: Location: Home ms3 Condition: Stable ms3 Diagnosis - Ankylosing spondylitis of unspecified sites in spine ms3 Followup: ms3 - With: Rolando Souza DO - When: 2 - 3 days - Reason: Recheck today's complaints Discharge Instructions: - Discharge Summary Sheet ms3 - Ankylosing Spondylitis, Adult ms3 Forms: - Medication Reconciliation Form ms3 - Antibiotic Education ms3 - Prescription Opioid Use ms3 - Patient Portal Instructions ms3 - Leadership Thank You Letter ms3 Signatures: Naya Snatoyo, RN RN Burke Yang DO DO ms3 Jessica Luis RN RN me1
--- NOTE | 2024-01-23 13:42 | ER ---
Nurse's Notes [facility] Name: Seble Potter II Age: 38 yrs Sex: Male : 1985 Arrival Date: 01/23/2024 Time: 11:35 Bed 10 Private MD: Diagnosis: Ankylosing spondylitis of unspecified sites in spine Presentation: 01/22 11:51 Chief complaint: Patient states: Arthritis flare up x 1 week, regular medications not ph helping, c/o pain all over but worse in R shoulder and mid back area. Coronavirus screen: Vaccine status: Patient reports receiving the 2nd dose of the covid vaccine. Ebola Screen: No symptoms or risks identified at this time. Initial Sepsis Screen: Does the patient meet any 2 criteria? No. Patient's initial sepsis screen is negative. Does the patient have a suspected source of infection? No. Patient's initial sepsis screen is negative. Risk Assessment: Do you want to hurt yourself or someone else? Patient reports no desire to harm self or others. Onset of symptoms was January 23, 2024. 11:51 Method Of Arrival: Ambulatory ph 11:51 Acuity: KARL 4 ph Triage Assessment: 11:53 General: Appears in no apparent distress. Behavior is calm, cooperative. Pain: ph Complains of pain in posterior aspect of right shoulder. Historical: - Allergies: 11:53 Sulfa (Sulfonamide Antibiotics); ph - PMHx: 11:53 ankylosing spondilitis; Colitis; Diabetes - NIDDM; DVT; Gout; Kidney stones; ph - PSHx: 11:53 Spinal Fusion; ph - Immunization history:: Adult Immunizations up to date. - Infectious Disease History:: Denies. - Social history:: Smoking status: Patient denies any tobacco usage or history of. Screenin:44 [facility] ED Fall Risk Assessment (Adult) History of falling in the last 3 months, me1 including since admission No falls in past 3 months (0 pts) Confusion or Disorientation No (0 pts) Intoxicated or Sedated No (0 pts) Impaired Gait No (0 pts) Mobility Assist Device Used No (0 pt) Altered Elimination No (0 pt) Score/Fall Risk Level 0 - 2 = Low Risk Maintained a safe environment, Provided non-skid footwear, Hourly rounding (assess needs \T\ fall precautionary measures) done. Abuse screen: Denies threats or abuse. Nutritional screening: No deficits noted. Tuberculosis screening: No symptoms or risk factors identified. Assessment: 13:44 General: Appears uncomfortable, well groomed, well developed, well nourished, Behavior me1 is calm, cooperative, appropriate for age, Reports Arthritis flare up x 1 week, regular medications not helping, c/o pain all over but worse in R shoulder and mid back area. Pain: Complains of pain in lumbar area and thoracic area and right arm and posterior aspect of right shoulder Pain does not radiate. Pain currently is 10 out of 10 on a pain scale. Quality of pain is described as aching, Pain began gradually, a week ago. Neuro: Level of Consciousness is awake, alert, obeys commands, Oriented to person, place, time, situation, Appropriate for age. Cardiovascular: Capillary refill < 3 seconds Patient's skin is warm and dry. Respiratory: Airway is patent Respiratory effort is even, unlabored, Respiratory pattern is regular, symmetrical. GI: No signs and/or symptoms were reported involving the gastrointestinal system. : No signs and/or symptoms were reported regarding the genitourinary system. EENT: No signs and/or symptoms were reported regarding the EENT system. Derm: Skin is intact, is healthy with good turgor, Skin is pink, warm \T\ dry. normal. Musculoskeletal: Reports pain in lumbar area and thoracic area and right arm and posterior aspect of right shoulder. Vital Signs: 11:51 BP 137 / 113; Pulse 98; Resp 18; Temp 97.7; Pulse Ox 99% on R/A; Weight 108.86 kg; ph Height 5 ft. 10 in. ; Pain 7/10; 13:48 Pain 4/10; me1 13:48 Pain 4/10; me1 14:09 BP 142 / 87; Pulse 94; Resp 18; Pulse Ox 100% on R/A; Pain 4/10; me1 11:51 Body Mass Index 34.44 (108.86 kg, 177.8 cm) ph 11:51 Pain Scale: Adult ph 13:48 Pain Scale: Adult me1 13:48 Pain Scale: Adult me1 14:09 Pain Scale: Adult me1 ED Course: 11:36 Patient arrived in ED. rg4 11:53 Triage completed. ph 11:53 Burke Yang DO is Attending Physician. ms3 11:53 Arm band placed on Patient placed in waiting room, Patient notified of wait time. ph 12:34 Jessica Luis, RN is Primary Nurse. me1 13:40 Rolando Souza DO is Referral Physician. ms3 13:44 Patient has correct armband on for positive identification. Placed in gown. Bed in low me1 position. Call light in reach. Provided Education on: POC. Verbalized understanding. . 13:44 No provider procedures requiring assistance completed. me1 14:21 Patient did not have IV access during this emergency room visit. me1 Administered Medications: 12:58 Drug: Ketorolac IM 15 mg IM once Route: IM; Site: right deltoid; me1 13:48 Follow up: Pain 4/10 Adult; Response: No adverse reaction; Pain is decreased me1 12:58 Drug: Dexamethasone IM 10 mg IM once Route: IM; Site: left deltoid; me1 13:48 Follow up: Pain 4/10 Adult; Response: No adverse reaction; Pain is decreased me1 Medication: 13:44 VIS not applicable for this client. me1 Outcome: 13:41 Discharge ordered by MD. ms3 14:09 Discharged to home ambulatory, me1 14:09 Condition: stable 14:09 Discharge instructions given to patient, Instructed on discharge instructions, follow up and referral plans. Demonstrated understanding of instructions, follow-up care, 14:10 Patient left the ED. me1 Signatures: Naya Santoyo, RN RN ph Iveth Gillespie rg4 Burke Yang DO DO ms3 Jessica Luis, RN RN me1 Corrections: (The following items were deleted from the chart) 13:44 11:51 Chief complaint: Patient states: Arthritis flare up x 1 week, regular medications me1 not helping, c/o pain all over but worse in R shoulder and mid back area ph
[2024-01-23 14:47] VITALS: BP 137/113; TEMP 97.7; O2SAT 99
== END 2024-01-23 14:10 | disposition home or self-care (01) ==
LOC: ER 11:35
DX: M45.9 Ankylosing spondylitis of unspecified sites in spine (principal)
CPT/HCPCS: 96372; 99284; J1100

== ENCOUNTER 2024-02-06 20:48 | Emergency (ER) | payer SELFPAY ==
[2024-02-06] MEDS ORDERED: dexAMETHasone 10 MG/ML VIAL ONE (22:26)
[2024-02-06] MEDS ORDERED: MORPHINE 4 MG/ML SYR ONE (22:26)
[2024-02-06] MEDS ORDERED: KETOROLAC 30 MG/ML INJ ONE (22:26)
[2024-02-06] MEDS ORDERED: MORPHINE 2 MG/ML SYR ONE (22:26)
--- NOTE | 2024-02-06 23:59 | ER ---
Nurse's Notes [facility] Name: Seble Potter II Age: 38 yrs Sex: Male : 1985 Arrival Date: 02/06/2024 Time: 20:48 Bed 11 Private MD: Diagnosis: Chronic pain, not elsewhere classified Presentation: 02/05 21:04 Chief complaint: Patient states: I fell trying to get my daughter to the hospital and jw7 it has caused my ankylosing spondylitis to flare up even more and now I have Right shoulder, bilateral knees, and right hip pain that started about a month ago. Coronavirus screen: At this time, the client does not indicate any symptoms associated with coronavirus-19. Ebola Screen: No symptoms or risks identified at this time. Initial Sepsis Screen: Does the patient meet any 2 criteria? Yes Does the patient have a suspected source of infection? No. Patient's initial sepsis screen is negative. Risk Assessment: Do you want to hurt yourself or someone else? Patient reports no desire to harm self or others. Onset of symptoms was February 06, 2024. 21:04 Method Of Arrival: Wheelchair jw7 21:04 Acuity: KARL 3 as6 Triage Assessment: 21:07 General: Appears in no apparent distress. uncomfortable, Behavior is calm, cooperative, jw7 appropriate for age. Pain: Complains of pain in Right shoulder, bilateral knees, and right hip Pain does not radiate. Pain currently is 7 out of 10 on a pain scale. Quality of pain is described as sharp, throbbing, Pain began gradually, Is intermittent, Aggravated by increased activity. EENT: No deficits noted. No signs and/or symptoms were reported regarding the EENT system. Neuro: Level of Consciousness is awake, alert, obeys commands, Oriented to person, place, time, situation, Appropriate for age. Cardiovascular: Capillary refill < 3 seconds Patient's skin is warm and dry. Respiratory: Airway is patent Respiratory effort is even, unlabored, Respiratory pattern is regular, symmetrical. GI: Abdomen is round non-distended. : No signs and/or symptoms were reported regarding the genitourinary system. Derm: Skin is intact, is healthy with good turgor, Skin is dry, Skin is normal, Skin temperature is warm. Musculoskeletal: Circulation, motion, and sensation intact. Range of motion: intact in all extremities. Historical: - Allergies: 21:07 Sulfa (Sulfonamide Antibiotics); jw7 - Home Meds: 21:07 Metformin Oral [Active]; Tylenol #3 Oral as needed [Active]; BP Medicine Oral as needed jw7 [Active]; - PMHx: 21:07 ankylosing spondilitis; Colitis; Diabetes - NIDDM; DVT; Gout; Kidney stones; jw7 - PSHx: 21:07 Spinal Fusion; jw7 - Immunization history:: Adult Immunizations up to date, Client reports having NOT received the Covid vaccine. Flu vaccine is not up to date. - Infectious Disease History:: Denies. - Social history:: Smoking status: Patient denies any tobacco usage or history of. Patient/guardian denies using alcohol, street drugs, IV drugs. Screenin/24 00:12 [facility] ED Fall Risk Assessment (Adult) History of falling in the last 3 months, as6 including since admission No falls in past 3 months (0 pts) Confusion or Disorientation No (0 pts) Intoxicated or Sedated No (0 pts) Impaired Gait No (0 pts) Mobility Assist Device Used Yes (1 pt) Altered Elimination No (0 pt) Score/Fall Risk Level 0 - 2 = Low Risk Oriented to surroundings, Maintained a safe environment, Educated pt \T\ family on fall prevention, incl call for assistance when getting out of bed, Assessed \T\ reinforced patient's understanding of fall precautions. Abuse screen: Denies threats or abuse. Denies injuries from another. Nutritional screening: No deficits noted. Tuberculosis screening: No symptoms or risk factors identified. Assessment: 02/05 21:25 General: Appears uncomfortable, well developed, well nourished, Behavior is calm, me1 cooperative, appropriate for age, Reports I fell trying to get my daughter to the hospital and it has caused my ankylosing spondylitis to flare up even more and now I have Right shoulder, bilateral knees, and right hip pain that started about a month ago. Pain: Complains of pain in right shoulder, right hip, bilateral knee Pain does not radiate. Pain currently is 10 out of 10 on a pain scale. Quality of pain is described as aching, sharp, Pain began gradually, Is continuous. Neuro: Level of Consciousness is awake, alert, obeys commands, Oriented to person, place, time, situation, Appropriate for age. Cardiovascular: Patient's skin is warm and dry. Respiratory: Airway is patent Trachea midline Respiratory effort is even, unlabored, Respiratory pattern is regular, symmetrical. GI: No signs and/or symptoms were reported involving the gastrointestinal system. : No signs and/or symptoms were reported regarding the genitourinary system. EENT: No signs and/or symptoms were reported regarding the EENT system. Derm: Skin is intact, is healthy with good turgor, Skin is pink, warm \T\ dry. Musculoskeletal: Reports pain in right shoulder, right hip, bilateral knees. Injury Description: fell about a month ago. Vital Signs: 21:04 BP 149 / 113; Pulse 114; Resp 20 S; Temp 99.7(O); Pulse Ox 98% on R/A; Weight 106.59 jw7 kg; Height 5 ft. 10 in. ; Pain 7/10; 02/06 00:13 BP 139 / 93; Pulse 91; Resp 16; Pulse Ox 100% ; as6 02/05 21:04 Body Mass Index 33.72 (106.59 kg, 177.8 cm) [facility] 02/05 21:04 Pain Scale: Adult jw7 ED Course: 02/05 20:49 Patient arrived in ED. jj6 21:07 Triage completed. jw7 21:07 Arm band placed on. jw7 21:47 Esequiel Kat PA is PHCP. 21:47 Irma Souza MD is Attending Physician. 02/06 00:12 Bed in low position. Call light in reach. Provided Education on: follow up. as6 00:12 No provider procedures requiring assistance completed. Patient did not have IV access as6 during this emergency room visit. Administered Medications: 02/05 22:35 Drug: Dexamethasone IM 10 mg IM once Route: IM; Site: left deltoid; as6 02/06 00:12 Follow up: Response: No adverse reaction as6 02/05 22:35 Drug: Ketorolac IM 30 mg IM once Route: IM; Site: right deltoid; as6 02/06 00:12 Follow up: Response: No adverse reaction as6 02/05 22:35 Not Given (Patient Refused): morphine6 mg IM once; if patient is not driving as6 Medication: 02/06 00:13 VIS not applicable for this client. as6 Outcome: 02/05 23:58 Discharge ordered by MD. tarango 02/06 00:13 Discharged to home ambulatory, with family, as6 Condition: stable Discharge instructions given to patient, Instructed on discharge instructions, follow up and referral plans. Demonstrated understanding of instructions, follow-up care, 00:13 Patient left the ED. as6 Signatures: Esequiel Kat PA PA cp Jeffries, Jennifer jj6 Erlin Roberts RN RN as6 Tiffany Bond RN RN jw7 Jessica Luis RN RN [facility] [place]: (The following items were deleted from the chart) 02/05 21:34 21:04 Acuity: KARL 4 jw7 as6 02/06 00:12 02/05 21:04 Chief complaint: Patient states: I fell trying to get my daughter to the [address] and it has caused my ankylosing spondylitis to flare up even more and now I have Right shoulder, bilateral knees, and right hip pain that started about a month ago jw7
--- NOTE | 2024-02-06 23:59 | EDPHYS ---
Physician Documentation [facility] Name: Seble Potter II Age: 38 yrs Sex: Male : 1985 Arrival Date: 02/06/2024 Time: 20:48 Bed 11 Private MD: ED Physician Irma Souza HPI: 02/05 22:15 This 38 yrs old Male presents to ER via Wheelchair with complaints of Shoulder Pain, cp Leg Pain, Hip Pain. 22:15 The patient or guardian complains of pain, that is chronic. right shoulder. Context: cp worse after fall today. Associated signs and symptoms: Pertinent positives: multiple joint pain: knees, ankles. Patient reports PMHX of Ankylosis Spondylosis. Increased joint pain due to flare-up but admits fall today. Declines any xrays of right shoulder and admits shoulder pain worse after fall. Would pain and steroid injection. Historical: - Allergies: 21:07 Sulfa (Sulfonamide Antibiotics); jw7 - Home Meds: 21:07 Metformin Oral [Active]; Tylenol #3 Oral as needed [Active]; BP Medicine Oral as needed jw7 [Active]; - PMHx: 21:07 ankylosing spondilitis; Colitis; Diabetes - NIDDM; DVT; Gout; Kidney stones; jw7 - PSHx: 21:07 Spinal Fusion; jw7 - Immunization history:: Adult Immunizations up to date, Client reports having NOT received the Covid vaccine. Flu vaccine is not up to date. - Infectious Disease History:: Denies. - Social history:: Smoking status: Patient denies any tobacco usage or history of. Patient/guardian denies using alcohol, street drugs, IV drugs. ROS: 22:20 Constitutional: Negative for fever, cp 22:20 Cardiovascular: Negative for chest pain, palpitations, 22:20 MS/extremity: Positive for pain, multiple joints with right shoulder pain worse today, 22:20 Neuro: Negative for altered mental status, dizziness, headache, weakness, 22:20 All other systems are negative, Exam: 22:25 Constitutional: The patient appears in no acute distress, alert, awake, cp non-diaphoretic, non-toxic, well developed, well nourished, uncomfortable, 22:25 Head/Face: Normocephalic, atraumatic. cp 22:25 Eyes: Periorbital structures: appear normal, Conjunctiva: normal, no exudate, no injection, Sclera: no appreciated abnormality, Lids and lashes: appear normal, bilaterally, 22:25 ENT: External ear(s): are unremarkable, Nose: is normal, Mouth: Lips: moist, Oral mucosa: pink and intact, moist, Posterior pharynx: is normal, airway is patent, no erythema, no exudate, 22:25 Neck: ROM/movement: is normal, is supple, no meningismus, no nuchal rigidity, 22:25 Chest/axilla: Inspection: normal, 22:25 Cardiovascular: Rate: tachycardic, Rhythm: regular, Edema: ankle edema, that is mild, 22:25 Respiratory: the patient does not display signs of respiratory distress, Respirations: normal, no use of accessory muscles, no retractions, labored breathing, is not present, Breath sounds: are clear throughout, no decreased breath sounds, no stridor, no wheezing, 22:25 Abdomen/GI: Inspection: abdomen appears normal, Palpation: abdomen is soft and non-tender, in all quadrants, 22:25 Musculoskeletal/extremity: Joints: the right shoulder displays pain at rest, painful range of motion, 22:25 Neuro: Orientation: to person, place \T\ time. Mentation: is normal, Motor: moves all fours, no focal deficits, Sensation: no obvious gross deficits, Vital Signs: 21:04 BP 149 / 113; Pulse 114; Resp 20 S; Temp 99.7(O); Pulse Ox 98% on R/A; Weight 106.59 jw7 kg; Height 5 ft. 10 in. ; Pain 03/25; 02/06 00:13 BP 139 / 93; Pulse 91; Resp 16; Pulse Ox 100% ; as6 02/05 21:04 Body Mass Index 33.72 (106.59 kg, 177.8 cm) [facility] 02/05 21:04 Pain Scale: Adult [facility] MDM: 02/05 21:47 Patient medically screened. cp 23:57 Data reviewed: vital signs, nurses notes, and as a result, I will discharge patient. cp 23:57 Differential diagnosis: fracture, flare-up of chronic condition. Care significantly cp affected by the following chronic conditions: Diabetes. Counseling: I had a detailed discussion with the patient and/or guardian regarding the historical points, exam findings, and any diagnostic results supporting the discharge/admit diagnosis, to return to the emergency department if symptoms worsen or persist or if there are any questions or concerns that arise at home. Response to treatment: the patient's symptoms have markedly improved after treatment, and as a result, I will discharge patient. Administered Medications: 22:35 Drug: Dexamethasone IM 10 mg IM once Route: IM; Site: left deltoid; 02/06 00:12 Follow up: Response: No adverse reaction 02/05 22:35 Drug: Ketorolac IM 30 mg IM once Route: IM; Site: right deltoid; 02/06 00:12 Follow up: Response: No adverse reaction 02/05 22:35 Not Given (Patient Refused): morphine6 mg IM once; if patient is not driving as6 Disposition Summary: 02/06/24 23:58 Discharge Ordered Notes: Location: Home cp Problem: an acute exacerbation cp Symptoms: have improved cp Condition: Stable cp Diagnosis - Chronic pain, not elsewhere classified cp Followup: cp - With: Private Physician - When: 2 - 3 days - Reason: Recheck today's complaints Discharge Instructions: - Discharge Summary Sheet cp - Chronic Pain, Adult cp Forms: - Medication Reconciliation Form cp - Antibiotic Education cp - Prescription Opioid Use cp - Patient Portal Instructions cp - Leadership Thank You Letter cp Signatures: Esequiel Kat PA PA cp Erlin Roberts, RN RN as6 Tiffany Bond RN RN jw7
[2024-02-07 01:00] VITALS: BP 139/93; TEMP 99.7; O2SAT 100
== END 2024-02-07 00:13 | disposition home or self-care (01) ==
LOC: ER 20:48
DX: G89.29 Other chronic pain (principal)
CPT/HCPCS: 96372; 99284; J1100; J2270